=== PATIENT | male | born 1940 | race Caucasian/White ===

== ENCOUNTER → 2016-08-06 | Outpatient (CLI) | payer MEDICARE, OTHER ==
--- NOTE | 2016-08-07 09:12 | PN ---
This patient is coming in for a followup regarding obstructive sleep apnea. His last evaluation was in December of 2013. The patient was diagnosed having severe MYNOR with an AHI of 52 and currently he is on CPAP pressure of 9 cm of water. Note that he has switched his mask to an AirFit P10, medium-size and has been very compliant with the treatment. He continues to see adequate benefit from his CPAP machine. He is waking up alert and refreshed during the day. His weight is up by around 14 pounds, knowing that his baseline weight was around 200. He tells me that is in 2014 due to complicates of breast cancer. The patient himself was involved in a positive stress test and subsequently was found to have extensive coronary artery disease and he underwent a CABG in January of 2015 at [facility]. In regard to his sleep apnea treatment, the patient had a CPAP pressure of 9 cm of water. His treatment remains successful. He is using an AirFit P10 nasal pillow along with a chinstrap. Waking up alert and awake during the day. No hypersomnia or sleepiness during the day. [place] score is only at 8. BP is 135/72, pulse 50, respiration 16, temperature 98.2, saturation 99% on room air. Weight is 214, height is 69 inches. BMI is 31.1. GENERAL APPEARANCE: Calm, comfortable. HEENT: Crowding of posterior pharynx. There is no goiter or neck masses. LUNGS: Clear to auscultation. HEART: Sounds are regular rate and rhythm. Normal S1, S2. No S3, no S4. No murmurs. ABDOMEN: Soft, nontender. No organomegaly. EXTREMITIES: No edema, cyanosis, or clubbing. IMPRESSION: 1. Obstructive sleep apnea, severe, with an apnea-hypopnea index of 52, still on CPAP pressure of 9 cm of water with adequate compliance. The patient is averaging more than 6 hours of CPAP use every night. 2. Coronary artery disease with recent bypass surgery. 3. Diabetes mellitus. 4. Hypertension. 5. Hyperlipidemia. 6. Bronchial asthma. 7. History of periodic limb movements. 8. History of ( )behavioral disorder, currently inactive and stable. PLAN: 1. Continue CPAP at the same level of pressure. 2. Encourage weight loss. 3. Implement good sleep hygiene measures. 4. Tight control of cardiovascular risk factors. 5. Renew his CPAP supplies. 6. See me back in a year or two, if needed.
== END ==
LOC: SLEEP 13:25
PROVIDERS: ATTEND Internal Medicine Critical Care Medicine
DX: G47.33 Obstructive sleep apnea (adult) (pediatric) (principal)

== ENCOUNTER 2016-10-08 08:05 | Day surgery (SDC) | payer MEDICARE, OTHER ==
[2016-10-03 13:10] VITALS: BMI 28.8
[~2016-10-08 08:05] MED LIST: LACTATED RINGERS 1,000 ML IV SCH
[2016-10-08 08:25] VITALS: RESP 16; TEMP 97.3
[2016-10-08] MEDS ORDERED: LIDOCAINE 1% 20 ML VIAL (10MG/ML) FOR IV START SQ ONE (08:30)
[2016-10-08 08:31] LABS: Glucose,Whole Blood 90 mg/dL (75-99)
[2016-10-08] MEDS ORDERED: PROPOFOL 10 MG/ML 20 ML VIAL IV ONE (09:06)
[2016-10-08] MEDS ORDERED: LIDOCAINE 1% INJ 10MG/ML (20 ML MDV) ONE (09:06)
--- NOTE | 2016-10-08 09:37 | P.PCN ---
Date of Procedure: 10/08/16 Preoperative Diagnosis: Postoperative Diagnosis: Procedure(s) Performed: Procedure: Total colonoscopy with biopsy. Preoperative diagnosis: Change in bowel habits. Postoperative diagnosis: Sigmoid diverticulosis with no evidence of acute diverticulitis, strictures, polyps or cancer. Preparation: HalfLytely prep. Sedation: Was provided by anesthesia. Brief clinical history: The patient is a 76-year-old male was referred for this evaluation for change in bowel habits. The patient has been experiencing diarrheic bowel movements for several months. This has not improved with change in his medications which was suspected to be the cause of his symptoms. His last colonoscopy was in 2011. This evaluation is to assess for neoplasia, colitis or other pathology. Procedure: With the patient on his left lateral decubitus position and after informed consent and adequate sedation, the perianal area was inspected and it did not show any fissures or fistulas. There were no masses felt on digital rectal examination. The Olympus CFQ 160L video colonoscope was then inserted in the rectum in the usual fashion and advanced to the cecum. There were multiple diverticular orifices seen scattered in the sigmoid with no evidence of acute diverticulitis or strictures. The mucosa appeared healthy. No polyps or tumors were seen. I obtained biopsies from the right colon than I retroflexed endoscope in the rectum before the endoscope was withdrawn. The patient tolerated the procedure well. Plan: The patient was reassured. Discussed dietary measures. Will await biopsy results and make further plans based on his course and biopsy results. He will follow up with you as planned and I will be happy to see in the office of his symptoms persist. Implants: Indications for Procedure: Operative Findings: Description of Procedure:
[2016-10-08 09:48] LABS: Glucose,Whole Blood 88 mg/dL (75-99)
[2016-10-08 09:52] VITALS: BP 115/67; PULSE 53
== END 2016-10-08 10:18 | disposition home or self-care (01) ==
LOC: ORWHC2ENDO 08:05
DX: K57.30 Diverticulosis of large intestine without perforation or abscess without bleeding (principal); R19.4 Change in bowel habit; R19.7 Diarrhea, unspecified; E11.9 Type 2 diabetes mellitus without complications; K21.9 Gastro-esophageal reflux disease without esophagitis; I25.10 Atherosclerotic heart disease of native coronary artery without angina pectoris; M19.90 Unspecified osteoarthritis, unspecified site; G47.33 Obstructive sleep apnea (adult) (pediatric); J45.909 Unspecified asthma, uncomplicated; N40.0 Benign prostatic hyperplasia without lower urinary tract symptoms; Z95.1 Presence of aortocoronary bypass graft; Z79.82 Long term (current) use of aspirin; Z79.899 Other long term (current) drug therapy; Z88.1 Allergy status to other antibiotic agents; Z88.2 Allergy status to sulfonamides
CPT/HCPCS: 88305; 45380; J2001; J2704

== ENCOUNTER 2017-01-09 20:35 | Inpatient (IN) | payer MEDICARE, OTHER ==
[2017-01-09] MEDS ORDERED: ACETAMINOPHEN TAB 500 MG TAB PO STA (20:55)
[2017-01-09] MEDS ORDERED: ALBUTEROL NEBULIZED 2.5 MG/3 ML INHALATION STA (20:56)
[2017-01-09] MEDS ORDERED: IPRATROPIUM 0.5 MG/2.5 ML NEBU INHALATION STA (20:56)
--- NOTE | 2017-01-09 20:59 | ED ---
General Adult HPI - General Chief complaint: Chest Pain Stated complaint: Chest Pain Time Seen by Provider: 01/09/17 20:43 Source: patient, RN notes reviewed Mode of arrival: ambulatory Limitations: no limitations - History of Present Illness Initial comments: 76 yo male with history of CAD and asthma presents with a one-week history of cough. Cough is productive of yellow sputum. Patient also reports fever chills. His had some nausea and near vomiting, no peter vomiting noted. No diarrhea. Abdominal pain. No rash. No dysuria. Patient does have some bilateral chest pain which is been progressive over the past several days, secondary to coughing. Patient does have history of pneumonia in the past. - Related Data Home Medications Medication Instructions Recorded Confirmed Aspirin EC [Ecotrin] 81 mg PO HS 12/05/14 01/09/17 Lovastatin [Mevacor] 40 mg PO HS 12/05/14 01/09/17 Montelukast Sodium [Singulair] 10 mg PO HS 12/05/14 01/09/17 Omeprazole [PriLOSEC] 20 mg PO DAILY PRN 12/05/14 01/09/17 Metoprolol Tartrate 12.5 mg PO QAM 05/15/15 01/09/17 Tamsulosin [Flomax] 0.4 mg PO DAILY 05/15/15 01/09/17 Beclomethasone Dipropionate [Qvar 1 puff INHALATION RT-BID 06/27/15 01/09/17 40 mcg/puff] Cholecalciferol [Vitamin D3] 1,000 unit PO DAILY 10/03/16 01/09/17 Fexofenadine HCl [Shruthi Allergy] 180 mg PO DAILY 10/03/16 01/09/17 Nerium 1 tab PO DAILY 10/03/16 01/09/17 Acetaminophen Tab [Tylenol Tab] 500 mg PO Q6H PRN 01/09/17 01/09/17 L.acidoph,Paracasei, B.lactis 1 cap PO DAILY 01/09/17 01/09/17 [Probiotic] Allergies Allergy/AdvReac Type Severity Reaction Status Date / Time Sulfa (Sulfonamide Allergy Severe Itching Verified 01/09/17 22:01 Antibiotics) honey Allergy Unknown Verified 01/09/17 22:01 metformin Allergy Diarrhea Verified 01/09/17 22:01 Milk Containing Products Allergy Unknown Verified 01/09/17 22:01 [Dairy] sulfamethoxazole Allergy Diarrhea Verified 01/09/17 22:01 [From Bactrim] trimethoprim [From Bactrim] Allergy Diarrhea Verified 01/09/17 22:01 yeast, dried [yeast] Allergy Unknown Verified 01/09/17 22:01 apples Allergy Unknown Uncoded 01/09/17 20:41 Review of Systems ROS Statement: Those systems with pertinent positive or pertinent negative responses have been documented in the HPI. ROS Other: All systems not noted in ROS Statement are negative. Past Medical History Past Medical History: Asthma, Diabetes Mellitus, GERD/Reflux, Hyperlipidemia, Osteoarthritis (OA), Sleep Apnea/CPAP/BIPAP Additional Past Medical History / Comment(s): migraines, diarrhea, diet control diabetic, History of Any Multi-Drug Resistant Organisms: None Reported Past Surgical History: Coronary Bypass/CABG, Orthopedic Surgery, Tonsillectomy Additional Past Surgical History / Comment(s): marlyn rotator cuff (rt x 2), rt ankle reconstructions, tera fundoplication., CABG 01/2015, nasal surgery, left knee arthroscopy, marlyn cataracts Past Anesthesia/Blood Transfusion Reactions: No Reported Reaction Past Psychological History: Depression Smoking Status: Never smoker - Past Family History Mother Family Medical History: Cancer Additional Family Medical History / Comment(s): skin Father Family Medical History: Congestive Heart Failure (CHF) Additional Family Medical History / Comment(s): pacemaker/aicd General Exam Limitations: no limitations General appearance: alert, in no apparent distress Head exam: Present: atraumatic, normocephalic Eye exam: Present: normal appearance, PERRL ENT exam: Present: normal exam, mucous membranes dry Neck exam: Present: normal inspection. Absent: meningismus Respiratory exam: Present: respiratory distress, wheezes, rhonchi, prolonged expiratory Cardiovascular Exam: Present: normal rhythm, bradycardia GI/Abdominal exam: Present: soft. Absent: distended, tenderness Extremities exam: Present: normal inspection, normal capillary refill. Absent: pedal edema Neurological exam: Present: alert, oriented X3 Psychiatric exam: Present: normal affect, normal mood Skin exam: Present: warm, dry, intact. Absent: cyanosis, diaphoretic Course Vital Signs 01/09/17 01/09/17 01/09/17 20:37 21:14 21:37 Temperature 101.5 F H Pulse Rate 52 L 65 60 Respiratory 20 20 Rate Blood Pressure 140/96 130/65 O2 Sat by Pulse 93 L 95 Oximetry 01/09/17 01/09/17 01/09/17 21:48 21:56 22:19 Temperature 101.3 F H Pulse Rate 59 L 71 72 Respiratory 18 Rate Blood Pressure 118/67 O2 Sat by Pulse 96 Oximetry - Reevaluation(s) Reevaluation #1: 01/09/17 22:47 Patient continues to have conversational dyspnea, continues to require supplemental oxygen. EKG Findings - EKG Comments: EKG Findings:: EKG shows sinus rhythm with frequent PVCs, ventricular rate 76, IN interval 160, QRS duration 92, QTC 423, no ST segment elevation Medical Decision Making - Medical Decision Making 76 yo male presents with a one-week history of cough productive yellow sputum, fever and chills. Patient's found have a left lower lobe pneumonia. He does also have a history of asthma. Laboratory studies reveal what looks, 11.7. Lactic acid is normal at 1.4. Troponin is negative. EKG nonischemic. Patient has conversational dyspnea, continued next 3 wheeze, he does require supplemental oxygen. He will be admitted for treatment of community-acquired pneumonia and asthma exacerbation. Diagnosis: Community acquired pneumonia, asthma exacerbation. - Lab Data Result diagrams: 01/09/17 20:57 01/09/17 20:57 Lab Results 01/09/17 01/09/17 01/09/17 Range/Units 20:57 20:57 20:57 WBC 11.7 H (3.8-10.6) k/uL RBC 4.79 (4.30-5.90) m/uL Hgb 15.2 (13.0-17.5) gm/dL Hct 46.2 (39.0-53.0) % MCV 96.5 (80.0-100.0) fL MCH 31.8 (25.0-35.0) pg MCHC 32.9 (31.0-37.0) g/dL RDW 14.0 (11.5-15.5) % Plt Count 214 (150-450) k/uL Neutrophils % 85 % Lymphocytes % 5 % Monocytes % 8 % Eosinophils % 0 % Basophils % 0 % Neutrophils # 9.9 H (1.3-7.7) k/uL Lymphocytes # 0.6 L (1.0-4.8) k/uL Monocytes # 0.9 (0-1.0) k/uL Eosinophils # 0.0 (0-0.7) k/uL Basophils # 0.0 (0-0.2) k/uL PT (9.0-12.0) sec INR (<1.2) APTT (22.0-30.0) sec Sodium 135 L (137-145) mmol/L Potassium 4.0 (3.5-5.1) mmol/L Chloride 103 (98-107) mmol/L Carbon Dioxide 18 L (22-30) mmol/L Anion Gap 14 mmol/L BUN 9 (9-20) mg/dL Creatinine 0.80 (0.66-1.25) mg/dL Est GFR (MDRD) Af Amer >60 (>60 ml/min/1.73 sqM) Est GFR (MDRD) Non-Af >60 (>60 ml/min/1.73 sqM) Glucose 136 H (74-99) mg/dL Plasma Lactic Acid Blayne 1.4 (0.7-2.0) mmol/L Calcium 8.9 (8.4-10.2) mg/dL Total Bilirubin 1.7 H (0.2-1.3) mg/dL AST 25 (17-59) U/L ALT 38 (21-72) U/L Alkaline Phosphatase 92 (38-126) U/L Troponin I (0.000-0.034) ng/mL Total Protein 7.1 (6.3-8.2) g/dL Albumin 3.6 (3.5-5.0) g/dL 01/09/17 01/09/17 Range/Units 20:57 20:57 WBC (3.8-10.6) k/uL RBC (4.30-5.90) m/uL Hgb (13.0-17.5) gm/dL Hct (39.0-53.0) % MCV (80.0-100.0) fL MCH (25.0-35.0) pg MCHC (31.0-37.0) g/dL RDW (11.5-15.5) % Plt Count (150-450) k/uL Neutrophils % % Lymphocytes % % Monocytes % % Eosinophils % % Basophils % % Neutrophils # (1.3-7.7) k/uL Lymphocytes # (1.0-4.8) k/uL Monocytes # (0-1.0) k/uL Eosinophils # (0-0.7) k/uL Basophils # (0-0.2) k/uL PT 11.1 (9.0-12.0) sec INR 1.1 (<1.2) APTT 27.2 (22.0-30.0) sec Sodium (137-145) mmol/L Potassium (3.5-5.1) mmol/L Chloride (98-107) mmol/L Carbon Dioxide (22-30) mmol/L Anion Gap mmol/L BUN (9-20) mg/dL Creatinine (0.66-1.25) mg/dL Est GFR (MDRD) Af Amer (>60 ml/min/1.73 sqM) Est GFR (MDRD) Non-Af (>60 ml/min/1.73 sqM) Glucose (74-99) mg/dL Plasma Lactic Acid Blayne (0.7-2.0) mmol/L Calcium (8.4-10.2) mg/dL Total Bilirubin (0.2-1.3) mg/dL AST (17-59) U/L ALT (21-72) U/L Alkaline Phosphatase (38-126) U/L Troponin I <0.012 (0.000-0.034) ng/mL Total Protein (6.3-8.2) g/dL Albumin (3.5-5.0) g/dL Disposition Clinical Impression: Community acquired pneumonia, Asthma exacerbation Disposition: ADMITTED IP TO THIS [facility] Condition: Stable Referrals: Jeyson Montalvo MD [Primary Care Provider] - 1-2 days Decision to Admit Reason: Admit from EC Decision Date: 01/09/17 Decision Time: 22:50
[2017-01-09] MEDS: SODIUM CHLORIDE 0.9% 500 ML IV SCH ×2 (21:09→22:00)
[2017-01-09 21:12] LABS: Basophils % (A) 0 %; CH 33.5; CHCM 34.9; Eosinophils % (A) 0 %; HCT 46.2 % (39.0-53.0); HDW 2.51; HGB 15.2 gm/dL (13.0-17.5); Luc # (Auto) 0.23; Luc % (Auto) 2; Lymphocytes # (A) 0.6 k/uL (1.0-4.8); Lymphocytes % (A) 5 %; MCH 31.8 pg (25.0-35.0); MCHC 32.9 g/dL (31.0-37.0); MCV 96.5 fL (80.0-100.0); Mean Platelet Volume 7.8; Monocytes # (A) 0.9 k/uL (0-1.0); Monocytes % (A) 8 %; Neutrophils # (A) 9.9 k/uL (1.3-7.7); Neutrophils % (A) 85 %; RBC 4.79 m/uL (4.30-5.90); WBC 11.7 k/uL (3.8-10.6); WBC (Perox) 11.73
[2017-01-09 21:21] LABS: ALT 38 U/L (21-72); AST 25 U/L (17-59); Alkaline Phosphatase 92 U/L (38-126); Anion Gap 14 mmol/L; Blood Urea Nitrogen 9 mg/dL (9-20); Calcium 8.9 mg/dL (8.4-10.2); Carbon Dioxide 18 mmol/L (22-30); Chloride 103 mmol/L (98-107); Glucose 136 mg/dL (74-99); Non-African American GFR(MDRD) >60 (>60 ml/min/1.73 sqM); Sodium 135 mmol/L (137-145); Total Bilirubin 1.7 mg/dL (0.2-1.3); Total Protein 7.1 g/dL (6.3-8.2)
[2017-01-09 21:27] LABS: INR 1.1 (<1.2); Partial Thromboplastin Time 27.2 sec (22.0-30.0); Prothrombin Time 11.1 sec (9.0-12.0)
--- NOTE | 2017-01-09 21:36 | XR ---
EXAMINATION TYPE: XR chest 2V DATE OF EXAM: 01/09/2017 COMPARISON: 12/14/2014 HISTORY: Asthma. Cough and fever TECHNIQUE: Frontal and lateral views of the chest are obtained. FINDINGS: There is no heart failure. There are sternal wires. Costophrenic angles are clear. There i s no sign of pleural effusion. There is coarsening of lung markings in the left lower lobe. IMPRESSION: There is mild infiltrate in the left lower lobe that is new or increased compared to old exam. No heart failure.
[2017-01-09] MEDS ORDERED: ACETAMINOPHEN TAB 325 MG TAB PO PRN (22:50)
[2017-01-09] MEDS ORDERED: NALOXONE 0.4 MG/ML 1 ML VIAL IV PRN (22:50)
[2017-01-09] MEDS ORDERED: IBUPROFEN 400 MG TAB PO PRN (22:50)
[2017-01-09 22:52] LABS: Appearance,Urine Clear (Clear); Bilirubin,Urine 1+ (Negative); Glucose,Urine (UA) Negative (Negative); Ketones,Urine 3+ (Negative); Leukocyte Esterase,Urine Negative (Negative); Mucus,Urine Few /hpf; Nitrite,Urine Negative (Negative); PH, Urine 6.5 (5.0-8.0); Particle Count 4662; Protein,Urine 1+ (Negative); RBC,Urine 1 /hpf (0-5); Specific Gravity,Urine 1.017 (1.001-1.035); UA Billing (MACRO vs. MICRO) MICRO; WBC,Urine 1 /hpf (0-5)
[2017-01-09] MEDS ORDERED: predniSONE 50 MG TAB PO STA (22:52)
[2017-01-09] MEDS: AZITHROMYCIN 500 MG in SODIUM CHLORIDE 0.9% 250 ML IVPB SCH (22:55)
[2017-01-09] MEDS: SODIUM CHLORIDE 0.9% 1,000 ML IV SCH (22:59)
[2017-01-10] MEDS ORDERED: IPRATROPIUM-ALBUTEROL 3 ML NEB INHALATION SCH
[2017-01-10 00:54] VITALS: BMI 28.4
[2017-01-10] MEDS: IPRATROPIUM-ALBUTEROL 3 ML NEB INHALATION SCH ×4 (07:06→20:16)
[2017-01-10 07:41] LABS: Basophils % (A) 0 %; CH 32.4; CHCM 32.9; Eosinophils % (A) 0 %; HCT 47.2 % (39.0-53.0); HGB 15.6 gm/dL (13.0-17.5); Luc # (Auto) 0.12; Luc % (Auto) 1; Lymphocytes # (A) 0.4 k/uL (1.0-4.8); Lymphocytes % (A) 4 %; MCH 32.7 pg (25.0-35.0); Mean Platelet Volume 7.2; Monocytes # (A) 0.3 k/uL (0-1.0); Monocytes % (A) 4 %; Neutrophils # (A) 8.3 k/uL (1.3-7.7); Neutrophils % (A) 91 %; RBC 4.77 m/uL (4.30-5.90); RDW 13.1 % (11.5-15.5); WBC 9.1 k/uL (3.8-10.6); WBC (Perox) 9.64
[2017-01-10 07:51] LABS: ALT 34 U/L (21-72); AST 27 U/L (17-59); Alkaline Phosphatase 88 U/L (38-126); Anion Gap 13 mmol/L; Blood Urea Nitrogen 12 mg/dL (9-20); Calcium 8.7 mg/dL (8.4-10.2); Carbon Dioxide 21 mmol/L (22-30); Chloride 105 mmol/L (98-107); Glucose 194 mg/dL (74-99); Non-African American GFR(MDRD) >60 (>60 ml/min/1.73 sqM); Sodium 139 mmol/L (137-145); Total Bilirubin 1.1 mg/dL (0.2-1.3); Total Protein 7.1 g/dL (6.3-8.2)
[2017-01-10] MEDS: predniSONE 50 MG TAB PO SCH (08:43)
--- NOTE | 2017-01-10 10:13 | P.CNPUL ---
History of Present Illness Consult date: 01/10/17 Requesting physician: Nadeem Li Reason for consult: dyspnea, cough, pneumonia Chief complaint: Cough, fever, bilateral chest pain History of present illness: This is a 76-year-old white male with previous medical history of asthma, pneumonia, diabetes mellitus, hyperlipidemia, osteoarthritis and sleep apnea, who presented to the emergency department last night on 01/09/2017 with 1 week history of productive cough with yellow sputum. Patient was on a trip [place] with his girlfriend when he noted chills, fatigue, greased appetite and increased productive cough. He developed bilateral chest pain from increased coughing. She is on Qvar inhaler for maintenance treatments, albuterol inhaler and albuterol nebulizers, but he did not use his rescue inhaler or the nebulizer. His girlfriend was also experiencing similar symptoms. He decided to cut his trip short and return home. He stated Dr. Slade for his pulmonary needs on a regular basis, so he called for an appointment which was scheduled for 01/10/2017 at 10:00 Dr. Slade. Last night however his symptoms got increasingly worse and he came in for evaluation to the emergency room. He states his asthma has been under good control for quite a while. He had never been intubated, but had been hospitalized for asthma exacerbations in the past. He is a never smoker, but states stress and ALLERGY season exacerbate his symptoms. Chest x-ray from 01/09/2017 shows mild infiltrate in the left lower lobe, coarsening of lung markings in the left lower lobe. Costophrenic angles are clear. No signs of pleural effusion. On examination patient's lung sounds a few scattered wheezes bilaterally, and respiratory crackles at posterior bases. No signs of respiratory distress. Review of Systems Constitutional: Denies chills, Denies fever Eyes: denies blurred vision, denies pain Ears, nose, mouth and throat: Denies headache, Denies sore throat Cardiovascular: Denies chest pain, Denies shortness of breath Respiratory: Reports dyspnea, Reports excessive sputum, Reports pain, Reports sleep apnea, Reports wheezing, Denies cough Gastrointestinal: Denies abdominal pain, Denies diarrhea, Denies nausea, Denies vomiting Musculoskeletal: Denies myalgias Integumentary: Denies pruritus, Denies rash Neurological: Denies numbness, Denies weakness Psychiatric: Denies anxiety, Denies depression Endocrine: Denies fatigue, Denies weight change Past Medical History Past Medical History: Asthma, Diabetes Mellitus, GERD/Reflux, Hyperlipidemia, Osteoarthritis (OA), Sleep Apnea/CPAP/BIPAP Additional Past Medical History / Comment(s): migraines, diarrhea, diet control diabetic,. 01/10/17 Patient reports that he no longer has DM as of reports from his PCP in August History of Any Multi-Drug Resistant Organisms: None Reported Past Surgical History: Coronary Bypass/CABG, Orthopedic Surgery, Tonsillectomy Additional Past Surgical History / Comment(s): marlyn rotator cuff (rt x 2), rt ankle reconstructions, tera fundoplication., CABG 01/2015, nasal surgery, left knee arthroscopy, marlyn cataracts Past Anesthesia/Blood Transfusion Reactions: No Reported Reaction Past Psychological History: Depression Additional Psychological History / Comment(s): . Smoking Status: Never smoker Past Alcohol Use History: Daily Additional Past Alcohol Use History / Comment(s): pt drinks 4 glasses of wine/ day Past Drug Use History: None Reported - Past Family History Mother Family Medical History: Cancer Additional Family Medical History / Comment(s): skin Father Family Medical History: Congestive Heart Failure (CHF) Additional Family Medical History / Comment(s): pacemaker/aicd Medications and Allergies Home Medications Medication Instructions Recorded Confirmed Type Aspirin EC [Ecotrin] 81 mg PO HS 12/05/14 01/09/17 History Lovastatin [Mevacor] 40 mg PO HS 12/05/14 01/09/17 History Montelukast Sodium [Singulair] 10 mg PO HS 12/05/14 01/09/17 History Omeprazole [PriLOSEC] 20 mg PO DAILY PRN 12/05/14 01/09/17 History Metoprolol Tartrate 12.5 mg PO QAM 05/15/15 01/09/17 History Tamsulosin [Flomax] 0.4 mg PO DAILY 05/15/15 01/09/17 History Beclomethasone Dipropionate [Qvar 1 puff INHALATION RT-BID 06/27/15 01/09/17 History 40 mcg/puff] Cholecalciferol [Vitamin D3] 1,000 unit PO DAILY 10/03/16 01/09/17 History Fexofenadine HCl [Shruthi Allergy] 180 mg PO DAILY 10/03/16 01/09/17 History Nerium 1 tab PO DAILY 10/03/16 01/09/17 History Acetaminophen Tab [Tylenol Tab] 500 mg PO Q6H PRN 01/09/17 01/09/17 History L.acidoph,Paracasei, B.lactis 1 cap PO DAILY 01/09/17 01/09/17 History [Probiotic] Allergies Allergy/AdvReac Type Severity Reaction Status Date / Time Sulfa (Sulfonamide Allergy Severe Itching Verified 01/09/17 22:01 Antibiotics) honey Allergy Unknown Verified 01/09/17 22:01 metformin Allergy Diarrhea Verified 01/09/17 22:01 Milk Containing Products Allergy Unknown Verified 01/09/17 22:01 [Dairy] sulfamethoxazole Allergy Diarrhea Verified 01/09/17 22:01 [From Bactrim] trimethoprim [From Bactrim] Allergy Diarrhea Verified 01/09/17 22:01 yeast, dried [yeast] Allergy Unknown Verified 01/09/17 22:01 apples Allergy Unknown Uncoded 01/09/17 20:41 Physical Exam Vitals: Vital Signs Temp Pulse Pulse Pulse Resp BP BP 01/10/17 08:33 98.3 F 86 18 144/72 01/10/17 07:17 74 01/10/17 07:07 72 01/10/17 05:14 18 01/10/17 00:09 98.3 F 62 16 122/59 01/10/17 00:05 64 18 01/09/17 23:36 98.7 F 74 18 121/66 01/09/17 22:19 101.3 F H 72 18 118/67 01/09/17 21:56 71 01/09/17 21:48 59 L 01/09/17 21:37 60 01/09/17 21:14 65 20 130/65 01/09/17 20:37 101.5 F H 52 L 20 140/96 Pulse Ox 01/10/17 08:33 94 L 01/10/17 07:17 01/10/17 07:07 01/10/17 05:14 01/10/17 00:09 96 01/10/17 00:05 01/09/17 23:36 96 01/09/17 22:19 96 01/09/17 21:56 01/09/17 21:48 01/09/17 21:37 01/09/17 21:14 95 01/09/17 20:37 93 L Intake and Output 01/09/17 01/10/17 01/10/17 22:59 06:59 14:59 Intake Total 400 Balance 400 Intake: Intake, IV Titration 400 Amount Sodium Chloride 0.9% 1, 400 000 ml @ 50 mls/hr IV . Q20H MARTHA Rx#:[id number] Other: # Voids 3 Weight 92.533 kg 92.533 kg GENERAL EXAM: Alert, active, comfortable in no apparent distress. HEAD: Normocephalic. EYES: Normal reaction of pupils, equal size. NOSE: Clear with pink turbinates. THROAT: No erythema or exudates. NECK: No masses, no JVD. CHEST: No chest wall deformity. LUNGS: Equal air entry with no rhonchi. Inspiratory crackles over posterior bases, few scattered wheezes CVS: S1 and S2 normal with no audible mumurs, regular rhythm. ABDOMEN: No hepatosplenomegaly, normal bowel sounds, no guarding or rigidity. SPINE: No scoliosis or deformity SKIN: No rashes CENTRAL NERVOUS SYSTEM: No focal deficits, tone is normal in all 4 extremities. Results - Laboratory Findings CBC and BMP: 01/10/17 06:58 01/10/17 06:58 PT/INR, D-dimer PT 11.1 sec (9.0-12.0) 01/09/17 20:57 INR 1.1 (<1.2) 01/09/17 20:57 Abnormal lab findings: Abnormal Labs 01/09/17 01/09/17 01/09/17 20:57 20:57 22:42 WBC 11.7 H Neutrophils # 9.9 H Lymphocytes # 0.6 L Sodium 135 L Carbon Dioxide 18 L Glucose 136 H Total Bilirubin 1.7 H Urine Protein 1+ H Urine Ketones 3+ H Urine Bilirubin 1+ H Urine Mucus Few H 01/10/17 01/10/17 06:58 06:58 WBC Neutrophils # 8.3 H Lymphocytes # 0.4 L Sodium Carbon Dioxide 21 L Glucose 194 H Total Bilirubin Urine Protein Urine Ketones Urine Bilirubin Urine Mucus - Diagnostic Findings Chest x-ray: report reviewed Assessment and Plan Plan: Assessment: #1. Acute left lower lobe pneumonia, community-acquired #2. Acute bronchial asthma exacerbation #3. Obstructive sleep apnea, severe, with AHI index of 52, on CPAP of 9 cm of water at home #4 coronary artery disease with recent bypass surgery. #5 diabetes mellitus #6 hypertension #7 hyperlipidemia #8 sigmoid diverticulosis, status post colonoscopy with biopsy on 10/08/2016 Plan: Continue with antibiotic coverage in the form of Rocephin and Zithromax, continue with DuoNeb nebulized treatments and prednisone. Patient states he feels dramatically better today. Would like to go home today. Vital signs are stable, on 2 L per nasal cannula with O2 saturations around 96. Increase activity as tolerated. We'll continue with IV antibiotics for today. Patient can be discharged home tomorrow morning assuming his condition continues to improve. He is in agreement with the plan. I performed a history & physical examination of the patient and discussed their management with my nurse practitioner, Jaclyn Encarnacion. I reviewed the nurse practitioner's note and agree with the documented findings and plan of care.
--- NOTE | 2017-01-10 12:44 | P.HPIM ---
History of Present Illness 76-year-old pleasant gentleman came in with complains of cough with yellow sputum production for about a week and patient was having fevers and generalized weakness. Patient does have history of asthma. Patient is found to have infiltrate in the left lower lobe. Patient was started on Rocephin and is otherwise along with prednisone patient was wheezing apparently yesterday which she has gotten better. Patient denied any shortness of breath orthopnea or PND. Patient denied any dysuria patient denied any nausea vomiting. Patient is feeling much better today. Patient is not in any significant respiratory distress at this point of time. Review of Systems REVIEW OF SYSTEMS: CONSTITUTIONAL: No fever, no malaise, no fatigue. HEENT: No recent visual problems or hearing problems. Denied any sore throat. CARDIOVASCULAR: No chest pain, orthopnea, PND, no palpitations, no syncope. PULMONARY: no hemoptysis. GASTROINTESTINAL: No diarrhea, no nausea, no vomiting, no abdominal pain. Normoactive bowel sounds. NEUROLOGICAL: No headaches, no weakness, no numbness. HEMATOLOGICAL: Denies any bleeding or petechiae. GENITOURINARY: Denies any burning micturition, frequency, or urgency. MUSCULOSKELETAL/RHEUMATOLOGICAL: Denies any joint pain, swelling, or any muscle pain. ENDOCRINE: Denies any polyuria or polydipsia. The rest of the 14-point review of systems is negative. Past Medical History Past Medical History: Asthma, Diabetes Mellitus, GERD/Reflux, Hyperlipidemia, Osteoarthritis (OA), Sleep Apnea/CPAP/BIPAP Additional Past Medical History / Comment(s): migraines, diarrhea, diet control diabetic,. 01/10/17 Patient reports that he no longer has DM as of reports from his PCP in August History of Any Multi-Drug Resistant Organisms: None Reported Past Surgical History: Coronary Bypass/CABG, Orthopedic Surgery, Tonsillectomy Additional Past Surgical History / Comment(s): marlyn rotator cuff (rt x 2), rt ankle reconstructions, tera fundoplication., CABG 01/2015, nasal surgery, left knee arthroscopy, marlyn cataracts Past Anesthesia/Blood Transfusion Reactions: No Reported Reaction Past Psychological History: Depression Additional Psychological History / Comment(s): . Smoking Status: Never smoker Past Alcohol Use History: Daily Additional Past Alcohol Use History / Comment(s): pt drinks 4 glasses of wine/ day Past Drug Use History: None Reported - Past Family History Mother Family Medical History: Cancer Additional Family Medical History / Comment(s): skin Father Family Medical History: Congestive Heart Failure (CHF) Additional Family Medical History / Comment(s): pacemaker/aicd Medications and Allergies Home Medications Medication Instructions Recorded Confirmed Type Aspirin EC [Ecotrin] 81 mg PO HS 12/05/14 01/09/17 History Lovastatin [Mevacor] 40 mg PO HS 12/05/14 01/09/17 History Montelukast Sodium [Singulair] 10 mg PO HS 12/05/14 01/09/17 History Omeprazole [PriLOSEC] 20 mg PO DAILY PRN 12/05/14 01/09/17 History Metoprolol Tartrate 12.5 mg PO QAM 05/15/15 01/09/17 History Tamsulosin [Flomax] 0.4 mg PO DAILY 05/15/15 01/09/17 History Beclomethasone Dipropionate [Qvar 1 puff INHALATION RT-BID 06/27/15 01/09/17 History 40 mcg/puff] Cholecalciferol [Vitamin D3] 1,000 unit PO DAILY 10/03/16 01/09/17 History Fexofenadine HCl [Shruthi Allergy] 180 mg PO DAILY 10/03/16 01/09/17 History Nerium 1 tab PO DAILY 10/03/16 01/09/17 History Acetaminophen Tab [Tylenol Tab] 500 mg PO Q6H PRN 01/09/17 01/09/17 History L.acidoph,Paracasei, B.lactis 1 cap PO DAILY 01/09/17 01/09/17 History [Probiotic] Allergies Allergy/AdvReac Type Severity Reaction Status Date / Time Sulfa (Sulfonamide Allergy Severe Itching Verified 01/09/17 22:01 Antibiotics) honey Allergy Unknown Verified 01/09/17 22:01 metformin Allergy Diarrhea Verified 01/09/17 22:01 Milk Containing Products Allergy Unknown Verified 01/09/17 22:01 [Dairy] sulfamethoxazole Allergy Diarrhea Verified 01/09/17 22:01 [From Bactrim] trimethoprim [From Bactrim] Allergy Diarrhea Verified 01/09/17 22:01 yeast, dried [yeast] Allergy Unknown Verified 01/09/17 22:01 apples Allergy Unknown Uncoded 01/09/17 20:41 Physical Exam Vitals: Vital Signs Temp Pulse Pulse Pulse Resp BP BP 01/10/17 11:44 72 01/10/17 11:34 68 01/10/17 08:33 98.3 F 86 18 144/72 01/10/17 07:17 74 01/10/17 07:07 72 01/10/17 05:14 18 01/10/17 00:09 98.3 F 62 16 122/59 01/10/17 00:05 64 18 01/09/17 23:36 98.7 F 74 18 121/66 01/09/17 22:19 101.3 F H 72 18 118/67 01/09/17 21:56 71 01/09/17 21:48 59 L 01/09/17 21:37 60 01/09/17 21:14 65 20 130/65 01/09/17 20:37 101.5 F H 52 L 20 140/96 Pulse Ox 01/10/17 11:44 01/10/17 11:34 01/10/17 08:33 94 L 01/10/17 07:17 01/10/17 07:07 01/10/17 05:14 01/10/17 00:09 96 01/10/17 00:05 01/09/17 23:36 96 01/09/17 22:19 96 01/09/17 21:56 01/09/17 21:48 01/09/17 21:37 01/09/17 21:14 95 01/09/17 20:37 93 L Intake and Output 01/09/17 01/10/17 01/10/17 22:59 06:59 14:59 Intake Total 400 Balance 400 Intake: Intake, IV Titration 400 Amount Sodium Chloride 0.9% 1, 400 000 ml @ 50 mls/hr IV . Q20H [facility] Rx#:[id number] Other: Voiding Method Toilet # Voids 3 Weight 92.533 kg 92.533 kg PHYSICAL EXAMINATION: GENERAL: The patient is alert and oriented x3, not in any acute distress. Well developed, well nourished. HEENT: Pupils are round and equally reacting to light. EOMI. No scleral icterus. No conjunctival pallor. Normocephalic, atraumatic. No pharyngeal erythema. No thyromegaly. CARDIOVASCULAR: S1 and S2 present. No murmurs, rubs, or gallops. PULMONARY: Chest is clear to auscultation, no wheezing or crackles. rhonchorous breath sounds ABDOMEN: Soft, nontender, nondistended, normoactive bowel sounds. No palpable organomegaly. MUSCULOSKELETAL: No joint swelling or deformity. EXTREMITIES: No cyanosis, clubbing, or pedal edema. NEUROLOGICAL: Gross neurological examination did not reveal any focal deficits. SKIN: No rashes. Results CBC & Chem 7: 01/10/17 06:58 01/10/17 06:58 Labs: Abnormal Lab Results - Last 24 Hours (Table) 01/09/17 01/09/17 01/09/17 Range/Units 20:57 20:57 22:42 WBC 11.7 H (3.8-10.6) k/uL Neutrophils # 9.9 H (1.3-7.7) k/uL Lymphocytes # 0.6 L (1.0-4.8) k/uL Sodium 135 L (137-145) mmol/L Carbon Dioxide 18 L (22-30) mmol/L Glucose 136 H (74-99) mg/dL Total Bilirubin 1.7 H (0.2-1.3) mg/dL Urine Protein 1+ H (Negative) Urine Ketones 3+ H (Negative) Urine Bilirubin 1+ H (Negative) Urine Mucus Few H (None) /hpf 01/10/17 01/10/17 Range/Units 06:58 06:58 WBC (3.8-10.6) k/uL Neutrophils # 8.3 H (1.3-7.7) k/uL Lymphocytes # 0.4 L (1.0-4.8) k/uL Sodium (137-145) mmol/L Carbon Dioxide 21 L (22-30) mmol/L Glucose 194 H (74-99) mg/dL Total Bilirubin (0.2-1.3) mg/dL Urine Protein (Negative) Urine Ketones (Negative) Urine Bilirubin (Negative) Urine Mucus (None) /hpf Thrombosis Risk Factor Assmnt - Choose All That Apply Any of the Below Risk Factors Present?: Yes Each Factor Represents 1 point: Obesity (BMI >25), Serious lung disease incl. pneumonia (< 1month) Other Risk Factors: Yes Each Risk Factor Represents 3 Points: Age 75 years or older Thrombosis Risk Factor Assessment Total Risk Factor Score: 5 Thrombosis Risk Factor Assessment Level: High Risk Assessment and Plan Plan: #1 sepsis secondary to pneumonia left lower lobe, community acquired mostly pneumococcal pneumonia patient is on ceftriaxone's demise which will be continued. #2 asthma with minimal exacerbation with improvement in symptoms of wheezing today patient will be can you done oral steroids inhalational treatments. #3 type 2 diabetes mellitus next and 4 gastro-cervical reflux disease #5 hyperlipidemia #6 osteoarthritis #7 sleep apnea for each for which patient uses CPAP machine Patient will be continued on his home medications for above-mentioned chronic medical problems if patient is afebrile and the clinically doing well will be discharged tomorrow on a week of antibiotics.
[2017-01-10] MEDS: SODIUM CHLORIDE 0.9% 1,000 ML IV SCH (16:41)
[2017-01-10] MEDS: AZITHROMYCIN 500 MG in SODIUM CHLORIDE 0.9% 250 ML IVPB SCH (21:03)
[2017-01-11] MEDS: IPRATROPIUM-ALBUTEROL 3 ML NEB INHALATION SCH ×2 (08:15→11:59)
[2017-01-11] MEDS: predniSONE 50 MG TAB PO SCH (08:53)
[2017-01-11] MEDS: SODIUM CHLORIDE 0.9% 1,000 ML IV SCH (11:39)
[2017-01-11 13:37] VITALS: BP 127/74; PULSE 61; RESP 16; TEMP 98.3
--- NOTE | 2017-01-11 13:39 | P.PN ---
Subjective Principal diagnosis: Left lower lobe pneumonia, community-acquired This is a 76-year-old white male with previous medical history of asthma, pneumonia, diabetes mellitus, hyperlipidemia, osteoarthritis and sleep apnea, who presented to the emergency department last night on 01/09/2017 with 1 week history of productive cough with yellow sputum. Patient was on a trip up [place] with his girlfriend when he noted chills, fatigue, greased appetite and increased productive cough. He developed bilateral chest pain from increased coughing. She is on Qvar inhaler for maintenance treatments, albuterol inhaler and albuterol nebulizers, but he did not use his rescue inhaler or the nebulizer. His girlfriend was also experiencing similar symptoms. He decided to cut his trip short and return home. He stated Dr. Slade for his pulmonary needs on a regular basis, so he called for an appointment which was scheduled for 01/10/2017 at 10:00 Dr. Slade. Last night however his symptoms got increasingly worse and he came in for evaluation to the emergency room. He states his asthma has been under good control for quite a while. He had never been intubated, but had been hospitalized for asthma exacerbations in the past. He is a never smoker, but states stress and ALLERGY season exacerbate his symptoms. Chest x-ray from 01/09/2017 shows mild infiltrate in the left lower lobe, coarsening of lung markings in the left lower lobe. Costophrenic angles are clear. No signs of pleural effusion. On examination patient's lung sounds a few scattered wheezes bilaterally, and respiratory crackles at posterior bases. No signs of respiratory distress. Patient is seen again today 01/11/2017 in follow-up on the regular medical floor. He is awake and alert in no acute distress. He is doing better today as compared to yesterday. He has a loose productive cough of yellow sputum. No fever, chills or night sweats. He is maintaining O2 saturations in the 90s on room air. He has been hemodynamically stable. Blood and urine cultures are negative. No leukocytosis. Objective - Vital Signs Vital signs: Vital Signs Temp 97.8 F 01/11/17 07:17 Pulse 72 01/11/17 12:14 Resp 18 01/11/17 07:20 BP 136/74 01/11/17 07:17 Pulse Ox 94 L 01/11/17 07:17 Intake & Output 01/10/17 01/11/17 01/11/17 18:59 06:59 18:59 Intake Total 1075 Balance 1075 Intake: Intake, IV Titration 575 Amount Sodium Chloride 0.9% 1, 575 000 ml @ 50 mls/hr IV . Q20H [facility] Rx#:[id number] Oral 500 Other: Voiding Method Toilet Toilet # Voids 1 2 1 - Exam GENERAL EXAM: Alert, active, comfortable in no apparent distress. HEAD: Normocephalic. EYES: Normal reaction of pupils, equal size. NOSE: Clear with pink turbinates. THROAT: No erythema or exudates. NECK: No masses, no JVD. CHEST: No chest wall deformity. LUNGS: Equal air entry with faint rhonchi left base.. CVS: S1 and S2 normal with no audible murmurs, regular rhythm. ABDOMEN: No hepatosplenomegaly, normal bowel sounds, no guarding or rigidity. SPINE: No scoliosis or deformity SKIN: No rashes CENTRAL NERVOUS SYSTEM: No focal deficits, tone is normal in all 4 extremities. Extremities: There is no peripheral edema. No clubbing, no cyanosis. Peripheral pulses are intact. - Labs CBC & Chem 7: 01/10/17 06:58 01/10/17 06:58 Labs: Microbiology - Last 24 Hours (Table) 01/09/17 22:42 Urine Culture - Final Urine,Voided 01/09/17 21:35 Blood Culture - Preliminary Blood No Growth after 24 hours 01/09/17 20:57 Blood Culture - Preliminary Blood No Growth after 24 hours Assessment and Plan Plan: Assessment: #1. Acute left lower lobe pneumonia, community-acquired #2. Acute bronchial asthma exacerbation #3. Obstructive sleep apnea, severe, with AHI index of 52, on CPAP of 9 cm of water at home #4. Coronary artery disease with recent bypass surgery. #5. Diabetes mellitus #6. Hypertension #7. Hyperlipidemia #8. Sigmoid diverticulosis, status post colonoscopy with biopsy on 10/08/2016 Plan: The patient was seen and evaluated by Dr. Banegas. He is cleared for discharge from the pulmonary standpoint. He did complete his course of oral antibiotics. Continue his home pulmonary medications. Follow up with Dr. Slade in 1-2 weeks' time. We'll repeat a chest x-ray then. He is however encouraged to call sooner with any recurrence of symptoms or other questions or concerns. I have completed a history and physical examination on the above patient. His lungs are mainly clear with just a few scattered rhonchi in the left posterior base. I agree with the note as dictated by my nurse practitioner, Meera Emerson. We have reviewed and discussed the assessment and plan of care.
--- NOTE | 2017-01-11 13:53 | P.DS ---
Providers Date of admission: 01/09/17 22:50 Attending physician: Nadeem Li Primary care physician: [facility] Course: Patient was admitted for left lower lobe pneumonia, community-acquired and also acute bronchial asthma exacerbation patient is clinically doing well will be discharged on antibiotics and weaning dose of steroids. PHYSICAL EXAMINATION: GENERAL: The patient is alert and oriented x3, not in any acute distress. Well developed, well nourished. HEENT: Pupils are round and equally reacting to light. EOMI. No scleral icterus. No conjunctival pallor. Normocephalic, atraumatic. No pharyngeal erythema. No thyromegaly. CARDIOVASCULAR: S1 and S2 present. No murmurs, rubs, or gallops. PULMONARY: Chest is clear to auscultation, no wheezing or crackles. ABDOMEN: Soft, nontender, nondistended, normoactive bowel sounds. No palpable organomegaly. MUSCULOSKELETAL: No joint swelling or deformity. EXTREMITIES: No cyanosis, clubbing, or pedal edema. NEUROLOGICAL: Gross neurological examination did not reveal any focal deficits. SKIN: No rashes. #1 sepsis secondary to pneumonia left lower lobe, community acquired mostly pneumococcal pneumonia #2 asthma with minimal exacerbation w #3 type 2 diabetes mellitus #5 hyperlipidemia #6 osteoarthritis #7 sleep apnea for each for which patient uses CPAP machine Patient Condition at Discharge: Stable Plan - Discharge Summary New Discharge Prescriptions: New predniSONE 10 mg PO DAILY #30 tab Azithromycin [Zithromax Tri-Steve] 500 mg PO DAILY #3 tab Cefuroxime Axetil [Ceftin] 500 mg PO BID #14 tab Continue Omeprazole [PriLOSEC] 20 mg PO DAILY PRN PRN Reason: Heartburn Montelukast Sodium [Singulair] 10 mg PO HS Lovastatin [Mevacor] 40 mg PO HS Aspirin EC [Ecotrin Low Dose] 81 mg PO HS Tamsulosin [Flomax] 0.4 mg PO DAILY Metoprolol Tartrate 12.5 mg PO QAM Beclomethasone Dipropionate [Qvar 40 mcg/puff] 1 puff INHALATION RT-BID Cholecalciferol [Vitamin D3] 1,000 unit PO DAILY Fexofenadine HCl [Shruthi Allergy] 180 mg PO DAILY Nerium 1 tab PO DAILY Acetaminophen Tab [Tylenol] 500 mg PO Q6H PRN PRN Reason: Cold Symptoms L.acidoph,Paracasei, B.lactis [Probiotic] 1 cap PO DAILY Discharge Medication List Aspirin EC [Ecotrin Low Dose] 81 mg PO HS 12/05/14 [History] Lovastatin [Mevacor] 40 mg PO HS 12/05/14 [History] Montelukast Sodium [Singulair] 10 mg PO HS 12/05/14 [History] Omeprazole [PriLOSEC] 20 mg PO DAILY PRN 12/05/14 [History] Metoprolol Tartrate 12.5 mg PO QAM 05/15/15 [History] Tamsulosin [Flomax] 0.4 mg PO DAILY 05/15/15 [History] Beclomethasone Dipropionate [Qvar 40 mcg/puff] 1 puff INHALATION RT-BID [History] Cholecalciferol [Vitamin D3] 1,000 unit PO DAILY 10/03/16 [History] Fexofenadine HCl [Shruthi Allergy] 180 mg PO DAILY 10/03/16 [History] Nerium 1 tab PO DAILY 10/03/16 [History] Acetaminophen Tab [Tylenol] 500 mg PO Q6H PRN 01/09/17 [History] L.acidoph,Paracasei, B.lactis [Probiotic] 1 cap PO DAILY 01/09/17 [History] Azithromycin [Zithromax Tri-Steve] 500 mg PO DAILY #3 tab 01/11/17 [Rx] Cefuroxime Axetil [Ceftin] 500 mg PO BID #14 tab 01/11/17 [Rx] predniSONE 10 mg PO DAILY #30 tab 01/11/17 [Rx] Follow up Appointment(s)/Referral(s): Jesus Alberto Slade DO [Doctor of Osteopathic Medicine] - 1 Week Jeyson Montalvo MD [Primary Care Provider] - 3 Days Patient Instructions/Handouts: Viral Pneumonia (DC) Discharge Disposition: HOME SELF-CARE
[2017-01-11] MEDS ORDERED: AZITHROMYCIN 500 MG TAB PO SCH (21:00)
== END 2017-01-11 13:34 | disposition home or self-care (01) | DRG 871 ==
LOC: EC 20:35 → 3SUR 22:50
PROVIDERS: ADMIT Hospitalist; ATTEND Hospitalist
DX: A41.9 Sepsis, unspecified organism (principal); J13 Pneumonia due to Streptococcus pneumoniae; E11.9 Type 2 diabetes mellitus without complications; J45.901 Unspecified asthma with (acute) exacerbation; I10 Essential (primary) hypertension; F32.9 Major depressive disorder, single episode, unspecified; E78.5 Hyperlipidemia, unspecified; G47.33 Obstructive sleep apnea (adult) (pediatric); I25.10 Atherosclerotic heart disease of native coronary artery without angina pectoris; K21.9 Gastro-esophageal reflux disease without esophagitis; K57.30 Diverticulosis of large intestine without perforation or abscess without bleeding; M19.90 Unspecified osteoarthritis, unspecified site; Z79.899 Other long term (current) drug therapy; Z82.49 Family history of ischemic heart disease and other diseases of the circulatory system; Z95.1 Presence of aortocoronary bypass graft; Z79.82 Long term (current) use of aspirin; Z88.2 Allergy status to sulfonamides
CPT/HCPCS: 36415; 71020; 80053; 81001; 83605; 84484; 85025; 85610; 85730; 87040; 87086; 93005; 94640; 96361; 96365; 99285

== ENCOUNTER → 2017-05-12 | Outpatient (CLI) | payer MEDICARE, OTHER ==
--- NOTE | 2017-05-12 10:49 | US ---
EXAMINATION TYPE: US abdomen complete DATE OF EXAM: 05/12/2017 COMPARISON: NONE CLINICAL HISTORY: R68.81 early satiety; takes medication for asthma; diarrhea EXAM MEASUREMENTS: Liver Length: 14.8 cm Gallbladder Wall: 0.1 cm CBD: 0.3 cm Spleen: 10.6 cm Right Kidney: 10.9 x 5.4 x 5.5 cm Left Kidney: 11.3 x 6.1 x 5.7 cm Pancreas: hyperechoic and tail is obscured by overlying bowel gas Liver: assessed intercostally due to overlying bowel gas; simple appearing cyst noted in right lobe = 1.2 x 1.2 x 1.1cm Gallbladder: wnl Evidence for sonographic Brown's sign: No CBD: wnl Spleen: wnl Right Kidney: mid cortical cyst = 2.7 x 2.1 x 2.5cm; hyperechoic parallel line focus is noted near c yst and suggests calcified vessel hernandez near cortex. Left Kidney: wnl Upper IVC: wnl Abd Aorta: mildly ectatic mid level; intimal thickening imaged lower aorta and calcification is note d lower aorta and into left common iliac artery IMPRESSION: 1. Mid right renal cyst. 2. Simple hepatic cyst
== END | disposition home or self-care (01) ==
LOC: RADUSWWP 08:54
PROVIDERS: ATTEND Internal Medicine
DX: N28.1 Cyst of kidney, acquired (principal); K76.89 Other specified diseases of liver
CPT/HCPCS: 76700

== ENCOUNTER 2017-05-27 08:47 | Day surgery (SDC) | payer MEDICARE, OTHER ==
[2017-05-27] MEDS ORDERED: LIDOCAINE 1% 20 ML VIAL (10MG/ML) FOR IV START INTRADERMA ONE (09:05)
[2017-05-27 09:28] VITALS: RESP 16; TEMP 97.5
[2017-05-27 09:31] LABS: Glucose,Whole Blood 108 mg/dL (75-99)
[2017-05-27] MEDS ORDERED: PROPOFOL 10 MG/ML 20 ML VIAL IV ONE (09:50)
[2017-05-27] MEDS ORDERED: GLYCOPYRROLATE 0.2 MG/ML 2 ML VIAL ONE (09:50)
[2017-05-27] MEDS ORDERED: fentaNYL (PF) 50 MCG/ML 2 ML AMP ONE (09:50)
--- NOTE | 2017-05-27 10:18 | P.PCN ---
Date of Procedure: 05/27/17 Procedure(s) Performed: Procedure: Esophagogastroduodenoscopy and biopsy. Preoperative diagnosis: Chronic diarrhea and early satiety. Postoperative diagnosis: 1. 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 2. Mild antral gastritis. 3. Biopsies obtained from the duodenum , antrum and esophagus. Preparation sedation: Was provided by anesthesia. Brief clinical history: The patient is a 77-year-old male who is scheduled for this evaluation for the above reasons. I performed a colonoscopy in September 2016 because of history of diarrhea for several months and that showed sigmoid diverticulosis. Biopsies showed mature colonic mucosa with no pathologic changes. Procedure: With the patient on his left lateral decubitus position and after informed consent and adequate sedation, I passed the Olympus-GIF 160 video upper endoscope through the cricopharyngeus down the esophagus. GE junction was around 42-43 cm from the incisors. The distal esophagus showed some erythema and few white sticky exudates raising the possibility of Itzel esophagitis. There were no erosions or ulcers or any strictures or Lopez's esophagus. The endoscope was then passed into the stomach which was insufflated with air and inspected in detail including the retroflex view in the cardia. The fundoplication was noted in this view and appeared in good position. There was some mottling and erythema in the antrum but no ulcers or erosions. Pyloric channel, duodenal bulb, as well as area and descending duodenum appeared within normal limits. I obtained multiple biopsies from the duodenum, antrum and esophagus then the endoscope was withdrawn. The patient tolerated the procedure well. Plan: The patient was reassured. Will await pathology results and make further recommendations based on his course and biopsy results. He will follow up with you as planned and I will be happy to see in the office if his symptoms persist or recur.
[2017-05-27 10:42] VITALS: BP 140/63; PULSE 52
== END 2017-05-27 11:02 ==
LOC: ORWHC2ENDO 08:47
DX: K29.50 Unspecified chronic gastritis without bleeding (principal); K52.9 Noninfective gastroenteritis and colitis, unspecified; J45.909 Unspecified asthma, uncomplicated; K21.0 Gastro-esophageal reflux disease with esophagitis; M19.90 Unspecified osteoarthritis, unspecified site; E78.5 Hyperlipidemia, unspecified; G47.33 Obstructive sleep apnea (adult) (pediatric); Z95.1 Presence of aortocoronary bypass graft; G43.909 Migraine, unspecified, not intractable, without status migrainosus; I25.10 Atherosclerotic heart disease of native coronary artery without angina pectoris; Z79.82 Long term (current) use of aspirin; Z79.51 Long term (current) use of inhaled steroids; Z88.2 Allergy status to sulfonamides; Z88.8 Allergy status to other drugs, medicaments and biological substances; Z79.899 Other long term (current) drug therapy
CPT/HCPCS: 88305; 43239; J3010; J2704

== ENCOUNTER → 2017-08-26 | Outpatient (CLI) | payer MEDICARE, OTHER ==
--- NOTE | 2017-08-26 17:31 | PN ---
PROGRESS NOTE This is a 77-year-old male patient, who is coming in for an annual check regarding the obstructive sleep apnea. The patient was diagnosed having MYNOR with an AHI of 52 and currently on CPAP pressure of 9 cm of water. He is using AirFit P10 nose mask medium size. Upon today's evaluation, I noted that the mask itself is not fitting his nostrils as well and he would benefit from an AirFit P 10 large size mask. At the same time, he is having difficulty with his head gear being loose and the fact that he has quite active sleep in terms of movement, the mask comes of his face on several occasions. For that reason, I have made recommendations to use an alternative mask which would be the Nunez FX large size. Both masks were trialed out and the patient opted to proceed with a Nunez FX nose pillow knowing that this lasted more stable and can be fixed in a more efficient and tight way on his head. I reviewed his compliancy data. The patient has been averaging 6.9 hours of CPAP use per night. He is currently on CPAP pressure of 9. He is utilizing his CPAP for more than a four hours for 8 out of 30 days. His weight is relatively stable. He goes a few pounds up and down every year. For most part there has been no major change in his weight. His in 2014. He is living alone right now. His cardiac status is stable and he is post bypass surgery back in 2015 and that was done and [facility]. No angina. No palpitations. No nighttime awakening for shortness of breath or any chest pain. REVIEW OF SYSTEMS: 12-point review of system was done. Positive findings are mentioned above in the history of present illness. His treatment remains successful. Occasions he has had 1 single episode of night terrors over this past 1 year. No nightmares. No sleepwalking. No sleep talking. No restlessness in lower extremities. PHYSICAL EXAMINATION: BP is 127/72, pulse 60, respirations 16, temp 97.7. Saturation 96% on room air. Height is 5 feet, 10 inches, and weight is 208. BMI is 29.8. General appearance: Calm, comfortable in no acute distress. Head is atraumatic, normocephalic. NECK: Supple. There is no JVD. No goiter or neck masses. LUNGS: Clear to auscultation. HEART: Sounds regular rate and rhythm. Normal S1, S2. No S3, S4. No murmurs. ABDOMEN: Soft, nontender. No organomegaly. EXTREMITIES: No edema. No cyanosis or clubbing. Neurologic AO x3. There is no focal neurological deficits. PSYCHIATRIC: Appropriate mood and affect. SKIN: Negative for any wounds or ulceration. IMPRESSION: 1. Symptomatic severe obstructive sleep apnea with an AHI of 52 currently on CPAP pressure of 9 cm of water. 2. Coronary artery disease. Previous bypass surgery. 3. Diabetes. 4. Hypertension. 5. Hyperlipidemia. 6. Bronchial asthma. 7. Periodic limb movements. PLAN: 1. Continue CPAP with pressure of 9. 2. Utilize a Nunez FX instead of the AirFit P 10. We will utilize the Nunez FX large- sized for better seal of his nostril and avoid leaks. 3. Encourage weight loss. 4. Tight control of cardiovascular risk factors. 5. We will see him back in a year's time in follow up earlier if needed. MMODL / IJN: [id number] /
== END | disposition home or self-care (01) ==
LOC: SLEEP 11:34
PROVIDERS: ATTEND Internal Medicine Critical Care Medicine
DX: G47.33 Obstructive sleep apnea (adult) (pediatric) (principal); G47.61 Periodic limb movement disorder; I25.10 Atherosclerotic heart disease of native coronary artery without angina pectoris; E11.9 Type 2 diabetes mellitus without complications; I10 Essential (primary) hypertension; E78.5 Hyperlipidemia, unspecified; J45.909 Unspecified asthma, uncomplicated; Z98.890 Other specified postprocedural states

== ENCOUNTER → 2018-09-29 | Outpatient (CLI) | payer MEDICARE, OTHER ==
--- NOTE | 2018-09-29 16:16 | PN ---
PROGRESS NOTE 80-year-old male patient,with known history of COPD, severe with an AHI of 52. He is still using his older generation ResMed S9 series which is set at a pressure of 9 cm of water. On today's evaluation, the patient is coming in for an annual check. He wanted to update his CPAP machine. He wants to proceed with a newer generation ResMed unit as he can follow his compliancy and clinical response more effectively with a newer generation CPAP unit. He is doing well. His weight is up by around 5 pounds. He is averaging around 7.3 hours on the CPAP use. He is waking up refreshed and alert during the day. He goes to bed around 11 o'clock, wakes up 5-6 o'clock in the morning. No angina. No palpitations. No chest pain. No shortness of breath. He is still using the Nunez FX large size nose pillows. He found that this is the most effective mask for him which caused minimum amount of leak if any. He is currently on Effexor 37.5 mg p.o. daily which was started for mood changes. He is also known to have coronary artery disease and he has undergone previous bypass surgery and other comorbidities include diabetes, hypertension, hyperlipidemia and bronchial asthma. No reported symptoms of restless legs syndrome at this point in time. No nightmares. No hallucinations. No cataplexy. No sleep paralysis. REVIEW OF SYSTEMS: Fourteen-point review of system was done. Positive findings are mentioned above in history of present illness. He is awake and alert. Does not fall asleep while doing day-to-day activities and his [place] score is currently at 13. He has history of ocular migraines and is under the care of Dr. Slade in that regard. PHYSICAL EXAMINATION: His blood pressure includes 130/73, pulse 50, respirations 16, temperature 97.7. Saturation 95% on room air. Height is 5 feet 10 inches, weight is 213. BMI 30.5. GENERAL APPEARANCE: Calm comfortable. Head is atraumatic, normocephalic. NECK: Supple. No JVD. No goiter. No neck masses. Lungs diminished, otherwise clear. HEART: Sounds regular rate and rhythm. Normal S1, S2. No S3. No murmurs. ABDOMEN: Soft, nontender. No organomegaly. EXTREMITIES: No edema. No cyanosis or clubbing. NEUROLOGIC: Alert and oriented x3. No focal neurological deficits. PSYCHIATRIC: Negative for anxiety, positive depression. Currently on venlafaxine. IMPRESSION: 1. Severe obstructive sleep apnea with an AHI of 52 currently on CPAP pressure of 90 utilizing a Nunez FX nose pillow and treatment has been quite successful averaging more than 7 hours of CPAP use per night. 2. Coronary artery disease. Previous bypass surgery. 3. Ocular migraines. 4. Diabetes. 5. Hypertension. 6. Hyperlipidemia. 7. Bronchial asthma. PLAN: 1. Order a newer generation CPAP unit which will be ResMed air sense unit, preferably on auto set. This will be fixed at the pressure of 9 cm of water with a C-flex of 3. 2. Keep the patient on Nunez FX large size nose pillows. 3. Encourage weight loss. 4. Follow up with the primary and neurology regarding his ocular migraines. 5. Cardiovascular status is stable. No angina. No palpitations. No other complaints otherwise for now. 6. His treatment was successful. The patient will be ordered a new CPAP machine. He will see me back in 30 to 90 days after obtaining his CPAP unit. MMODL / IJN: [id number] /
== END ==
LOC: SLEEP 13:04
PROVIDERS: ATTEND Internal Medicine Critical Care Medicine
DX: G47.33 Obstructive sleep apnea (adult) (pediatric) (principal); I25.10 Atherosclerotic heart disease of native coronary artery without angina pectoris; G43.809 Other migraine, not intractable, without status migrainosus; E11.9 Type 2 diabetes mellitus without complications; I10 Essential (primary) hypertension; E78.5 Hyperlipidemia, unspecified; J45.909 Unspecified asthma, uncomplicated; Z99.89 Dependence on other enabling machines and devices

== ENCOUNTER → 2018-12-29 | Outpatient (CLI) | payer MEDICARE, OTHER ==
--- NOTE | 2018-12-29 16:57 | PN ---
PROGRESS NOTE [facility]EP [facility]ENTER PROGRESS NOTE: DATE OF SERVICE: 12/29/2018 This is a 78-year-old male patient who is coming in for a compliancy check, as the patient was given a new CPAP unit. The patient is known to have severe obstructive sleep apnea and he carries an AHI of 52. He used to have a ResMed S9 series and today he is coming in to check on his ResMed AirSense unit, which is a CPAP unit set at a pressure of 9 cm of water. He is benefiting from the treatment. He is using a Nunez FX mask, medium size. Based on the compliance data, the patient has been averaging more than 4 hours 100% of the time. Leak is 26 L/minute and AHI is down to 2. As such, the patient is very compliant, and he is benefitting from the treatment. He is seeking alternative masks, knowing that the current mask that he is using is easily slipping off his face. No angina. No palpitations. No shortness of breath or chest pain. No other new complaints for now. REVIEW OF SYSTEMS: Fourteen-point review of systems was done. Positive findings were all mentioned above in the history of present illness. No tiredness or sleepiness currently. He is very compliant with CPAP therapy. He seems to be alert and awake. No restlessness in the lower extremities. No nocturnal chest pain, shortness of breath, heartburn or nausea or vomiting or abdominal pain. No nocturnal urinary frequency. No nocturia. No other complaints otherwise for now. PHYSICAL EXAMINATION: VITAL SIGNS: BP is 143/66, pulse 49, respirations 16, temperature 98.4. Weight is 209. [place] score is 4. Saturation 95% on room air. GENERAL APPEARANCE: Calm, comfortable. HEAD: Atraumatic, normocephalic. NECK: Supple. No JVD. No goiter or neck masses. Mallampati class IV. LUNGS: Clear to auscultation. HEART: Heart sounds are regular rate and rhythm. Normal S1, S2. No S3, S4. No murmurs. ABDOMEN: Soft, nontender. No organomegaly. EXTREMITIES: No edema. No cyanosis or clubbing. NEUROLOGIC: Alert and oriented x3. No focal neurological deficits. IMPRESSION: 1. Severe obstructive sleep apnea; apnea/hypopnea index of 52. The patient is coming in for a compliancy check regarding his new CPAP unit which is set at a pressure of 9 cm of water. 2. Obesity. PLAN: 1. The patient is compliant. 2. The patient is benefitting from the treatment. 3. Compliance data was checked. 4. Encourage using the CPAP at the same level of pressure. 5. Offer this patient AirFit P30i nose pillows, which he likes, and he is contemplating switching to this type of mask after trying it for a while. A sample was provided to the patient. 6. Encourage weight loss. Implement good sleep hygiene measures. See me back in a year's time in followup, earlier if needed. MMODL / IJN: [id number] /
== END ==
LOC: SLEEP 13:10
PROVIDERS: ATTEND Internal Medicine Critical Care Medicine
DX: G47.33 Obstructive sleep apnea (adult) (pediatric) (principal); E66.9 Obesity, unspecified; Z99.89 Dependence on other enabling machines and devices

== ENCOUNTER 2019-03-05 11:37 | Emergency (ER) | payer MEDICARE, OTHER ==
[2019-03-05 11:42] VITALS: TEMP 97.7
--- NOTE | 2019-03-05 13:03 | CT ---
EXAMINATION TYPE: CT brain bianca tellez DATE OF EXAM: 03/05/2019 COMPARISON: HISTORY: Fall, head injury CT DLP: 1514.2 mGycm Automated exposure control for dose reduction was used. TECHNIQUE: CT scan of the head and cervical spine are performed without contrast. FINDINGS: There is no acute intracranial hemorrhage, mass effect, or midline shift identified. The ventricles and sulci are within normal limits in size. White matter demyelination changes are presen t. Cortical atrophy is likely age-related. There are foci of encephalomalacia. Cerebral vascular calc ifications are present. The globes are intact and the visualized sinuses are remarkable for extensive inflammatory change, postop change in the maxillary sinuses, sclerotic change sinus wall may be due to chronic infection. Cervical spine is visualized in its entirety from C1 through upper thoracic levels and demonstrates s atisfactory alignment without evidence of acute fracture or dislocation. There is multilevel spondyl osis. Multilevel foraminal encroachment. Prevertebral soft tissue appears within normal limits. Inte rstitial changes are present at the lung apices. The C1-C2 articulation is unremarkable. IMPRESSION: 1. There is no acute fracture or dislocation evident in the cervical spine. 2. No acute intracranial hemorrhage, mass effect, or midline shift is seen. 3. Additional findings above.
--- NOTE | 2019-03-05 13:26 | ED ---
Head Injury HPI - General Chief complaint: Head Injury Stated complaint: Fall, head injury Time Seen by Provider: 03/05/19 11:40 Source: patient Mode of arrival: ambulatory Limitations: no limitations - History of Present Illness Initial comments: The patient is a 79-year-old male with past medical history of coronary artery disease status post bypass, asthma and hyperlipidemia who presents emergency Department after he sustained a fall on Friday. Son is at bedside and helps provide the history. He states that his father has a long-standing history of alcohol abuse. She reports that he drinks almost daily. Will normally have multiple glasses of wine. [place] Patient had a significant amount of alcohol on Friday. He then sustained 3 falls with blunt head trauma. Son states that the patient had no loss of consciousness. The following day he had some nausea without vomiting. Patient has not had any alcohol since. The patient denies any headaches or visual changes. No unilateral numbness or tingling. No neck pain or back pain. He did sustain one additional fall this week because he slipped on ice. No auditory or visual hallucinations. Does have a resting tremor which he states is chronic. No history of withdrawal seizures. Son is concerned and wants to get the patient into rehab. They're also concerned with the persistent nausea. There are no other alleviating, precipitating or modifying factors - Related Data Home Medications Medication Instructions Recorded Confirmed Aspirin EC [Ecotrin Low Dose] 81 mg PO HS 12/05/14 05/23/17 Lovastatin [Mevacor] 40 mg PO HS 12/05/14 05/23/17 Montelukast Sodium [Singulair] 10 mg PO HS 12/05/14 05/23/17 Omeprazole [PriLOSEC] 20 mg PO DAILY PRN 12/05/14 05/23/17 Metoprolol Tartrate 12.5 mg PO QAM 05/15/15 05/23/17 Tamsulosin [Flomax] 0.4 mg PO QAM 05/15/15 05/23/17 Beclomethasone Dipropionate [Qvar 1 puff INHALATION RT-BID 06/27/15 05/23/17 40 mcg/puff] Cholecalciferol [Vitamin D3 (25 1,000 unit PO DAILY 10/03/16 05/23/17 Mcg = 1000 Iu)] Fexofenadine HCl [Shruthi Allergy] 180 mg PO DAILY PRN 10/03/16 05/23/17 Nerium 1 tab PO DAILY 10/03/16 05/23/17 Acetaminophen Tab [Tylenol] 500 mg PO Q6H PRN 01/09/17 05/23/17 Allergies/Adverse reactions: Allergies Allergy/AdvReac Type Severity Reaction Status Date / Time Sulfa (Sulfonamide Allergy Severe Itching Verified 03/05/19 11:42 Antibiotics) cheese Allergy Unknown, Verified 03/05/19 11:42 ALLERGY TESTING RESULTS honey Allergy Unknown Verified 03/05/19 11:42 metformin Allergy Diarrhea Verified 03/05/19 11:42 Milk Containing Products Allergy Unknown Verified 03/05/19 11:42 [Dairy] sulfamethoxazole Allergy Diarrhea Verified 03/05/19 11:42 [From Bactrim] trimethoprim [From Bactrim] Allergy Diarrhea Verified 03/05/19 11:42 yeast, dried [yeast] Allergy Unknown Verified 03/05/19 11:42 apples Allergy Unknown Uncoded 03/05/19 11:42 Review of Systems ROS Statement: Those systems with pertinent positive or pertinent negative responses have been documented in the HPI. ROS Other: All systems not noted in ROS Statement are negative. Past Medical History Past Medical History: Asthma, GERD/Reflux, Hyperlipidemia, Osteoarthritis (OA), Sleep Apnea/CPAP/BIPAP Additional Past Medical History / Comment(s): 01/10/17 ADMISSION FOR PNEUMONIA. Patient reports that he no longer has DM as of reports from DR. OSMAN. Migraines. USES CPAP. History of Any Multi-Drug Resistant Organisms: None Reported Past Surgical History: Coronary Bypass/CABG, Orthopedic Surgery, Tonsillectomy Additional Past Surgical History / Comment(s): marlyn rotator cuff (rt x 2), rt ankle reconstructions, tera fundoplication., CABG 01/2015, nasal surgery, left knee arthroscopy, marlyn cataracts Past Anesthesia/Blood Transfusion Reactions: No Reported Reaction Past Psychological History: Depression Smoking Status: Never smoker Past Alcohol Use History: Daily Past Drug Use History: None Reported - Past Family History Mother Family Medical History: Cancer Additional Family Medical History / Comment(s): skin Father Family Medical History: Congestive Heart Failure (CHF) Additional Family Medical History / Comment(s): pacemaker/aicd General Exam Limitations: no limitations General appearance: alert, in no apparent distress Head exam: Present: atraumatic, normocephalic, normal inspection, other (negative flores sign. No hemotympanum. No racoon eyes. ) Eye exam: Present: normal appearance, PERRL, EOMI. Absent: scleral icterus, conjunctival injection, periorbital swelling ENT exam: Present: normal exam, mucous membranes moist Neck exam: Present: normal inspection. Absent: tenderness, meningismus, lymphadenopathy Respiratory exam: Present: normal lung sounds bilaterally. Absent: respiratory distress, wheezes, rales, rhonchi, stridor Cardiovascular Exam: Present: regular rate, normal rhythm, normal heart sounds. Absent: systolic murmur, diastolic murmur, rubs, gallop, clicks GI/Abdominal exam: Present: soft, normal bowel sounds. Absent: distended, tenderness, guarding, rebound, rigid Extremities exam: Present: normal inspection, full ROM, normal capillary refill. Absent: tenderness, pedal edema, joint swelling, calf tenderness Back exam: Present: normal inspection Neurological exam: Present: alert, oriented X3, CN II-XII intact Psychiatric exam: Present: normal affect, normal mood Skin exam: Present: warm, dry, intact, normal color. Absent: rash Course Vital Signs 03/05/19 03/05/19 11:39 13:42 Temperature 97.7 F Pulse Rate 66 70 Respiratory 20 16 Rate Blood Pressure 164/60 170/70 O2 Sat by Pulse 98 98 Oximetry Medical Decision Making - Medical Decision Making Upon arrival the patient was placed into room 25. A thorough history and physical exam was performed. No focal neurologic deficits on exam. Patient was sent for CT of his brain and cervical spine which demonstrates no acute fracture or dislocation. No acutehemorrhage or mass effect or midline shift. I discussed these results with the patient. Patient does not meet criteria for inpatient admission as there are no signs of impending DTs. The patient last drink 5 days ago. I did have the social workersShanice talk to the patient. He is given resources regarding substance abuse and treatment centers. The patient is to follow-up with primary care doctor in 2-4 days. Return to the emergency room for any new or worsening symptoms. Patient was discharged home in stable condition Disposition Clinical Impression: Closed head injury, Chronic alcohol abuse Disposition: HOME SELF-CARE Condition: Stable Instructions (If sedation given, give patient instructions): Head Injury (ED), Abuse of Alcohol (ED) Additional Instructions: Please follow-up with your primary care doctor in 2-4 days. Return to the emergency room for any new or worsening symptoms Is patient prescribed a controlled substance at d/c from ED?: No Referrals: Jeyson Osman MD [Primary Care Provider] - 1-2 days Time of Disposition: 13:26
[2019-03-05 13:44] VITALS: BP 170/70; PULSE 70; RESP 16
== END 2019-03-05 13:32 | disposition home or self-care (01) ==
LOC: EC 11:37
DX: S09.90XA Unspecified injury of head, initial encounter (principal); F10.10 Alcohol abuse, uncomplicated; I25.10 Atherosclerotic heart disease of native coronary artery without angina pectoris; J45.909 Unspecified asthma, uncomplicated; E78.5 Hyperlipidemia, unspecified; G47.30 Sleep apnea, unspecified; Z79.82 Long term (current) use of aspirin; Z79.51 Long term (current) use of inhaled steroids; Z79.899 Other long term (current) drug therapy; Z88.2 Allergy status to sulfonamides; Z91.018 Allergy to other foods; Z88.8 Allergy status to other drugs, medicaments and biological substances; Z91.011 Allergy to milk products; Z99.89 Dependence on other enabling machines and devices; Z86.69 Personal history of other diseases of the nervous system and sense organs; Z95.1 Presence of aortocoronary bypass graft; W00.0XXA Fall on same level due to ice and snow, initial encounter; Y92.009 Unspecified place in unspecified non-institutional (private) residence as the place of occurrence of the external cause
CPT/HCPCS: 70450; 72125; 99283

== ENCOUNTER → 2020-01-11 | Outpatient (CLI) | payer MEDICARE, OTHER ==
--- NOTE | 2020-01-11 16:53 | PN ---
PROGRESS NOTE Carroll is 79, coming to see me in followup regarding his obstructive sleep apnea. This is an annual check. He is post bypass surgery for coronary artery disease. He has also undergone a right ankle fusion. He is a diabetic, has hypertension and BPH as comorbidities. He does do some self catheterization. In terms of sleep apnea, the patient continues to be under adequate treatment with CPAP therapy. Note that the patient is currently on a CPAP pressure of 8 cm of water. Treatment has been successful over the past one year. The patient has been extremely compliant. His baseline AHI is 52, consistent with severe disease. I offered him the AirThe Filter P30 I large size nasal pillows and he had been doing very well, very happy with his mask interface. His [place] score is down to 8. He is utilizing his machine on average of 7.2 hours per night. His leak is in order of 18 L/minutes and his AHI is down to 0.6. No specific complaints. No aerophagia. No flatulence. No gastric distention. No heartburn. No chest pain. No shortness of breath or any increased lower extremity edema. He does do self catheterization prior to going to bed and he sleeps well throughout the night. REVIEW OF SYSTEMS: A 14-point review of system was done, positive findings are mentioned in history of present illness. No weight gain. BP is 130/75, pulse 88, respirations 16, temperature 98.8, saturation 98% on room air. [place] score is 8. BMI is 29.5, weight is 209, height is 5, 10. GENERAL APPEARANCE: Calm, comfortable. HEAD: Atraumatic, normocephalic. NECK: Supple. No JVD. No goiter or neck masses. LUNGS: Clear to auscultation. HEART: Heart sounds are regular rate and rhythm, normal S1, S2. No S3, S4. No murmurs. ABDOMEN: Soft, nontender. No organomegaly. EXTREMITIES: No edema, no cyanosis or clubbing. IMPRESSION: 1. Obstructive sleep apnea, severe AHI of 52, currently on CPAP pressure of 8 with successful treatment. 2. Hypersomnia, improved. [place] score is down to 8. 3. Coronary disease with previous bypass surgery. 4. Right ankle fusion. 5. Diabetes mellitus. 6. Hypertension. 7. Hyperlipidemia. 8. Asthma. 9. BPH, undergoes soft catheterization. PLAN: 1. Continue same CPAP pressure treatment. 2. Keep the same mask interface which is an AirFit P30I large size. 3. Encourage weight loss. 4. Follow up with Urology regarding symptoms of BPH and self catheterization. 5. Cardiac status, stable. 6. See me back in a year's time in followup. BETH / MARKN: [id number] /
== END | disposition home or self-care (01) ==
LOC: SLEEP 15:13
PROVIDERS: ATTEND Internal Medicine Critical Care Medicine
DX: G47.33 Obstructive sleep apnea (adult) (pediatric) (principal); G47.10 Hypersomnia, unspecified; E11.9 Type 2 diabetes mellitus without complications; I10 Essential (primary) hypertension; E78.5 Hyperlipidemia, unspecified; J45.909 Unspecified asthma, uncomplicated; N40.0 Benign prostatic hyperplasia without lower urinary tract symptoms; I25.10 Atherosclerotic heart disease of native coronary artery without angina pectoris; Z99.89 Dependence on other enabling machines and devices; Z98.890 Other specified postprocedural states

== ENCOUNTER 2020-06-04 13:23 | Inpatient (IN) | payer MEDICARE, OTHER ==
[2020-06-04] MEDS ORDERED: SODIUM CHLORIDE 0.9% 500 ML 500 ML IV STA (13:48)
--- NOTE | 2020-06-04 13:56 | ED ---
General Adult HPI - General Chief complaint: Altered Mental Status Stated complaint: confusion Time Seen by Provider: 06/04/20 13:25 Source: patient, RN notes reviewed, old records reviewed Mode of arrival: ambulatory Limitations: no limitations - History of Present Illness Initial comments: This is an 80-year-old male with past mental history significant for asthma. Patient comes in today stating his left side is lost fine motor control. Patient states grossly he feels normal strength and is able to and bili however to manipulate his fingerstick blood pressure he is unable to do so. Patient states also his leg doesn't be quite as coordinated as it normally as though he feels as though strength is normal. Patient denies any visual disturbance. Patient denies any slurred speech per patient has any facial droop. Patient denies any headache. Patient denies any chest pain palpitations difficulty breathing shortness breath. Patient denies any recent fever chills or cough per patient denies any abdominal pain patient denies nausea vomiting diarrhea. Patient states she was seen at [facility] yesterday for some potential breathing issues but did not mention to them anything about his coordination problems. She states she woke up with the symptoms yesterday morning. - Related Data Home Medications Medication Instructions Recorded Confirmed Aspirin EC [Ecotrin Low Dose] 81 mg PO HS 12/05/14 05/23/17 Lovastatin [Mevacor] 40 mg PO HS 12/05/14 05/23/17 Montelukast Sodium [Singulair] 10 mg PO HS 12/05/14 05/23/17 Omeprazole [PriLOSEC] 20 mg PO DAILY PRN 12/05/14 05/23/17 Metoprolol Tartrate 12.5 mg PO QAM 05/15/15 05/23/17 Tamsulosin [Flomax] 0.4 mg PO QAM 05/15/15 05/23/17 Beclomethasone Dipropionate [Qvar 1 puff INHALATION RT-BID 06/27/15 05/23/17 40 mcg/puff] Cholecalciferol [Vitamin D3 (25 1,000 unit PO DAILY 10/03/16 05/23/17 Mcg = 1000 Iu)] Fexofenadine HCl [Shruthi Allergy] 180 mg PO DAILY PRN 10/03/16 05/23/17 Nerium 1 tab PO DAILY 10/03/16 05/23/17 Acetaminophen Tab [Tylenol] 500 mg PO Q6H PRN 01/09/17 05/23/17 Allergies Allergy/AdvReac Type Severity Reaction Status Date / Time Sulfa (Sulfonamide Allergy Severe Itching Verified 06/04/20 13:29 Antibiotics) cheese Allergy Unknown, Verified 06/04/20 13:29 ALLERGY TESTING RESULTS honey Allergy Unknown Verified 06/04/20 13:29 metformin Allergy Diarrhea Verified 06/04/20 13:29 Milk Containing Products Allergy Unknown Verified 06/04/20 13:29 [Dairy] sulfamethoxazole Allergy Diarrhea Verified 06/04/20 13:29 [From Bactrim] trimethoprim [From Bactrim] Allergy Diarrhea Verified 06/04/20 13:29 yeast, dried [yeast] Allergy Unknown Verified 06/04/20 13:29 apples Allergy Unknown Uncoded 06/04/20 13:29 Review of Systems ROS Statement: Those systems with pertinent positive or pertinent negative responses have been documented in the HPI. ROS Other: All systems not noted in ROS Statement are negative. Past Medical History Past Medical History: Asthma, GERD/Reflux, Hyperlipidemia, Osteoarthritis (OA), Sleep Apnea/CPAP/BIPAP Additional Past Medical History / Comment(s): 01/10/17 ADMISSION FOR PNEUMONIA. Patient reports that he no longer has DM as of reports from DR. OSMAN. Migraines. USES CPAP. History of Any Multi-Drug Resistant Organisms: None Reported Past Surgical History: Coronary Bypass/CABG, Orthopedic Surgery, Tonsillectomy Additional Past Surgical History / Comment(s): marlyn rotator cuff (rt x 2), rt ankle reconstructions, tera fundoplication., CABG 01/2015, nasal surgery, left knee arthroscopy, marlyn cataracts Past Anesthesia/Blood Transfusion Reactions: No Reported Reaction Past Psychological History: Depression Smoking Status: Never smoker Past Alcohol Use History: None Reported Past Drug Use History: None Reported - Past Family History Mother Family Medical History: Cancer Additional Family Medical History / Comment(s): skin Father Family Medical History: Congestive Heart Failure (CHF) Additional Family Medical History / Comment(s): pacemaker/aicd General Exam - General Exam Comments Initial Comments: GENERAL: Patient is well-developed and well-nourished. Patient is nontoxic and well- hydrated and is in no acute distress. ENT: Neck is soft and supple. No significant lymphadenopathy is noted. Oropharynx is clear. Moist mucous membranes. Neck has full range of motion without eliciting any pain. EYES: The sclera were anicteric and conjunctiva were pink and moist. Extraocular movements were intact and pupils were equal round and reactive to light. Eyelids were unremarkable. PULMONARY: Unlabored respirations. Good breath sounds bilaterally. No audible rales rhonchi or wheezing was noted. CARDIOVASCULAR: There is a regular rate and rhythm without any murmurs gallops or rubs. ABDOMEN: Soft and nontender with normal bowel sounds. No palpable organomegaly was noted. There is no palpable pulsatile mass. SKIN: Skin is clear with no lesions or rashes and otherwise unremarkable. NEUROLOGIC: Patient is alert and oriented x3. Cranial nerves II through XII are grossly intact. Motor and sensory are also intact. Normal speech, volume and content. Symmetrical smile. Cerebellar exam grossly intact. Patient is unable to touch his thumb to all the fingertips on the left hand but can do so on the right. Patient also has a little bit of weakness with dorsiflexion of left foot. MUSCULOSKELETAL: Normal extremities with adequate strength and full range of motion. No lower extremity swelling or edema. No calf tenderness. LYMPHATICS: No significant lymphadenopathy is noted PSYCHIATRIC: Normal psychiatric evaluation. Limitations: no limitations Course Vital Signs 06/04/20 13:26 Temperature 97.8 F Pulse Rate 61 Respiratory 18 Rate Blood Pressure 138/75 O2 Sat by Pulse 98 Oximetry Medical Decision Making - Medical Decision Making EKG shows sinus bradycardia 56 bpm MA interval is 240 QRS is 106 QT interval 408 QTC is 393. Patient's EKG shows no ST segment elevation or depression. CT of the brain shows a new infarct on the right side. I spoke with Dr. Sanches he agreed to admit the patient admitted the patient I wrote admitting orders. I consult the neurology. - Lab Data Result diagrams: 06/04/20 14:10 06/04/20 14:10 Lab Results 06/04/20 06/04/20 Range/Units 14:10 14:10 WBC 8.1 (3.8-10.6) k/uL RBC 5.08 (4.30-5.90) m/uL Hgb 15.6 (13.0-17.5) gm/dL Hct 46.1 (39.0-53.0) % MCV 90.7 (80.0-100.0) fL MCH 30.6 (25.0-35.0) pg MCHC 33.8 (31.0-37.0) g/dL RDW 14.0 (11.5-15.5) % Plt Count 183 (150-450) k/uL MPV 7.3 Neutrophils % 68 % Lymphocytes % 18 % Monocytes % 9 % Eosinophils % 2 % Basophils % 1 % Neutrophils # 5.5 (1.3-7.7) k/uL Lymphocytes # 1.5 (1.0-4.8) k/uL Monocytes # 0.7 (0-1.0) k/uL Eosinophils # 0.2 (0-0.7) k/uL Basophils # 0.1 (0-0.2) k/uL Sodium 136 L (137-145) mmol/L Potassium 4.6 (3.5-5.1) mmol/L Chloride 104 (98-107) mmol/L Carbon Dioxide 24 (22-30) mmol/L Anion Gap 8 mmol/L BUN 10 (9-20) mg/dL Creatinine 0.86 (0.66-1.25) mg/dL Est GFR (CKD-EPI)AfAm >90 (>60 ml/min/1.73 sqM) Est GFR (CKD-EPI)NonAf 82 (>60 ml/min/1.73 sqM) Glucose 109 H (74-99) mg/dL Calcium 9.2 (8.4-10.2) mg/dL Total Bilirubin 0.9 (0.2-1.3) mg/dL AST 28 (17-59) U/L ALT 20 (4-49) U/L Alkaline Phosphatase 84 (38-126) U/L Total Protein 7.5 (6.3-8.2) g/dL Albumin 4.0 (3.5-5.0) g/dL Disposition Clinical Impression: CVA (cerebral vascular accident) Disposition: ADMITTED IP TO THIS [facility] Referrals: Jeyson Osman MD [Primary Care Provider] - 1-2 days Time of Disposition: 14:40
[2020-06-04 14:24] LABS: Basophils # (A) 0.1 k/uL (0-0.2); Basophils % (A) 1 %; Eosinophils # (A) 0.2 k/uL (0-0.7); Eosinophils % (A) 2 %; HCT 46.1 % (39.0-53.0); HGB 15.6 gm/dL (13.0-17.5); Lymphocytes # (A) 1.5 k/uL (1.0-4.8); Lymphocytes % (A) 18 %; MCH 30.6 pg (25.0-35.0); MCHC 33.8 g/dL (31.0-37.0); MCV 90.7 fL (80.0-100.0); Mean Platelet Volume 7.3; Monocytes # (A) 0.7 k/uL (0-1.0); Monocytes % (A) 9 %; Neutrophils # (A) 5.5 k/uL (1.3-7.7); Neutrophils % (A) 68 %; Platelet Count 183 k/uL (150-450); RBC 5.08 m/uL (4.30-5.90); WBC 8.1 k/uL (3.8-10.6)
--- NOTE | 2020-06-04 14:34 | CT ---
EXAMINATION TYPE: CT brain wo con for TPA DATE OF EXAM: 06/04/2020 COMPARISON: 03/05/2019 HISTORY: Weakness and confusion CT DLP: 1111.4 mGycm Automated exposure control for dose reduction was used. There is cerebral cortical atrophy. There is no mass effect nor midline shift. There is no sign of in tracranial hemorrhage. There is 2 x 1 cm hypodensity in the anterior right internal capsule related t o old lacunar infarct. There is prominent right side Virchow-Rashi space. The calvarium is intact. Th e skull base is intact. IMPRESSION: There is a new right side internal capsule lacunar infarct extending to the caudate nucleus compared to old exam. No hemorrhage.
[2020-06-04 14:35] LABS: ALT 20 U/L (4-49); AST 28 U/L (17-59); African American GFR (CKD) >90 (>60 ml/min/1.73 sqM); Alkaline Phosphatase 84 U/L (38-126); Anion Gap 8 mmol/L; Blood Urea Nitrogen 10 mg/dL (9-20); Calcium 9.2 mg/dL (8.4-10.2); Carbon Dioxide 24 mmol/L (22-30); Chloride 104 mmol/L (98-107); Glucose 109 mg/dL (74-99); Non-African American GFR(CKD) 82 (>60 ml/min/1.73 sqM); Potassium 4.6 mmol/L (3.5-5.1); Sodium 136 mmol/L (137-145); Total Bilirubin 0.9 mg/dL (0.2-1.3); Total Protein 7.5 g/dL (6.3-8.2)
[2020-06-04] MEDS ORDERED: ASPIRIN 325 MG TAB PO STA (14:41)
[2020-06-04 14:43] LABS: Partial Thromboplastin Time 25.1 sec (22.0-30.0)
--- NOTE | 2020-06-04 16:25 | XR ---
EXAMINATION TYPE: XR chest 2V DATE OF EXAM: 06/04/2020 COMPARISON: 01/09/2017 HISTORY: Cough and fever TECHNIQUE: 2 views FINDINGS: There is no heart failure nor confluent pneumonic infiltrate. Costophrenic angles are clear . There are sternal wires. There are chest leads. Bony thorax appears intact. IMPRESSION: No active cardiopulmonary disease. No change.
[2020-06-04 16:48] LABS: Glucose,Whole Blood 85 mg/dL (75-99)
[2020-06-04] MEDS ORDERED: ACETAMINOPHEN TAB 500 MG TAB PO PRN (17:41)
[2020-06-04] MEDS ORDERED: ALBUTEROL NEBULIZED 2.5 MG/3 ML INHALATION PRN (17:41)
[2020-06-04] MEDS ORDERED: LORATADINE 10 MG TAB PO PRN (17:41)
[2020-06-04] MEDS ORDERED: DOCUSATE 100 MG CAP PO PRN (17:41)
[2020-06-04] MEDS ORDERED: PANTOPRAZOLE 40 MG TABLET PO PRN (17:41)
[2020-06-04] MEDS: MONTELUKAST 10 MG TAB PO SCH (21:42)
[2020-06-04] MEDS: TAMSULOSIN 0.4 MG CAP.ER.24H PO SCH (21:42)
[2020-06-04] MEDS: FLUTICASONE 44 MCG INHALER INHALATION SCH (21:48)
[2020-06-05 07:57] LABS: Cholesterol 165 mg/dL (<200); HDL Cholesterol 39 mg/dL (40-60); LDL Cholesterol,Calculated 102 mg/dL (0-99); Triglycerides 122 mg/dL (<150)
[2020-06-05] MEDS: METOPROLOL TARTRATE 12.5 MG TAB PO SCH (08:19)
[2020-06-05] MEDS: TAMSULOSIN 0.4 MG CAP.ER.24H PO SCH ×2 (08:19→20:14)
[2020-06-05] MEDS: ASPIRIN 81 MG PO SCH (08:19)
[2020-06-05] MEDS: VENLAFAXINE HCL ER 37.5 MG CAP PO SCH (08:19)
--- NOTE | 2020-06-05 11:18 | US ---
EXAMINATION TYPE: US carotid duplex BILAT DATE OF EXAM: 06/05/2020 COMPARISON: NONE CLINICAL HISTORY: Acute CVA. EXAM MEASUREMENTS: RIGHT: Peak Systolic Velocity (PSV) cm/sec ----- Right CCA: 62.5 ----- Right ICA: 115.1 ----- Right ECA: 91.2 ICA/CCA ratio: 1.8 RIGHT: End Diastole cm/sec ----- Right CCA: 6.4 ----- Right ICA: 12.8 ----- Right ECA: 5.1 LEFT: Peak Systolic Velocity (PSV) cm/sec ----- Left CCA: 66.9 ----- Left ICA: 83.8 ----- Left ECA: 104.8 ICA/CCA ratio: 1.3 LEFT: End Diastole cm/sec ----- Left CCA: 10.9 ----- Left ICA: 16.0 ----- Left ECA: 7.9 VERTEBRALS (direction of flow): Right Vertebral: Antegrade Left Vertebral: Antegrade Rhythm: Normal Bilateral atherosclerotic changes. Large plaque left ICA. No increased velocities seen. Right ICA tor tuosity. IMPRESSION: Atheromatous plaquing without significant flow-limiting stenosis. Criteria for Assigning % of Stenosis / Diameter reduction (Estimation based on the indirect measurements of the internal carotid artery velocities (ICA PSV). 1. Normal (no stenosis)=ICA PSV < 125 cm/s: ratio < 2.0: ICA EDV<40 cm/s. 2. Less than 50% stenosis=ICA PSV < 125 cm/s: ratio < 2.0: ICA EDV<40 cm/s. 3. 50 to 69% stenosis=ICA PSV of 125 to 230 cm/s: ration 2.0 ? 4.0: ICA EDV 40-100 cm/s. 4. Greater than 70% stenosis to near occlusion= ICA PSV > 230 cm/s: ratio > 4.0: ICA EDV > 100 cm/s. 5. Near occlusion= ICA PSV velocities may be low or undetectable: variable ratio and ICA EDV. 6. Total occlusion=unable to detect flow.
[2020-06-05] MEDS: FLUTICASONE 44 MCG INHALER INHALATION SCH ×2 (11:42→22:04)
[2020-06-05] MEDS ORDERED: ASPIRIN 325 MG TAB PO SCH (12:00)
[2020-06-05] MEDS: CLOPIDOGREL 75 MG TAB PO SCH (12:20)
--- NOTE | 2020-06-05 12:44 | P.CNNES ---
History of Present Illness Consult date: 06/05/20 Requesting physician: Billy Chan Reason for Consult: CVA History of Present Illness: Patient is a 80-year-old male came to the hospital yesterday at 1:23 PM with left-sided weakness. Patient states that on Friday night on 06/02/2020, he went to [employer]. He stayed there for couple hours but he believes that he may have had exposure to diesel fumes. Patient says that he has chronic anosmia therefore he cannot smell anything. However the room he was in was close to the pipes where diesel was. He went home and neck morning when he woke up, he states he felt "scrambled in parts". He had trouble getting dressed. On Friday he continues to have "disruption in the thoughts". He went to [facility], where he was treated for some breathing difficulty and was released home. Next day, which is yesterday, on Friday he went to urgent care, where he was noted to have some slurred speech and left-sided weakness, therefore he was referred to [facility]. His symptoms now has mostly resolved. Patient himself denies any weakness of arm or leg. Vital signs on arrival blood pressure 138/75, pulse rate [address] head showed a new right side anterior internal capsular lacunar infarct extending to the caudate nucleus compared to old exam from 03/05/2019. There is still evidence of old lacunar infarct in the right basal ganglia. EKG shows sinus bradycardia with first-degree AV block. Chest x-ray showed no acute cardiopulmonary disease. Blood tests shows normal CBC, PT/PTT, CMP. Total cholesterol is 165, LDL 102, HDL 39 and triglycerides 122. Patient's last hemoglobin A1c 5.7 on 01/13/2015. Patient has been on aspirin 81 mg daily, Lipitor 40 mg, Shruthi, Effexor XR. Patient denies any history of hypertension, diabetes, never smoked. Patient denies any history of strokes or TIA ever in the past. Patient states that he used to drink wine a lot and would drink half a jug of wine (from 4 L gallon jug) at one time. He states that he would by a case every month. He drank heavily for one year, but then quit alcoholism in February 2019. Telemetry monitoring since admission showing sinus rhythm with sinus bradycardia in 50s and PVCs. No atrial fibrillation. Review of Systems As above in detail. All other review of systems completely unremarkable. Denies any chest pain, shortness of breath, wheezing or cough. Denies abdominal pain, nausea vomiting. Patient does have history of right ankle surgery in the recent past. Also has history of some ureteral clipping. Past Medical History Past Medical History: Asthma, Cancer, GERD/Reflux, Hyperlipidemia, Osteoarthritis (OA), Sleep Apnea/CPAP/BIPAP Additional Past Medical History / Comment(s): 01/10/17 ADMISSION FOR PNEUMONIA. Patient reports that he no longer has DM as of reports from DR. OSMAN. Migraines. USES CPAP. History of Any Multi-Drug Resistant Organisms: None Reported Past Surgical History: Coronary Bypass/CABG, Orthopedic Surgery, Tonsillectomy Additional Past Surgical History / Comment(s): marlyn rotator cuff (rt x 2), rt ankle reconstructions, tera fundoplication., CABG 01/2015, nasal surgery, left knee arthroscopy, marlyn cataracts Past Anesthesia/Blood Transfusion Reactions: Previous Problems w/ Anesthesia Additional Past Anesthesia/Blood Transfusion Reaction / Comment(s): confusion and hallucinations after anesthesia Past Psychological History: Depression Additional Psychological History / Comment(s): . Smoking Status: Never smoker Past Alcohol Use History: None Reported Past Drug Use History: None Reported - Past Family History Mother Family Medical History: Cancer, CVA/TIA Additional Family Medical History / Comment(s): skin and breast cancer Father Family Medical History: Congestive Heart Failure (CHF) Additional Family Medical History / Comment(s): pacemaker/aicd Medications and Allergies Home Medications Medication Instructions Recorded Confirmed Type Aspirin EC [Ecotrin Low Dose] 81 mg PO DAILY 12/05/14 06/04/20 History Lovastatin [Mevacor] 40 mg PO W/SUPPER 12/05/14 06/04/20 History Montelukast Sodium [Singulair] 10 mg PO HS 12/05/14 06/04/20 History Omeprazole [PriLOSEC] 20 mg PO DAILY PRN 12/05/14 06/04/20 History Metoprolol Tartrate 12.5 mg PO DAILY 05/15/15 06/04/20 History Tamsulosin [Flomax] 0.4 mg PO BID 05/15/15 06/04/20 History Beclomethasone Dipropionate [Qvar 1 puff INHALATION RT-BID 06/27/15 06/04/20 History 40 mcg/puff] Fexofenadine HCl [Shruthi Allergy] 180 mg PO DAILY PRN 10/03/16 06/04/20 History Acetaminophen Tab [Tylenol] 500 mg PO Q6H PRN 01/09/17 06/04/20 History Albuterol Nebulized [Ventolin 2.5 mg INHALATION RT-QID PRN 06/04/20 06/04/20 History Nebulized] Albuterol Sulfate [Ventolin HFA] 1 puff INHALATION RT-Q4H PRN 06/04/20 06/04/20 History Docusate [Colace] 100 mg PO DAILY PRN 06/04/20 06/04/20 History Venlafaxine HCl ER [Effexor Xr] 37.5 mg PO DAILY 06/04/20 06/04/20 History Allergies Allergy/AdvReac Type Severity Reaction Status Date / Time Sulfa (Sulfonamide Allergy Severe Itching Verified 06/04/20 15:09 Antibiotics) cheese Allergy Unknown, Verified 06/04/20 15:09 ALLERGY TESTING RESULTS honey Allergy Unknown Verified 06/04/20 15:09 metformin Allergy Diarrhea Verified 06/04/20 15:09 Milk Containing Products Allergy Unknown Verified 06/04/20 15:09 [Dairy] sulfamethoxazole Allergy Diarrhea Verified 06/04/20 15:09 [From Bactrim] trimethoprim [From Bactrim] Allergy Diarrhea Verified 06/04/20 15:09 yeast, dried [yeast] Allergy Unknown Verified 06/04/20 15:09 apples Allergy Unknown Uncoded 06/04/20 13:29 Physical Examination - Vital Signs Vital Signs: Vital Signs Temp Pulse Pulse Resp BP BP Pulse Ox 06/05/20 07:42 97.9 F 64 20 124/78 94 L 06/05/20 03:59 51 L 16 142/67 93 L 06/04/20 23:51 98.1 F 57 L 18 135/72 97 06/04/20 20:00 97.2 F L 55 L 16 123/64 95 06/04/20 15:58 97.6 F 55 L 16 138/67 97 06/04/20 15:02 56 L 16 119/48 98 06/04/20 13:26 97.8 F 61 18 138/75 98 Intake and Output 06/04/20 06/05/20 06/05/20 22:59 06:59 14:59 Intake Total 400 240 Output Total 600 Balance 400 -600 240 Intake: Oral 400 240 Output: Urine 600 Other: Voiding Method Toilet # Voids 2 1 Weight 95.8 kg On examination patient is an elderly male, in no acute distress. Patient is alert and awake fully oriented. He knows that it is May 2020 and that he is in [facility]. Speech and language functions are normal. Attention, concentration fund of knowledge adequate. Cranial exam showed pupils are round and reactive to light, visual felix are full on confrontation, extraocular muscles are intact with no nystagmus. Face is symmetric and tongue protrudes the midline. Palatal elevation and sensation normal, hearing is slightly decreased, shoulder shrug normal. Facial sensation is normal. On muscle strength testing there is no pronator drift and the strength is normal in arms and legs distally and proximally, deep tendon reflexes are 1+ and plantars as down on the right, but upgoing on the left. Sensory to touch is equal with no neglect. No ataxia for [id number] testing, tone and bulk of muscles normal. Gait deferred. On general examination there is no carotid bruit or murmur, peripheral pulses present, abdomen soft nontender, chest is clear. Results - Laboratory Findings CBC and BMP: 06/04/20 14:10 06/04/20 14:10 Abnormal Lab Findings: Abnormal Labs 06/04/20 06/05/20 14:10 07:19 Sodium 136 L Glucose 109 H LDL Cholesterol, Calc 102 H HDL Cholesterol 39 L Assessment and Plan Assessment: * Acute stroke involving the right anterior limb of internal capsule. Patient apparently had transient slurred speech and left sided weakness, which now seems to have resolved. * Evidence of a previous lacunar stroke involving the right basal ganglia, but no prior clinical history of CVA or TIA. * History of alcoholism, quit in February 2019. Plan: * Patient will undergo MRI of the brain to confirm acute stroke. Also MRA of the head to rule out any intracranial atherosclerotic disease/stenosis. * Carotid Doppler rule out carotid stenosis. * 2-D echo with bubble study to rule out PFO. * Fasting a.m. lipid panel, hemoglobin A1c. * Patient has been on aspirin 81 mg daily, compliant with the medication. Due to aspirin failure, we will add Plavix 75 mg daily.
--- NOTE | 2020-06-05 12:55 | ECHOF ---
Referral Reason:Acute CVA MEASUREMENTS -------- HEIGHT: 180.3 cm WEIGHT: 95.7 kg BP: 124/78 RVIDd: 3.0 cm (< 3.3) IVSd: 1.3 cm (0.6 - 1.1) LVIDd: 5.4 cm (3.9 - 5.3) LVPWd: 1.3 cm (0.6 - 1.1) IVSs: 1.7 cm LVIDs: 3.7 cm LVPWs: 1.8 cm LA Diam: 4.3 cm (2.7 - 3.8) LAESV Index (A-L): 30.04 ml/m Ao Diam: 3.8 cm (2.0 - 3.7) AV Cusp: 2.2 cm (1.5 - 2.6) MV EXCURSION: 10.759 mm (> 18.000) MV EF SLOPE: 71 mm/s (70 - 150) EPSS: 1.3 cm MV E Prashant: 0.75 m/s MV DecT: 257 ms MV A Prashant: 0.67 m/s MV E/A Ratio: 1.11 RAP: 5.00 mmHg RVSP: 24.48 mmHg FINDINGS -------- Sinus rhythm. This was a technically adequate study. The left ventricular size is normal. There is mild concentric left ventricular hypertrophy. Overa ll left ventricular systolic function is normal with, an EF between 60 - 65 %. The right ventricle is normal in size. LA is midly dilated 29-33ml/m2. The right atrium is normal in size. Agitated Saline study is negative, no crossing at atrial level or right to left shunt noted. There is mild aortic valve sclerosis. There is mild aortic regurgitation. The mitral valve is normal. Mild mitral regurgitation is present. Mild tricuspid regurgitation present. Right ventricular systolic pressure is normal at < 35 mmHg. Trace/mild (physiologic) pulmonic regurgitation. The aortic root is dilated measuring 3.8cm. Normal inferior vena cava with normal inspiratory collapse consistent with estimated right atrial pre ssure of 5 mmHg. There is no pericardial effusion. CONCLUSIONS -------- 1. The left ventricular size is normal. 2. There is mild concentric left ventricular hypertrophy. 3. Overall left ventricular systolic function is normal with, an EF between 60 - 65 %. 4. LA is midly dilated 29-33ml/m2. 5. Agitated Saline study is negative, no crossing at atrial level or right to left shunt noted. 6. There is mild aortic valve sclerosis. 7. There is mild aortic regurgitation. 8. The mitral valve is normal. 9. Mild mitral regurgitation is present. 10. Mild tricuspid regurgitation present. 11. Trace/mild (physiologic) pulmonic regurgitation. 12. The aortic root is dilated measuring 3.8cm. 13. There is no pericardial effusion. JOB DEVELOPMENT SPECIALIST: Jacque Davis RDCS
[2020-06-05] MEDS: IPRATROPIUM-ALBUTEROL 3 ML NEB INHALATION SCH ×4 (16:18→22:02)
[2020-06-05] MEDS: BUDESONIDE 1 MG/2 ML NEBU INHALATION SCH ×2 (16:19→22:02)
[2020-06-05 17:15] LABS: Hemoglobin A1C 6.2 % (4.0-6.0)
[2020-06-05] MEDS ORDERED: ATORVASTATIN 10 MG TAB PO SCH (17:30)
[2020-06-05] MEDS: ENOXAPARIN 40 MG/0.4 ML SYRINGE SQ SCH (17:31)
[2020-06-05] MEDS: MONTELUKAST 10 MG TAB PO SCH (20:13)
--- NOTE | 2020-06-05 20:31 | P.HPIM ---
History of Present Illness H&P Date: 06/05/20 Chief Complaint: A bit confused History of presenting complaint: This is a pleasant 8-year-old patient of Dr. Jeyson Osman. Patient is Dr. pratt the bedside. Chronic stable medical conditions include GERD, hyperlipidemia, osteoarthritis, sleep apnea, coronary artery disease with a history of bypass. 2 days ago patient going out with some friends and apparently at that place that was significant fumes from an exhaust that it inhaled. He felt himself slightly confused. Subsequently the family had taken him to [place] in [place]. Blood work was done patient is given OxyContin then he was sent home. Patient again was noted by family members to be slightly off." The patient to Dr. Marie's office. She was found to have some decreased dexterity in the left side and some weakness on the left side. Patient was sent into the ER. Computed tomography scan did show" on infarct in the right internal capsule. Denies any fever and chills. No urinary symptoms. Patient now has chronic shortness of breath and wheezing. Does have some inhalers at home. No obvious changes speech or swallowing. No Review of systems: GEN.: Tired EYES: None HEENT: None NECK: None RESPIRATORY: Wheezing short of breath CARDIOVASCULAR: None GASTROINTESTINAL: None GENITOURINARY: None MUSCULOSKELETAL: Joint pains LYMPHATICS: None HEMATOLOGICAL: None PSYCHIATRY: A bit forgetful NEUROLOGICAL: Some weakness on the left side Past medical history to include: Asthma, GERD, hyperlipidemia, osteophyte arthritis, obstructive sleep apnea, uses CPAP, coronary artery disease with BiPAP bilateral rotator cuff injury Ale fundoplication Social history: Patient drinks 4 glasses of wine a day. No smoking. Patient was exposed to quite a bit of fumes in [facility]. Physical examination: VITAL SIGNS: 97.9, 64, 20, 1 24 x 78, 94% room air GENERAL: BMI 29.5, sitting up in a chair, awake. EYES: Pupils equal. Conjunctiva normal. HEENT: External appearance of nose and ears normal, oral cavity grossly normal. NECK: JVD not raised; masses not palpable. HEART: First and second heart sounds are normal; no edema. LUNGS: Respiratory rate increased, decreased breath sounds prolonged expiration and wheezing. ABDOMEN: Soft, nontender, liver spleen not palpable, no masses palpable. PSYCH: Patient is able to answer simple questionsl. NEUROLOGICAL: [Cranial nerves grossly intact; no facial asymmetry, power on the left site for over 5 LYMPHATICS: No lymph nodes palpable in the axilla and neck INVESTIGATIONS, reviewed in the clinical context: White count 8.1 hemoglobin 15.6 platelets 183 potassium 4.6 creatinine 0.86 LDL 102 EKG tracing personally reviewed by me-normal sinus rhythm, heart rate of 56 Computed tomography scan of the brain-new right-sided internal capsule lacunar infarct extending to the caudate nucleus Chest x-ray film personally reviewed by me-prominent interstitium Assessment and plan: -This is a patient was feeling not right for about 2 days. At the PCPs office was found to some left-sided weakness and also some changes speech was reported. Significant improvement. Some subtle weakness still present. Computed tomography scan did confirm stroke in the right internal Serial. Patient placed in aspirin Lipitor Plavix. Physical and occupational therapy consult. Neurology consult .-Acute Asthma Exacerbation, with Prior Exposure to Industrial Dust. Patient Started on Bronchodilators, Inhaled Steroids and Long-Acting Beta Agonist -Depression Not Otherwise Specified Continue with Effexor or -BPH Continue with Flomax -Mild Cognitive Impairment -GERD, We'll Place the Patient on Pepcid -Hyperlipidemia, Continue Lipitor -Primary Osteoarthritis, Uses Tylenol When Necessary -Obstructive Sleep Apnea Uses CPAP Care was discussed at length with the patient and daughter the bedside. Questions were answered. MRI MRA of the brain and carotid Doppler 2-D echo has been ordered Past Medical History Past Medical History: Asthma, Cancer, GERD/Reflux, Hyperlipidemia, Osteoarthritis (OA), Sleep Apnea/CPAP/BIPAP Additional Past Medical History / Comment(s): 01/10/17 ADMISSION FOR PNEUMONIA. Patient reports that he no longer has DM as of reports from DR. OSMAN. Migraines. USES CPAP. History of Any Multi-Drug Resistant Organisms: None Reported Past Surgical History: Coronary Bypass/CABG, Orthopedic Surgery, Tonsillectomy Additional Past Surgical History / Comment(s): marlyn rotator cuff (rt x 2), rt ankle reconstructions, ale fundoplication., CABG 01/2015, nasal surgery, left knee arthroscopy, marlyn cataracts Past Anesthesia/Blood Transfusion Reactions: Previous Problems w/ Anesthesia Additional Past Anesthesia/Blood Transfusion Reaction / Comment(s): confusion and hallucinations after anesthesia Past Psychological History: Depression Additional Psychological History / Comment(s): . Smoking Status: Never smoker Past Alcohol Use History: None Reported Past Drug Use History: None Reported - Past Family History Mother Family Medical History: Cancer, CVA/TIA Additional Family Medical History / Comment(s): skin and breast cancer Father Family Medical History: Congestive Heart Failure (CHF) Additional Family Medical History / Comment(s): pacemaker/aicd Medications and Allergies Home Medications Medication Instructions Recorded Confirmed Type Aspirin EC [Ecotrin Low Dose] 81 mg PO DAILY 12/05/14 06/04/20 History Lovastatin [Mevacor] 40 mg PO W/SUPPER 12/05/14 06/04/20 History Montelukast Sodium [Singulair] 10 mg PO HS 12/05/14 06/04/20 History Omeprazole [PriLOSEC] 20 mg PO DAILY PRN 12/05/14 06/04/20 History Metoprolol Tartrate 12.5 mg PO DAILY 05/15/15 06/04/20 History Tamsulosin [Flomax] 0.4 mg PO BID 05/15/15 06/04/20 History Beclomethasone Dipropionate [Qvar 1 puff INHALATION RT-BID 06/27/15 06/04/20 History 40 mcg/puff] Acetaminophen Tab [Tylenol] 500 mg PO Q6H PRN 01/09/17 06/04/20 History Docusate [Colace] 100 mg PO DAILY PRN 06/04/20 06/04/20 History Venlafaxine HCl ER [Effexor Xr] 37.5 mg PO DAILY 06/04/20 06/04/20 History Cholecalciferol [Vitamin D3 (25 25 mcg PO DAILY 06/05/20 06/05/20 History Mcg = 1000 Iu)] Allergies Allergy/AdvReac Type Severity Reaction Status Date / Time Sulfa (Sulfonamide Allergy Severe Itching Verified 06/04/20 15:09 Antibiotics) cheese Allergy Unknown, Verified 06/04/20 15:09 ALLERGY TESTING RESULTS honey Allergy Unknown Verified 06/04/20 15:09 metformin Allergy Diarrhea Verified 06/04/20 15:09 Milk Containing Products Allergy Unknown Verified 06/04/20 15:09 [Dairy] sulfamethoxazole Allergy Diarrhea Verified 06/04/20 15:09 [From Bactrim] trimethoprim [From Bactrim] Allergy Diarrhea Verified 06/04/20 15:09 yeast, dried [yeast] Allergy Unknown Verified 06/04/20 15:09 apples Allergy Unknown Uncoded 06/04/20 13:29 Physical Exam Vitals: Vital Signs Temp Pulse Pulse Resp BP BP Pulse Ox 06/05/20 07:42 97.9 F 64 20 124/78 94 L 06/05/20 03:59 51 L 16 142/67 93 L 06/04/20 23:51 98.1 F 57 L 18 135/72 97 06/04/20 20:00 97.2 F L 55 L 16 123/64 95 06/04/20 15:58 97.6 F 55 L 16 138/67 97 06/04/20 15:02 56 L 16 119/48 98 06/04/20 13:26 97.8 F 61 18 138/75 98 Intake and Output 06/04/20 06/05/20 06/05/20 22:59 06:59 14:59 Intake Total 400 240 Output Total 600 Balance 400 -600 240 Intake: Oral 400 240 Output: Urine 600 Other: Voiding Method Toilet # Voids 2 1 Weight 95.8 kg Results CBC & Chem 7: 06/04/20 14:10 06/04/20 14:10 Labs: Abnormal Lab Results - Last 24 Hours (Table) 06/04/20 06/05/20 Range/Units 14:10 07:19 Sodium 136 L (137-145) mmol/L Glucose 109 H (74-99) mg/dL LDL Cholesterol, Calc 102 H (0-99) mg/dL HDL Cholesterol 39 L (40-60) mg/dL Thrombosis Risk Factor Assmnt - Choose All That Apply Any of the Below Risk Factors Present?: No Each Risk Factor Represents 3 Points: Age 75 years or older Each Risk Factor Represents 5 Points: Stroke (< 1 month) Thrombosis Risk Factor Assessment Total Risk Factor Score: 8 Thrombosis Risk Factor Assessment Level: High Risk
[2020-06-05] MEDS ORDERED: ATORVASTATIN 40 MG TAB PO SCH (21:00)
--- NOTE | 2020-06-05 22:28 | MR ---
EXAMINATION TYPE: MR brain wo con DATE OF EXAM: 06/05/2020 COMPARISON: CT brain yesterday HISTORY: Acute stroke, left sided weakness of body and face. Multiplanar multiecho imaging of the brain was performed without contrast. There is a 3 x 2 cm area of increased signal on diffusion images involving the right internal capsule anteriorly. This is consistent with acute infarct. There is no midline shift. There is no mass effec t. There is a 10 mm area of rounded increased signal in the left centrum semiovale consistent with ol d infarct on the T2 and FLAIR images. There are multiple areas of white matter increased signal aroun d the lateral ventricles on the T2 and FLAIR images. These are confluent adjacent to the ventricle. There is extensive mucosal thickening in the maxillary frontal and ethmoid and sphenoid sinuses. The brainstem is intact. Cerebellum is intact. There is no midline shift. There is no sign of intracrania l hemorrhage. IMPRESSION: Large acute right internal capsule infarct. Old lacunar infarcts around the lateral ventricles No evidence of cortical infarct. Cerebral atrophy. Pansinusitis.
--- NOTE | 2020-06-05 22:59 | MR ---
EXAMINATION TYPE: MR angio head wo con DATE OF EXAM: 06/05/2020 COMPARISON: None HISTORY: Acute stroke, left sided weakness of body and face. MR angiographic images were obtained of the intracerebral arterial circulation. There are 3-D post pr ocessed images. There is arterial flow in the intracranial internal carotid arteries. There is arterial flow in the v ertebrobasilar artery system. There is arterial flow in the anterior middle and posterior cerebral ar teries. I see no evidence of intracranial aneurysm or neovascularity. There is decreased diameter of the branches of the right middle cerebral artery with significant luminal narrowing and decreased jaya w at the right sylvian fissure. There is no mass effect. IMPRESSION: 50% luminal narrowing of the proximal branches of the right middle cerebral artery at the bifurcation with probable hemodynamic stenosis. This is probably clinically significant in this patient with samara dence of right internal capsule infarct.
[2020-06-05] MEDS: FAMOTIDINE 20 MG TAB PO SCH (23:33)
[2020-06-06] MEDS: BUDESONIDE 1 MG/2 ML NEBU INHALATION SCH (08:12)
[2020-06-06] MEDS: ENOXAPARIN 40 MG/0.4 ML SYRINGE SQ SCH (08:18)
[2020-06-06] MEDS: VENLAFAXINE HCL ER 37.5 MG CAP PO SCH (08:18)
[2020-06-06] MEDS: METOPROLOL TARTRATE 12.5 MG TAB PO SCH (08:19)
[2020-06-06] MEDS: TAMSULOSIN 0.4 MG CAP.ER.24H PO SCH (08:19)
[2020-06-06] MEDS: FAMOTIDINE 20 MG TAB PO SCH (08:19)
[2020-06-06] MEDS: ASPIRIN 81 MG PO SCH (08:19)
[2020-06-06] MEDS: CLOPIDOGREL 75 MG TAB PO SCH (08:19)
[2020-06-06] MEDS: IPRATROPIUM-ALBUTEROL 3 ML NEB INHALATION SCH ×2 (09:01→11:51)
[2020-06-06] MEDS: FLUTICASONE 44 MCG INHALER INHALATION SCH (09:02)
[2020-06-06 11:37] VITALS: BP 143/75; TEMP 98.2
[2020-06-06 11:52] VITALS: RESP 16
[2020-06-06 12:09] VITALS: PULSE 56
--- NOTE | 2020-06-06 12:47 | P.PN ---
Subjective Progress Note Date: 06/06/20 Patient was seen for a follow-up. Since last seen, patient denies any changes in his condition. Denies headache problem with the vision. No new focal symptoms. Telemetry monitoring showing sinus rhythm with sinus bradycardia in the 50s. Objective - Vital Signs Vital signs: Vital Signs Temp 98.2 F 06/06/20 11:35 Pulse 56 L 06/06/20 12:05 Resp 16 06/06/20 12:05 BP 143/75 06/06/20 11:35 Pulse Ox 97 06/06/20 11:35 Intake & Output 06/05/20 06/06/20 06/06/20 18:59 06:59 18:59 Intake Total 720 540 620 Balance 720 540 620 Weight 96.9 kg Intake: IV 10 Invasive Line 1 10 Oral 720 540 610 Other: # Voids 3 4 - Exam Patient's mental status, speech and language functions are normal. Patient can name and repeat very well. Patient is fully oriented, knows it is May 2020. Speech and language functions are normal. No aphasia. Cranial nerves are normal. Visual felix are full, extraocular muscles intact, face is symmetric and tongue protrudes the midline. On muscle strength testing patient has left pronation but no drift. The strength is normal in the arms and legs except hip flexion which is 5-on the left. No ataxia for [id number] testing. Sensory to touch is equal with no neglect on double simultaneous polysomnography technician. Tone and bulk of muscles normal. - Labs CBC & Chem 7: 06/04/20 14:10 06/04/20 14:10 Labs: Abnormal Lab Results - Last 24 Hours (Table) 06/05/20 Range/Units 07:19 Hemoglobin A1c 6.2 H (4.0-6.0) % Assessment and Plan Assessment: * Acute stroke involving the right anterior limb of internal capsule. Patient apparently had transient slurred speech and left sided weakness, which now seems to have resolved. * Evidence of a previous lacunar stroke involving the right basal ganglia, but no prior clinical history of CVA or TIA. * History of alcoholism, quit in February 2019. * Prediabetes with A1c 6.2 * Hyperlipidemia Plan: * MRI of the brain revealed large 3 x 2 cm area of acute right internal capsular infarct. Old lacunar infarct around the lateral ventricles. No evidence of cortical infarct. Cerebral atrophy. * MRA of the brain revealed 50% luminal narrowing of the proximal branches of the right middle cerebral artery at the bifurcation with probable hemodynamic stenosis. This is probably clinically significant in this patient with evidence of right internal capsular infarct. * Carotid Doppler rule out carotid stenosis. * 2-D echo with bubble study revealed normal left-ventricular size. Mild concentric LVH, EF is 60-65%. Left atrium is mildly dilated. Agitated saline study is negative, no crossing at atrial level or [id number] shunt. No evidence of PFO. No significant valvular abnormalities. * Fasting a.m. lipid panel revealed total cholesterol 165, LDL 102, triglycerides 122 and HDL 39. Continue high-dose statins. * Hemoglobin A1c 6.2. Recommended diet tree modification. Healthy lifestyles. * Continue dual antiplatelet medications including aspirin 81 mg and Plavix 75 mg daily. Recommend continuing dual antiplatelet medications indefinitely because of significant intracranial atherosclerotic disease, and risk of recurrent infarcts. * Telemetry monitoring showing sinus rhythm with sinus bradycardia, no atrial fibrillation. * Blood pressure is well-controlled 143/75. * Neurologically clear. * Follow up with neurologist locally in 2-4 weeks.
[2020-06-06] MEDS ORDERED: ATORVASTATIN 80 MG TAB PO SCH (21:00)
== END 2020-06-06 16:25 | disposition home or self-care (01) | DRG 65 ==
LOC: EC 13:23 → 3SCARD 14:41
PROVIDERS: ADMIT Hospitalist; ATTEND Hospitalist
DX: I63.9 Cerebral infarction, unspecified (principal); G81.94 Hemiplegia, unspecified affecting left nondominant side; J45.901 Unspecified asthma with (acute) exacerbation; K21.9 Gastro-esophageal reflux disease without esophagitis; N40.0 Benign prostatic hyperplasia without lower urinary tract symptoms; R73.03 Prediabetes; G47.33 Obstructive sleep apnea (adult) (pediatric); G31.84 Mild cognitive impairment of uncertain or unknown etiology; F10.21 Alcohol dependence, in remission; E78.5 Hyperlipidemia, unspecified; F32.9 Major depressive disorder, single episode, unspecified; I25.10 Atherosclerotic heart disease of native coronary artery without angina pectoris; I44.0 Atrioventricular block, first degree; M19.91 Primary osteoarthritis, unspecified site; Z95.1 Presence of aortocoronary bypass graft; Z86.73 Personal history of transient ischemic attack (TIA), and cerebral infarction without residual deficits; Z82.49 Family history of ischemic heart disease and other diseases of the circulatory system; Z80.3 Family history of malignant neoplasm of breast; Z79.899 Other long term (current) drug therapy; Z79.82 Long term (current) use of aspirin
CPT/HCPCS: 36415; 70450; 70544; 70551; 71046; 80053; 80061; 83036; 84484; 85025; 85610; 85730; 93005; 93306; 93880; 94640; 94760; 96360; 99285

== ENCOUNTER 2020-09-18 12:15 | Emergency (ER) | payer MEDICARE, OTHER ==
[2020-09-18 12:27] VITALS: RESP 16; TEMP 98.9
--- NOTE | 2020-09-18 12:53 | ED ---
General Adult HPI - General Chief complaint: Dizziness Stated complaint: Bradycardia Time Seen by Provider: 09/18/20 12:19 Source: EMS Mode of arrival: EMS Limitations: no limitations - History of Present Illness Initial comments: Dictation was produced using [employer] dictation software. please excuse any grammatical, word or spelling errors. Chief Complaint: 80-year-old male presents to the emergency department for bradycardia History of Present Illness: Is an 80-year-old male has past medical history of stroke and coronary artery bypass. He presents to the emergency department after having bradycardic episodes during physical therapy. He was having physical therapy when he started to feel a little faint. Physical therapist put on a finger pulse oximeter and noted that his heart rate was 21. EMS was called patient is brought to the emergency department. EMS reports the patient sinus bradycardia with first-degree AV block. Patient evaluated at bedside states he feels fine. Family member at bedside reports that he does take metoprolol. Patient states during physical therapy had a small episode of chest pressure. He denies any chest symptoms at this time. No shortness of breath. EMS reports that patient had non-perfusing PVC after normal QRS complex. The ROS documented in this emergency department record has been reviewed and confirmed by me. Those systems with pertinent positive or negative responses have been documented in the HPI. All other systems are other negative and/or noncontributory. PHYSICAL EXAM: General Impression: Alert and oriented x3, not in acute distress HEENT: Normocephalic atraumatic, extra-ocular movements intact, pupils equal and reactive to light bilaterally, mucous membranes moist. Cardiovascular: Heart regular rate and rhythm Chest: Able to complete full sentences, no retractions, no tachypnea Abdomen: abdomen soft, non-tender, non-distended, no organomegaly Musculoskeletal: Pulses present and equal in all extremities, no peripheral edema Motor: no focal deficits noted Neurological: CN II-XII grossly intact, no focal motor or sensory deficits noted Skin: Intact with no visualized rashes Psych: Normal affect and mood ED course: 80 Old male presents to the emergency department for bradycardia. All signs upon arrival shows heart rate of 54, rest of vital signs within acceptable limits. Patient's well-appearing at bedside. EKG shows sinus bradycardia. No high degree block. Laboratory evaluation obtained. CBC, metabolic panel troponins within acceptab le limits. Patient was monitored in the emergency department for just over 2 hours. He is in stable medical condition. Daughter at bedside reports that patient usually has baseline bradycardia. Patient's been fine for about being in the emergency department is reevaluated at 2:20 PM states that he feels fine and is felt fine the whole time is an emergency room. She had decision was made. Patient agreeable for discharge with as soon as possible follow-up with his parachute line tier or primary care doctor. Strict return precautions were discussed. Patient's daughter is very reliable and is in the medical field. They do not have any social issues and can return to the emergency department sh ould any issues arise. EKG interpretation: Ventricular rate 49, sinus bradycardia, first-degree A-V block,. Interval tonight 6, QRS 12, QTC 370. No NE prolongation, no QTC prolongation, no ST or T-wave changes noted. EKG compared to 06/04/2020 showing no changes. Overall, this EKG is unremarkable - Related Data Home Medications Medication Instructions Recorded Confirmed Aspirin EC [Ecotrin Low Dose] 81 mg PO DAILY 12/05/14 09/18/20 Montelukast Sodium [Singulair] 10 mg PO HS 12/05/14 09/18/20 Tamsulosin [Flomax] 0.4 mg PO BID 05/15/15 09/18/20 Acetaminophen Tab [Tylenol] 500 mg PO Q6H PRN 01/09/17 09/18/20 Cholecalciferol [Vitamin D3 (25 25 mcg PO DAILY 06/05/20 09/18/20 Mcg = 1000 Iu)] Fluticasone/Vilanterol [Breo 1 puff INHALATION RT-DAILY 09/18/20 09/18/20 Ellipta 100-25 Mcg Inhaler] Sennosides-Docusate Sodium 1 tab PO DAILY PRN 09/18/20 09/18/20 [Senokot-S] Venlafaxine HCl ER [Effexor Xr] 75 mg PO DAILY 09/18/20 09/18/20 Previous Rx's Medication Instructions Recorded Atorvastatin [Lipitor] 80 mg PO HS #30 tab 06/06/20 Clopidogrel [Plavix] 75 mg PO DAILY #30 tab 06/06/20 Famotidine [Pepcid] 20 mg PO BID #60 tab 06/06/20 Allergies Allergy/AdvReac Type Severity Reaction Status Date / Time Sulfa (Sulfonamide Allergy Severe Itching Verified 09/18/20 13:42 Antibiotics) cheese Allergy Unknown, Verified 09/18/20 13:42 ALLERGY TESTING RESULTS honey Allergy Unknown Verified 09/18/20 13:42 metformin Allergy Diarrhea Verified 09/18/20 13:42 Milk Containing Products Allergy Unknown Verified 09/18/20 13:42 [Dairy] sulfamethoxazole Allergy Diarrhea Verified 09/18/20 13:42 [From Bactrim] trimethoprim [From Bactrim] Allergy Diarrhea Verified 09/18/20 13:42 yeast, dried [yeast] Allergy Unknown Verified 09/18/20 13:42 apples Allergy Allergy Uncoded 09/18/20 13:42 Testing Review of Systems ROS Statement: Those systems with pertinent positive or pertinent negative responses have been documented in the HPI. ROS Other: All systems not noted in ROS Statement are negative. Past Medical History Past Medical History: Asthma, Cancer, GERD/Reflux, Hyperlipidemia, Osteoarthritis (OA), Sleep Apnea/CPAP/BIPAP Additional Past Medical History / Comment(s): 01/10/17 ADMISSION FOR PNEUMONIA. Patient reports that he no longer has DM as of reports from DR. OSMAN. Migraines. USES CPAP. History of Any Multi-Drug Resistant Organisms: None Reported Past Surgical History: Coronary Bypass/CABG, Orthopedic Surgery, Tonsillectomy Additional Past Surgical History / Comment(s): marlyn rotator cuff (rt x 2), rt ankle reconstructions, tera fundoplication., CABG 01/2015, nasal surgery, left knee arthroscopy, marlyn cataracts Past Anesthesia/Blood Transfusion Reactions: Previous Problems w/ Anesthesia Additional Past Anesthesia/Blood Transfusion Reaction / Comment(s): confusion and hallucinations after anesthesia Past Psychological History: Depression Smoking Status: Never smoker Past Alcohol Use History: None Reported Past Drug Use History: None Reported - Past Family History Mother Family Medical History: Cancer, CVA/TIA Additional Family Medical History / Comment(s): skin and breast cancer Father Family Medical History: Congestive Heart Failure (CHF) Additional Family Medical History / Comment(s): pacemaker/aicd General Exam Limitations: no limitations Course Vital Signs 09/18/20 12:20 Temperature 98.9 F Pulse Rate 54 L Respiratory 16 Rate Blood Pressure 133/60 O2 Sat by Pulse 97 Oximetry Medical Decision Making - Lab Data Result diagrams: 09/18/20 12:53 09/18/20 12:53 Lab Results 09/18/20 09/18/20 09/18/20 Range/Units 12:53 12:53 12:53 WBC 6.6 (3.8-10.6) k/uL RBC 4.76 (4.30-5.90) m/uL Hgb 14.5 (13.0-17.5) gm/dL Hct 43.2 (39.0-53.0) % MCV 90.8 (80.0-100.0) fL MCH 30.6 (25.0-35.0) pg MCHC 33.7 (31.0-37.0) g/dL RDW 13.6 (11.5-15.5) % Plt Count 203 (150-450) k/uL MPV 7.0 Neutrophils % 63 % Lymphocytes % 19 % Monocytes % 10 % Eosinophils % 3 % Basophils % 1 % Neutrophils # 4.2 (1.3-7.7) k/uL Lymphocytes # 1.3 (1.0-4.8) k/uL Monocytes # 0.7 (0-1.0) k/uL Eosinophils # 0.2 (0-0.7) k/uL Basophils # 0.1 (0-0.2) k/uL Sodium 137 (137-145) mmol/L Potassium 4.4 (3.5-5.1) mmol/L Chloride 109 H (98-107) mmol/L Carbon Dioxide 19 L (22-30) mmol/L Anion Gap 9 mmol/L BUN 12 (9-20) mg/dL Creatinine 0.80 (0.66-1.25) mg/dL Est GFR (CKD-EPI)AfAm >90 (>60 ml/min/1.73 sqM) Est GFR (CKD-EPI)NonAf 85 (>60 ml/min/1.73 sqM) Glucose 114 H (74-99) mg/dL Calcium 9.2 (8.4-10.2) mg/dL Magnesium 2.0 (1.6-2.3) mg/dL Troponin I <0.012 (0.000-0.034) ng/mL Disposition Clinical Impression: Bradycardia Disposition: HOME SELF-CARE Condition: Fair Instructions (If sedation given, give patient instructions): Bradycardia (ED) Additional Instructions: Follow-up with parachute line tier or primary care doctor as soon as possible Is patient prescribed a controlled substance at d/c from ED?: No Referrals: Torie Ham MD [Primary Care Provider] - 1-2 days
[2020-09-18 13:09] LABS: Basophils # (A) 0.1 k/uL (0-0.2); Basophils % (A) 1 %; Eosinophils # (A) 0.2 k/uL (0-0.7); Eosinophils % (A) 3 %; HCT 43.2 % (39.0-53.0); HGB 14.5 gm/dL (13.0-17.5); Lymphocytes # (A) 1.3 k/uL (1.0-4.8); Lymphocytes % (A) 19 %; MCH 30.6 pg (25.0-35.0); MCHC 33.7 g/dL (31.0-37.0); MCV 90.8 fL (80.0-100.0); Monocytes # (A) 0.7 k/uL (0-1.0); Monocytes % (A) 10 %; Neutrophils # (A) 4.2 k/uL (1.3-7.7); Neutrophils % (A) 63 %; Platelet Count 203 k/uL (150-450); RBC 4.76 m/uL (4.30-5.90); RDW 13.6 % (11.5-15.5); WBC 6.6 k/uL (3.8-10.6)
[2020-09-18 13:33] LABS: African American GFR (CKD) >90 (>60 ml/min/1.73 sqM); Anion Gap 9 mmol/L; Blood Urea Nitrogen 12 mg/dL (9-20); Calcium 9.2 mg/dL (8.4-10.2); Carbon Dioxide 19 mmol/L (22-30); Chloride 109 mmol/L (98-107); Glucose 114 mg/dL (74-99); Non-African American GFR(CKD) 85 (>60 ml/min/1.73 sqM); Sodium 137 mmol/L (137-145)
[2020-09-18 13:40] LABS: Potassium 4.4 mmol/L (3.5-5.1)
[2020-09-18 14:53] VITALS: BP 130/66; PULSE 57
== END 2020-09-18 14:53 | disposition home or self-care (01) ==
LOC: EC 12:15
DX: R00.1 Bradycardia, unspecified (principal); E78.5 Hyperlipidemia, unspecified; Z88.2 Allergy status to sulfonamides; J45.909 Unspecified asthma, uncomplicated; Z91.011 Allergy to milk products; Z91.030 Bee allergy status; Z88.8 Allergy status to other drugs, medicaments and biological substances; Z91.018 Allergy to other foods; Z95.1 Presence of aortocoronary bypass graft; Z79.82 Long term (current) use of aspirin; M19.90 Unspecified osteoarthritis, unspecified site; Z86.73 Personal history of transient ischemic attack (TIA), and cerebral infarction without residual deficits
CPT/HCPCS: 36415; 80048; 82330; 83735; 84484; 85025; 93005; 99285

== ENCOUNTER 2021-11-24 01:57 | Observation (INO) | payer MEDICARE, OTHER ==
[2021-11-24] MEDS ORDERED: MORPHINE SULFATE 4 MG/ML SYRINGE IV PRN (02:12)
[2021-11-24] MEDS ORDERED: NALOXONE 0.4 MG/ML 1 ML VIAL IV PRN (02:12)
--- NOTE | 2021-11-24 02:15 | ED ---
General Adult HPI - General Chief complaint: Neuro Symptoms/Deficit Stated complaint: migrane Time Seen by Provider: 11/24/21 02:12 Source: patient, family Mode of arrival: ambulatory Limitations: no limitations - Related Data Home Medications Medication Instructions Recorded Confirmed Aspirin EC [Ecotrin Low Dose] 81 mg PO DAILY 12/05/14 09/18/20 Montelukast Sodium [Singulair] 10 mg PO HS 12/05/14 09/18/20 Tamsulosin [Flomax] 0.4 mg PO BID 05/15/15 09/18/20 Acetaminophen Tab [Tylenol] 500 mg PO Q6H PRN 01/09/17 09/18/20 Cholecalciferol [Vitamin D3 (25 25 mcg PO DAILY 06/05/20 09/18/20 Mcg = 1000 Iu)] Fluticasone/Vilanterol [Breo 1 puff INHALATION RT-DAILY 09/18/20 09/18/20 Ellipta 100-25 Mcg Inhaler] Sennosides-Docusate Sodium 1 tab PO DAILY PRN 09/18/20 09/18/20 [Senokot-S] Venlafaxine HCl ER [Effexor Xr] 75 mg PO DAILY 09/18/20 09/18/20 Previous Rx's Medication Instructions Recorded Atorvastatin [Lipitor] 80 mg PO HS #30 tab 06/06/20 Clopidogrel [Plavix] 75 mg PO DAILY #30 tab 06/06/20 Famotidine [Pepcid] 20 mg PO BID #60 tab 06/06/20 Allergies Allergy/AdvReac Type Severity Reaction Status Date / Time Sulfa (Sulfonamide Allergy Severe Itching Verified 11/24/21 02:04 Antibiotics) cheese Allergy Unknown, Verified 11/24/21 02:04 ALLERGY TESTING RESULTS honey Allergy Unknown Verified 11/24/21 02:04 metformin Allergy Diarrhea Verified 11/24/21 02:04 Milk Containing Products Allergy Unknown Verified 11/24/21 02:04 [Dairy] sulfamethoxazole Allergy Diarrhea Verified 11/24/21 02:04 [From Bactrim] trimethoprim [From Bactrim] Allergy Diarrhea Verified 11/24/21 02:04 yeast, dried [yeast] Allergy Unknown Verified 11/24/21 02:04 apples Allergy Allergy Uncoded 11/24/21 02:04 Testing Review of Systems ROS Statement: Those systems with pertinent positive or pertinent negative responses have been documented in the HPI. ROS Other: All systems not noted in ROS Statement are negative. Past Medical History Past Medical History: Asthma, Cancer, GERD/Reflux, Hyperlipidemia, Osteoarthritis (OA), Sleep Apnea/CPAP/BIPAP Additional Past Medical History / Comment(s): 01/10/17 ADMISSION FOR PNEUMONIA. Patient reports that he no longer has DM as of reports from DR. OSMAN. Migraines. USES CPAP. History of Any Multi-Drug Resistant Organisms: None Reported Past Surgical History: Coronary Bypass/CABG, Orthopedic Surgery, Tonsillectomy Additional Past Surgical History / Comment(s): marlyn rotator cuff (rt x 2), rt ankle reconstructions, tera fundoplication., CABG 01/2015, nasal surgery, left knee arthroscopy, marlyn cataracts Past Anesthesia/Blood Transfusion Reactions: Previous Problems w/ Anesthesia Additional Past Anesthesia/Blood Transfusion Reaction / Comment(s): confusion and hallucinations after anesthesia Past Psychological History: Depression Smoking Status: Never smoker Past Alcohol Use History: None Reported Past Drug Use History: None Reported - Past Family History Mother Family Medical History: Cancer, CVA/TIA Additional Family Medical History / Comment(s): skin and breast cancer Father Family Medical History: Congestive Heart Failure (CHF) Additional Family Medical History / Comment(s): pacemaker/aicd General Exam Limitations: no limitations Course Vital Signs 11/24/21 01:58 Temperature 98.1 F Pulse Rate 66 Respiratory 18 Rate Blood Pressure 152/72 O2 Sat by Pulse 95 Oximetry Disposition Clinical Impression: Transient cerebral ischemia Disposition: ADMITTED IP TO THIS HOSP Condition: Fair Is patient prescribed a controlled substance at d/c from ED?: No Referrals: None,Stated [Primary Care Provider] - 1-2 days
[2021-11-24] MEDS: SODIUM CHLORIDE 0.9% 1,000 ML IV SCH ×3 (02:31→16:28)
--- NOTE | 2021-11-24 05:38 | P.HPIM ---
History of Present Illness H&P Date: 11/24/21 The patient is an 81-year-old male with a PMH of comfort migraine, hypertension, hyperlipidemia, and asthma who presented to the emergency room for confusion. History supplemented by the daughter at the bedside who notes that the patient was visiting up near [place] when he developed a severe headache accompanied by numbness of bilateral hands, face, and confusion. The patient and daughter report that somewhat similar to his long-standing history of migraines which are usually accompanied with numbness involving the hands and the face. She reports however that confusion is a new finding for him, which prompted them to go to the emergency room. The patient was initially seen at facility close to [place] and subsequently left from the [facility] [facility] and presented for [facility]. He reported that his symptoms resolved within 2 hours and he essentially feels at baseline at time of interview, which is also confirmed by the daughter at the bedside. The patient had some paperwork from the other facility which I documented that the CT angiogram was performed and was unremarkable and at the case was also discussed with the stroke team and that the patient was not deemed to be a candidate for TPA. Review of systems: Pertinent positives and negatives as discussed in HPI, a complete review of systems was performed and all other systems are negative. Physical examination: General: non toxic, no distress, appears at stated age, overweight Derm: no unusual rashes/lesions, warm Head: atraumatic, normocephalic, symmetric Eyes: EOMI, no lid lag, anicteric sclera, pupils equal round reactive to light ENT: Nose and ears atraumatic Neck: No cervical lymphadenopathy, trachea midline, supple Mouth: no lip lesion, mucus membranes moist Cardiovascular: S1S2 reg, no murmur, positive dorsalis pedis pulse bilateral, no edema Lungs: CTA bilateral, no rhonchi, no rales, no accessory muscle use Abdominal: soft, nontender to palpation, no guarding Ext: muscle strength 5 out of 5 in all 4 extremities grossly, no gross muscle atrophy, no contractures, Neuro: CN II-XI grossly intact, no gross focal neuro deficits Psych: Alert, oriented, appropriate affect Assessment/plan Confusion with paresthesias, TIA versus complex migraine -Neurology consulted -Continue with aspirin, statin -Fall precautions Chronic conditions: Hypertension, hyperlipidemia, asthma -Continue with home meds DVT prophylaxis -Heparin subcu The patient is admitted with an anticipated less than 2 midnight stay for evaluation of TIA CODE STATUS: Full Code Discussed with: Patient Anticipated discharge date: in am Anticipated discharge place: Home Past Medical History Past Medical History: Asthma, Cancer, GERD/Reflux, Hyperlipidemia, Osteoarthritis (OA), Sleep Apnea/CPAP/BIPAP Additional Past Medical History / Comment(s): 01/10/17 ADMISSION FOR PNEUMONIA. Patient reports that he no longer has DM as of reports from DR. OSMAN. Migraines. USES CPAP. History of Any Multi-Drug Resistant Organisms: None Reported Past Surgical History: Coronary Bypass/CABG, Orthopedic Surgery, Tonsillectomy Additional Past Surgical History / Comment(s): marlyn rotator cuff (rt x 2), rt ankle reconstructions, tera fundoplication., CABG 01/2015, nasal surgery, left knee arthroscopy, marlyn cataracts Past Anesthesia/Blood Transfusion Reactions: Previous Problems w/ Anesthesia Additional Past Anesthesia/Blood Transfusion Reaction / Comment(s): confusion and hallucinations after anesthesia Past Psychological History: Depression Smoking Status: Never smoker Past Alcohol Use History: None Reported Past Drug Use History: None Reported - Past Family History Mother Family Medical History: Cancer, CVA/TIA Additional Family Medical History / Comment(s): skin and breast cancer Father Family Medical History: Congestive Heart Failure (CHF) Additional Family Medical History / Comment(s): pacemaker/aicd Medications and Allergies Home Medications Medication Instructions Recorded Confirmed Type Aspirin EC [Ecotrin Low Dose] 81 mg PO DAILY 12/05/14 09/18/20 History Montelukast Sodium [Singulair] 10 mg PO HS 12/05/14 09/18/20 History Tamsulosin [Flomax] 0.4 mg PO BID 05/15/15 09/18/20 History Acetaminophen Tab [Tylenol] 500 mg PO Q6H PRN 01/09/17 09/18/20 History Cholecalciferol [Vitamin D3 (25 25 mcg PO DAILY 06/05/20 09/18/20 History Mcg = 1000 Iu)] Atorvastatin [Lipitor] 80 mg PO HS #30 tab 06/06/20 09/18/20 Rx Clopidogrel [Plavix] 75 mg PO DAILY #30 tab 06/06/20 09/18/20 Rx Famotidine [Pepcid] 20 mg PO BID #60 tab 06/06/20 09/18/20 Rx Fluticasone/Vilanterol [Breo 1 puff INHALATION RT-DAILY 09/18/20 09/18/20 H istory Ellipta 100-25 Mcg Inhaler] Sennosides-Docusate Sodium 1 tab PO DAILY PRN 09/18/20 09/18/20 History [Senokot-S] Venlafaxine HCl ER [Effexor Xr] 75 mg PO DAILY 09/18/20 09/18/20 History Allergies Allergy/AdvReac Type Severity Reaction Status Date / Time Sulfa (Sulfonamide Allergy Severe Itching Verified 11/24/21 02:04 Antibiotics) cheese Allergy Unknown, Verified 11/24/21 02:04 ALLERGY TESTING RESULTS honey Allergy Unknown Verified 11/24/21 02:04 metformin Allergy Diarrhea Verified 11/24/21 02:04 Milk Containing Products Allergy Unknown Verified 11/24/21 02:04 [Dairy] sulfamethoxazole Allergy Diarrhea Verified 11/24/21 02:04 [From Bactrim] trimethoprim [From Bactrim] Allergy Diarrhea Verified 11/24/21 02:04 yeast, dried [yeast] Allergy Unknown Verified 11/24/21 02:04 apples Allergy Allergy Uncoded 11/24/21 02:04 Testing Physical Exam Vitals: Vital Signs Temp Pulse Resp BP Pulse Ox 11/24/21 01:58 98.1 F 66 18 152/72 95 Intake and Output 11/23/21 11/23/21 11/24/21 14:59 22:59 06:59 Other: Weight 95.254 kg
[2021-11-24] MEDS: ATORVASTATIN 80 MG TAB PO SCH ×2 (06:36→21:05)
[2021-11-24] MEDS: ASPIRIN 325 MG TAB PO SCH ×2 (06:36→08:28)
[2021-11-24] MEDS: HEPARIN SODIUM,PORCINE/PF 5,000 UNIT/0.5 ML SYRINGE SQ SCH ×2 (08:29→15:52)
--- NOTE | 2021-11-24 14:17 | MR ---
EXAMINATION TYPE: MR brain wo con DATE OF EXAM: 11/24/2021 COMPARISON: October 03, 2020 HISTORY: 81-year-old male TIA, migraines, slurred speech, visual disturbance, hx stroke. TECHNIQUE: Multiplanar, multisequence images of the brain and brainstem were acquired without IV con trast. Diffusion weighted imaging is performed. FINDINGS: No evidence for acute infarction, hemorrhage, mass, mass effect, midline shift, herniation, effacemen t of basal cisterns, or extra-axial fluid collection. There is moderate supratentorial volume loss. The previous infarct at the right conn radiata and right basal ganglia has matured into an area of cystic encephalomalacia. T2/FLAIR weighted sequences show a additional confluence moderate ventricular white matter change com patible with additional chronic ischemic change from corresponding bright signal within the right duglas e of the brainstem along the descending tracts. Major intracranial flow voids are intact. Midline structures demonstrate normal morphology. The craniocervical junction is normal. Moderate mucosal thickening ethmoid air cells, sphenoid sinuses, and maxillary sinuses. Some proximal the layering fluid is present in the right maxillary sinus. Some partial opacification of left masto id air cells. Globes appear intact. IMPRESSION: 1. Moderate atrophy and moderate burden of chronic small vessel ischemic disease. 2. The previous right-sided infarct has matured into cystic encephalomalacia involving the right cece na radiata and right basal ganglia. No acute intracranial abnormality seen. 3. Moderate to severe chronic pansinusitis. Correlate for superimposed acute right maxillary sinusiti s.
--- NOTE | 2021-11-24 14:37 | P.CNNES ---
History of Present Illness Consult date: 11/24/21 Reason for Consult: TIA History of Present Illness: The patient is an 81-year-old male who is seen in neurologic consultation on November 24, 2021, via telemedicine. The patient's daughter is present at the bedside at the time of the evaluation. The patient's son is present via the telephone. The patient and his family report that he had sudden onset of right hand numbness. The patient has a history of migraine headaches with similar symptoms. Patient states that his right hand became numb and then traveled to his left hand. The patient then began to have a quite severe slurring of his speech and became confused. The patient's daughter also reports that the patient's affect was flat. According to the son and the patient, the patient's symptoms were much more intense than his typical migraine. The patient reports that he has not had a severe migraine in many years. Son reports that the patient's symptoms were "more strokelike". Patient had a marked difficulty can communicating. He had slurred speech confusion and word finding difficulties. These symptoms occurred while the patient and family were in the [facility]. Patient went to a hospital in the [facility]. CT scan of the brain was performed as well as a CT angiogram of the head and neck. Both of these tests were negative for acute findings. The daughter reports that they were advised to be transferred to the hospital in [facility] for further workup. Apparently the patient left the hospital AMA, to come down to [facility] the patient's symptoms began at about 4 PM yesterday afternoon and did not resolve until about 8 PM. Apparently during the day, patient had done a lot of walking and was thought to be dehydrated as well. In the emergency department in the [facility], the patient was given aspirin 81 mg and 500 mL's of fluid. The patient reports that today, he feels back to his baseline. He does report a history of a previous stroke which causes some a mild left-sided weakness and difficulty with balance. According to the patient's daughter, patient also has some evidence of "sundowning". The patient continues to live on his own and take care of all of his own needs. He does not drive. Review of Systems Negative except for that noted in history of present illness Past Medical History Past Medical History: Asthma, Cancer, GERD/Reflux, Hyperlipidemia, Osteoarthritis (OA), Sleep Apnea/CPAP/BIPAP Additional Past Medical History / Comment(s): 01/10/17 ADMISSION FOR PNEUMONIA. Patient reports that he no longer has DM as of reports from DR. OSMAN. Migraines. USES CPAP. History of Any Multi-Drug Resistant Organisms: None Reported Past Surgical History: Coronary Bypass/CABG, Orthopedic Surgery, Tonsillectomy Additional Past Surgical History / Comment(s): marlyn rotator cuff (rt x 2), rt ankle reconstructions, tera fundoplication., CABG 01/2015, nasal surgery, left knee arthroscopy, marlyn cataracts Past Anesthesia/Blood Transfusion Reactions: Previous Problems w/ Anesthesia Additional Past Anesthesia/Blood Transfusion Reaction / Comment(s): confusion and hallucinations after anesthesia Past Psychological History: Depression Smoking Status: Never smoker Past Alcohol Use History: None Reported Past Drug Use History: None Reported - Past Family History Mother Family Medical History: Cancer, CVA/TIA Additional Family Medical History / Comment(s): skin and breast cancer Father Family Medical History: Congestive Heart Failure (CHF) Additional Family Medical History / Comment(s): pacemaker/aicd Medications and Allergies Home Medications Medication Instructions Recorded Confirmed Type Aspirin EC [Ecotrin Low Dose] 81 mg PO DAILY 12/05/14 11/24/21 History Montelukast Sodium [Singulair] 10 mg PO HS 12/05/14 11/24/21 History Tamsulosin [Flomax] 0.4 mg PO BID 05/15/15 11/24/21 History Acetaminophen Tab [Tylenol] 500 mg PO Q6H PRN 01/09/17 11/24/21 History Cholecalciferol [Vitamin D3 (25 25 mcg PO DAILY 06/05/20 11/24/21 History Mcg = 1000 Iu)] Atorvastatin [Lipitor] 80 mg PO HS #30 tab 06/06/20 11/24/21 Rx Clopidogrel [Plavix] 75 mg PO DAILY #30 tab 06/06/20 11/24/21 Rx Famotidine [Pepcid] 20 mg PO BID #60 tab 06/06/20 11/24/21 Rx Fluticasone/Vilanterol [Breo 1 puff INHALATION RT-DAILY 09/18/20 11/24/21 History Ellipta 100-25 Mcg Inhaler] Venlafaxine HCl ER [Effexor Xr] 75 mg PO DAILY 09/18/20 11/24/21 History Finasteride [Proscar] 5 mg PO DAILY 11/24/21 11/24/21 History Allergies Allergy/AdvReac Type Severity Reaction Status Date / Time Sulfa (Sulfonamide Allergy Severe Itching Verified 11/24/21 11:26 Antibiotics) cheese Allergy Unknown, Verified 11/24/21 11:26 ALLERGY TESTING RESULTS honey Allergy Unknown Verified 11/24/21 11:26 metformin Allergy Diarrhea Verified 11/24/21 11:26 Milk Containing Products Allergy Unknown Verified 11/24/21 11:26 [Dairy] sulfamethoxazole Allergy Diarrhea Verified 11/24/21 11:26 [From Bactrim] trimethoprim [From Bactrim] Allergy Diarrhea Verified 11/24/21 11:26 yeast, dried [yeast] Allergy Unknown Verified 11/24/21 11:26 apples Allergy Allergy Uncoded 11/24/21 02:04 Testing Physical Examination - Vital Signs Vital Signs: Vital Signs Temp Pulse Resp BP Pulse Ox 11/24/21 08:00 69 18 138/74 11/24/21 07:00 53 L 18 140/73 11/24/21 06:39 97.7 F 63 18 140/73 93 L 11/24/21 06:00 64 18 124/73 11/24/21 02:36 59 L 22 11/24/21 01:58 98.1 F 66 18 152/72 95 Intake and Output 11/23/21 11/24/21 11/24/21 22:59 06:59 14:59 Other: Weight 95.254 kg Gen.: The patient is reclining in the bed. He is well-nourished, well-developed and in no acute distress HEENT: Head is atraumatic, normocephalic. Fundus not visualized. There is no scleral icterus. Mucous membranes are moist. Neck: Supple, without carotid bruits Heart: Regular rate and rhythm Lungs: Clear to auscultation Extremities: Without edema line neurological examination Mental status: The patient is awake, alert and oriented 3. His speech is clear. There is no dysarthria or aphasia. Patient is able to follow two-step commands. There is no right/left confusion. Cranial nerves: Pupils are equal at 1 mm and reactive. Visual felix are full to confrontation. Extraocular movements are intact. There is no nystagmus. Facial sensations intact. There is no facial asymmetry. Hearing is grossly intact. Uvula and palate are midline. Shoulder shrug is symmetric. Tongue protrudes midline. Motor: Strength is 5/5 throughout, with the exception of slight left sided weakness Coordination: Finger to nose and rapid alternating movements are intact. [id number] testing is intact Sensation: Grossly intact to light touch throughout Deep tendon reflexes: 3+/4+ throughout. Gait: Not assessed Assessment and Plan Assessment: 1. Transient neurologic deficits in a patient with a history of stroke. Likely these deficits are secondary to transient ischemic attack 2. History of previous stroke 3. History of hyperlipidemia 4. History of complicated migraine Plan: 1. MRI of brain to further evaluate for stroke 2. 2-D echocardiogram 3. Other stroke orders including lipid panel, hemoglobin A1c, TSH, PT, OT and speech therapy consultations 4. Continue aspirin 81 mg and Plavix 75 mg for 21 days then continue with Plavix monotherapy. Per patient reports, he had not been taking his Plavix for proximally 2 weeks 5. Continue high dose Lipitor 80 mg daily Thank you for allowing us to participate in the care of this very nice man Time with Patient: Greater than 30 (spent 40 minutes with patient via telemedicine)
[2021-11-24] MEDS ORDERED: ONDANSETRON 4 MG/2 ML VIAL IVP PRN (17:03)
[2021-11-24] MEDS ORDERED: ACETAMINOPHEN TAB 325 MG TAB PO PRN (17:03)
--- NOTE | 2021-11-24 17:29 | P.PN ---
Progress Note - Text Progress Note Date: 11/24/21 Patient was seen. No acute events overnight. Patient reports complete resolution of his symptoms. He reports no more confusion. He denies any numbness or tingling of his hands or face. He denies any chest pain, shortness breath or palpitations. No nausea or vomiting. No fever or chills. Patient is in no acute distress. Confusion with paresthesias, TIA versus complex migraine -Neurology consulted - MRI brain, Echocardiogram, Lipid panel, A1c, TSH, PT/OT/ST consult. Recommends Plavix and ASA for 21 days followed by Plavix monotherapy. Recommends Lipitor. -Continue with aspirin, statin -Neurochecks -Telemetry monitoring -Fall precautions Chronic conditions: Hypertension, hyperlipidemia, asthma -Continue with home meds DVT prophylaxis -Heparin subcu The patient is admitted with an anticipated less than 2 midnight stay for evaluation of TIA CODE STATUS: Full Code Discussed with: Patient Anticipated discharge date: 1-[address]: Home
[2021-11-24] MEDS: CLOPIDOGREL 75 MG TAB PO SCH (18:23)
[2021-11-25] MEDS: HEPARIN SODIUM,PORCINE/PF 5,000 UNIT/0.5 ML SYRINGE SQ SCH ×2 (01:12→07:29)
[2021-11-25 06:26] VITALS: TEMP 98.1
[2021-11-25 07:28] VITALS: BP 142/78; PULSE 62; RESP 16
[2021-11-25] MEDS: CLOPIDOGREL 75 MG TAB PO SCH (07:28)
[2021-11-25] MEDS ORDERED: ASPIRIN 81 MG PO SCH (09:00)
[2021-11-25 09:23] LABS: Basophils # (A) 0.06 X 10*3/uL (0.00-0.10); Basophils % (A) 0.7 %; Eosinophils % (A) 3.3 %; HCT 44.4 % (39.6-50.0); HGB 15.2 g/dL (13.0-17.0); Immature Grans, Automated 0.3 %; Lymphocytes # (A) 1.82 X 10*3/uL (0.90-5.00); Lymphocytes % (A) 20.1 %; MCH 30.5 pg (27.0-32.0); MCHC 34.2 g/dL (32.0-37.0); Mean Platelet Volume 9.8 fL (9.5-12.2); Monocytes # (A) 0.94 X 10*3/uL (0.20-1.00); Monocytes % (A) 10.4 %; NRBC Per 100 WBC 0 /100 WBCS (0.0-0.0); Neutrophils # (A) 5.89 X 10*3/uL (1.80-7.70); Neutrophils % (A) 65.2 %; Platelet Count 187 X 10*3/uL (140-440); RBC 4.99 X 10*6/uL (4.40-5.60); RDW 13.7 % (11.5-14.5); WBC 9.04 X 10*3/uL (4.50-10.00)
[2021-11-25 11:07] LABS: ALT 18 U/L (10-49); AST 33 U/L (14-35); African American GFR (CKD) 92.5 (60.0-200.0); Albumin/Globulin Ratio 1.29 (1.60-3.17); Alkaline Phosphatase 82 U/L (41-126); BUN/Creat Ratio 12.22 Ratio (12.00-20.00); Calcium 9.1 mg/dL (8.7-10.3); Carbon Dioxide 20.3 mmol/L (20.0-27.5); Chloride 105 mmol/L (96-109); Chol/HDL Ratio 2.82 Ratio; Globulin 3.1 g/dL (1.6-3.3); Glucose 92 mg/dL (70-110); LDL Cholesterol,Calculated 55.6 mg/dL (0.0-131.0); Non-African American GFR(CKD) 79.8 (60.0-200.0); Potassium 3.9 mmol/L (3.5-5.5); Sodium 139 mmol/L (135-145); Total Protein 7.1 g/dL (6.2-8.2)
--- NOTE | 2021-11-25 11:08 | P.PN ---
Subjective Progress Note Date: 11/25/21 The patient is an 81-year-old male who is seen in neurologic follow-up on November 25, 2021, via teleneurology. The patient was seen in neurologic consultation yesterday, November 24, 2021. At that time patient presented to the emergency department with complaints of transient right hand numbness which then traveled to his left hand. The patient then began to have a quite severe slurring of his speech and became confused. The patient did go to the emergency department in the [facility]. He was worked up with CT scan of the brain and CT angiogram of the head and neck. Both of these tests were negative for acute hemorrhage and infarct. The patient subsequently came to [facility] for further evaluation. MRI of the brain was performed yesterday. I have personally reviewed the image s. I do agree with the report. There is no evidence of acute hemorrhage or infarct This morning, the patient is neurologically stable. There has been no return of his symptoms. The patient's daughter is present at the bedside at the time of the evaluation. She reports that the patient was a little bit confused last night but says this is not unusual for him, when he is out of his usual enviro nment. Objective - Vital Signs Vital signs: Vital Signs Temp 98.1 F 11/25/21 07:00 Pulse 62 11/25/21 07:00 Resp 16 11/25/21 07:00 BP 142/78 11/25/21 07:00 Pulse Ox 100 11/25/21 07:00 FiO2 Intake & Output 11/24/21 11/25/21 11/25/21 18:59 06:59 18:59 Other: Voiding Method Toilet Toilet # Voids 1 - Exam Gen.: The patient is reclining in the bed. He is well-nourished, well-developed and in no acute distress HEENT: Head is atraumatic, normocephalic. Fundus not visualized. There is no scleral icterus. Mucous membranes are moist. Neck: Supple, without carotid bruits Heart: Regular rate and rhythm Lungs: Clear to auscultation Extremities: Without edema line neurological examination Mental status: The patient is awake, alert and oriented 3. His speech is clear. There is no dysarthria or aphasia. Patient is able to follow two-step commands. There is no right/left confusion. Cranial nerves: Pupils are equal at 1 mm and reactive. Visual felix are full to confrontation. Extraocular movements are intact. There is no nystagmus. Facial sensations intact. There is no facial asymmetry. Hearing is grossly intact. Uvula and palate are midline. Shoulder shrug is symmetric. Tongue protrudes midline. Motor: Strength is 5/5 throughout, with the exception of slight left sided weakness Coordination: Finger to nose and rapid alternating movements are intact. [id number]-ta-[id number] testing is intact Sensation: Grossly intact to light touch throughout Deep tendon reflexes: 3+/4+ throughout. Gait: Not assessed - Labs CBC & Chem 7: 11/25/21 06:21 Assessment and Plan Assessment: 1. Transient neurologic deficits in a patient with a history of stroke. Likely these deficits are secondary to transient ischemic attack. MRI of the brain is negative for acute ischemia 2. History of previous stroke 3. History of hyperlipidemia 4. History of complicated migraine Plan: 1. The patient is neurologically stable for discharge 2. 2-D echocardiogram should be done as an outpatient 3. Continue aspirin and Plavix for 21 days then, Plavix monotherapy thereafter 4. Continue high-dose Lipitor Time with Patient: Less than 30 (Spent 20 minutes with patient via telemedicine)
--- NOTE | 2021-11-25 11:17 | US ---
EXAMINATION TYPE: US carotid duplex BILAT DATE OF EXAM: 11/25/2021 COMPARISON: US 2020 CLINICAL HISTORY: 81-year-old male CVA. TECHNIQUE: Carotid duplex ultrasound examination. Indirect Doppler criteria was utilized. Exam done portable FINDINGS: EXAM MEASUREMENTS: RIGHT: Peak Systolic Velocity (PSV) cm/sec ----- Right CCA: 49.2 ----- Right ICA: 65.8 ----- Right ECA: 81.6 ICA/CCA ratio: 1.3 RIGHT: End Diastole cm/sec ----- Right CCA: 7.0 ----- Right ICA: 16.4 ----- Right ECA: 4.9 LEFT: Peak Systolic Velocity (PSV) cm/sec ----- Left CCA: 43.5 ----- Left ICA: 51.6 ----- Left ECA: 67.8 ICA/CCA ratio: 1.2 LEFT: End Diastole cm/sec ----- Left CCA: 6.2 ----- Left ICA: 11.4 ----- Left ECA: 6.8 VERTEBRALS (direction of flow): Right Vertebral: Antegrade Left Vertebral: Antegrade Rhythm: Normal Electrotyper notes: No significant stenosis IMPRESSION: No hemodynamically significant internal carotid artery stenosis on either side. Criteria for Assigning % of Stenosis / Diameter reduction (Estimation based on the indirect measurements of the internal carotid artery velocities (ICA PSV). 1. Normal (no stenosis)=ICA PSV < 125 cm/s: ratio < 2.0: ICA EDV<40 cm/s. 2. Less than 50% stenosis=ICA PSV < 125 cm/s: ratio < 2.0: ICA EDV<40 cm/s. 3. 50 to 69% stenosis=ICA PSV of 125 to 230 cm/s: ration 2.0 ? 4.0: ICA EDV 40-100 cm/s. 4. Greater than 70% stenosis to near occlusion= ICA PSV > 230 cm/s: ratio > 4.0: ICA EDV > 100 cm/s. 5. Near occlusion= ICA PSV velocities may be low or undetectable: variable ratio and ICA EDV. 6. Total occlusion=unable to detect flow.
--- NOTE | 2021-11-25 11:35 | P.DS ---
Providers Date of admission: 11/24/21 02:12 Expected date of discharge: 11/25/21 Attending physician: Chepe Simental MD Consults: 11/24/21 02:12 Consult Physician Routine Consulting Provider: Gladys Harris Consult Reason/Comments: TIA Do you want consulting provider notified?: Yes Primary care physician: Stated None Hospital Course: The patient is an 81-year-old male with a PMH of comfort migraine, hypertension, hyperlipidemia, and asthma who presented to the emergency room for confusion. History supplemented by the daughter at the bedside who notes that the patient was visiting up near [place] when he developed a severe headache accompanied by numbness of bilateral hands, face, and confusion. The patient and daughter report that . somewhat similar to his long-standing history of migraines which are usually accompanied with numbness involving the hands and the face. She reports however that confusion is a new finding for him, which prompted them to go to the emergency room. The patient was initially seen at facility close to [place] and subsequently left from the [facility] and presented for [place]. He reported that his symptoms resolved within 2 hours and he essentially feels at baseline at time of interview, which is also confirmed by the daughter at the bedside. The patient had some paperwork from the other facility which I documented that the CT angiogram was performed and was unremarkable and at the case was also discussed with the stroke team and that the patient was not deemed to be a candidate for TPA. Neurology was consulted for further management. Neurology recommended stroke workup including MRI brain, carotid Doppler, echocardiogram, A1c, lipid panel, PT/OT/ST consult. MRI brain was obtained which showed chronic small vessel ischemic disease, previous right-sided infarct that matured into cystic encephalomalacia, moderate to severe chronic fernandez sinusitis. Carotid Doppler was negative for flow-limiting stenosis. Echocardiogram is pending at the time of this note. Lipid panel showed total cholesterol 125 and LDL 55. A1c was 6.4. Patient was seen and examined on 11/25/2021. His daughter was at bedside. Patient reported complete resolution of his symptoms. Daughter reported the patient was back to baseline. Patient was adamant about wanting to be discharged home today. Case was discussed with nursing who stated that neurology cleared the patient for discharge. Physical therapy, occupational therapy and speech therapy was unable to see the patient during his hospitalization. He is advised to follow-up results of echocardiogram with his PCP. Advised to follow-up with his neurologist and managing broker at [facility] within 1 week of discharge. He will need to continue aspirin and Plavix for the next 21 days, after that can take Plavix as monotherapy. Family did state that patient had all home medications including Plavix and did not require any refills. General: [non toxic], [no distress], [appears at stated age] Derm: [warm], [dry] Head: [atraumatic], [normocephalic], [symmetric] Eyes: [EOMI], [no lid lag], [anicteric sclera] Mouth: [no lip lesion], [mucus membranes moist] Cardiovascular: [S1S2 reg], [no murmur] Lungs: [CTA bilateral], [no rhonchi, no rales] , [no accessory muscle use] Ext: [no gross muscle atrophy], [no edema], [no contractures] Neuro: [no focal neuro deficits] Psych: [Alert], [oriented], [appropriate affect] Discharge Diagnosis: #Confusion with paresthesias, TIA versus complex migraine #Pre-Diabetes #Hypertension #Hyperlipidemia #Asthma Pertinent Studies: MRI brain Carotid Doppler Echocardiogram Patient Condition at Discharge: Stable Plan - Discharge Summary New Discharge Prescriptions: Continue Montelukast Sodium [Singulair] 10 mg PO HS Aspirin EC [Ecotrin Low Dose] 81 mg PO DAILY Tamsulosin [Flomax] 0.4 mg PO BID Acetaminophen Tab [Tylenol] 500 mg PO Q6H PRN PRN Reason: Pain Or Fever > 100.5 Cholecalciferol [Vitamin D3 (25 Mcg = 1000 Iu)] 25 mcg PO DAILY Atorvastatin [Lipitor] 80 mg PO HS #30 tab Famotidine [Pepcid] 20 mg PO BID #60 tab Clopidogrel [Plavix] 75 mg PO DAILY #30 tab Fluticasone/Vilanterol [Breo Ellipta 100-25 Mcg Inhaler] 1 puff INHALATION RT-DAILY Venlafaxine HCl ER [Effexor XR] 75 mg PO DAILY Finasteride [Proscar] 5 mg PO DAILY Discharge Medication List Aspirin EC [Ecotrin Low Dose] 81 mg PO DAILY 12/05/14 [History] Montelukast Sodium [Singulair] 10 mg PO HS 12/05/14 [History] Tamsulosin [Flomax] 0.4 mg PO BID 05/15/15 [History] Acetaminophen Tab [Tylenol] 500 mg PO Q6H PRN 01/09/17 [History] Cholecalciferol [Vitamin D3 (25 Mcg = 1000 Iu)] 25 mcg PO DAILY 06/05/20 [History] Atorvastatin [Lipitor] 80 mg PO HS #30 tab 06/06/20 [Rx] Clopidogrel [Plavix] 75 mg PO DAILY #30 tab 06/06/20 [Rx] Famotidine [Pepcid] 20 mg PO BID #60 tab 06/06/20 [Rx] Fluticasone/Vilanterol [Breo Ellipta 100-25 Mcg Inhaler] 1 puff INHALATION RT- DAILY 09/18/20 [History] Venlafaxine HCl ER [Effexor XR] 75 mg PO DAILY 09/18/20 [History] Finasteride [Proscar] 5 mg PO DAILY 11/24/21 [History] Follow up Appointment(s)/Referral(s): None,Stated [Primary Care Provider] - 1-2 days Activity/Diet/Wound Care/Special Instructions: Diet: Cardiac Follow-up with your PCP within 1-2 days of discharge. Follow-up with your neurologist at [facility] within 1 week of discharge. Follow-up the results of echocardiogram with your PCP. Take all medications as advised. Continue aspirin and Plavix for 21 days. After that, you can discontinue aspirin and continue Plavix indefinitely. Continue Lipitor daily. Come back to the ED for worsening slurred speech, confusion, difficulty swallowing, numbness/weakness/tingling of the extremities. Discharge Disposition: HOME SELF-CARE
--- NOTE | 2021-11-25 16:01 | CA ---
Transthoracic Echo Report Name: Carroll Anderson Age: 81 Gender: M : 1940 Exam Date: 11/25/2021 11:18 Exam Location: [facility] Ht (in): 71 Wt (lb): 210 Ordering Physician: Susana Leal DO Attending/Referring Phys: Rough Carpenter Margie Tang RDCS Procedure CPT: Indications: tia Cardiac Hx: Technical Quality: Fair Contrast 1: Total Dose (mL): Contrast 2: Total Dose (mL): MEASUREMENTS (Male / Female) Normal Values 2D ECHO LV Diastolic Diameter PLAX 4.7 cm 4.2 - 5.9 / 3.9 - 5.3 cm LV Systolic Diameter PLAX 2.7 cm IVS Diastolic Thickness 1.4 cm 0.6 - 1.0 / 0.6 - 0.9 cm LVPW Diastolic Thickness 1.2 cm 0.6 - 1.0 / 0.6 - 0.9 cm LV Relative Wall Thickness 0.6 RV Internal Dim ED PLAX 3.7 cm LA Volume 66.9 cm??? 18 - 58 / 22 - 52 cm??? M-MODE Aortic Root Diameter MM 4.3 cm LA Systolic Diameter MM 3.4 cm LA Ao Ratio MM 0.8 AV Cusp Separation MM 1.8 cm DOPPLER AV Peak Velocity 145.2 cm/s AV Peak Gradient 8.4 mmHg AI Peak Velocity 323.4 cm/s AI Peak Gradient 41.8 mmHg AI Pressure Half Time 742.5 ms MV Area PHT 2.7 cm??? Mitral E Point Velocity 56.3 cm/s Mitral A Point Velocity 64.6 cm/s Mitral E to A Ratio 0.9 MV Deceleration Time 284.3 ms FINDINGS Left Ventricle Moderately increased left ventricular wall thickness. Normal left ventricular systolic function with no obvious regional wall motion abnormalities. Left ventricular ejection fraction is estimated at 55-60 %. Right Ventricle Mild right ventricular dilatation. Right Atrium Normal right atrial size. Left Atrium Mildly increased left atrial volume. Mildly increased left atrial area. Mitral Valve Mild mitral annular calcification. [id number] mitral regurgitation. Aortic Valve Mild to moderate aortic regurgitation. No aortic stenosis. Tricuspid Valve Mild tricuspid regurgitation.structurally normal tricuspid valve. Pulmonic Valve Trace pulmonic regurgitation. Pericardium No pericardial effusion. Aorta Normal size aortic root and proximal ascending aorta. CONCLUSIONS 1. Normal left ventricle size and systolic function 2. Mild to moderate mitral and aortic regurgitation 3. Mild tricuspid regurgitation Previewed by: Dr. Kandi Brenner MD (Electronically Signed) Final Date: 25 November 2021 16:00
== END 2021-11-25 12:53 | disposition home or self-care (01) ==
LOC: EC 01:57 → 6NMEDSUR 02:12
PROVIDERS: ADMIT Internal Medicine; ATTEND Internal Medicine
DX: R41.0 Disorientation, unspecified (principal); R20.2 Paresthesia of skin; G43.909 Migraine, unspecified, not intractable, without status migrainosus; R73.03 Prediabetes; I10 Essential (primary) hypertension; J45.909 Unspecified asthma, uncomplicated; E78.5 Hyperlipidemia, unspecified; M19.90 Unspecified osteoarthritis, unspecified site; G47.30 Sleep apnea, unspecified; Z87.01 Personal history of pneumonia (recurrent); Z95.1 Presence of aortocoronary bypass graft; Z98.41 Cataract extraction status, right eye; Z98.890 Other specified postprocedural states; F32.A Depression, unspecified; K21.9 Gastro-esophageal reflux disease without esophagitis; Z85.9 Personal history of malignant neoplasm, unspecified; Z86.73 Personal history of transient ischemic attack (TIA), and cerebral infarction without residual deficits; Z82.3 Family history of stroke; Z80.3 Family history of malignant neoplasm of breast; Z80.8 Family history of malignant neoplasm of other organs or systems; Z82.49 Family history of ischemic heart disease and other diseases of the circulatory system; Z79.02 Long term (current) use of antithrombotics/antiplatelets; Z79.82 Long term (current) use of aspirin; Z79.899 Other long term (current) drug therapy; Z88.2 Allergy status to sulfonamides; Z88.8 Allergy status to other drugs, medicaments and biological substances; Z91.018 Allergy to other foods; Z91.011 Allergy to milk products
CPT/HCPCS: 96372 ×2; 96360; 96361; 99285; 93306; 80061; 80053; 84443; 85025; 83036; 93880; 70551; G0378 ×2; J1644 ×2

== ENCOUNTER → 2022-08-06 | Outpatient (CLI) | payer MEDICARE, OTHER ==
--- NOTE | 2022-08-06 16:15 | P.PN ---
Subjective Progress Note Date: 08/06/22 This is a 82-year-old male patient was coming in for a follow-up regarding his obstructive sleep apnea. The patient was diagnosed having MYNOR, a severe case with an AHI of 52 and the patient is currently on a CPAP at a pressure of 9 cm of water. He is known to have coronary artery disease with previous bypass surgery. The patient also has other comorbid conditions including diabetes mellitus, hypertension, BPH and over the past few years, the patient had a CVA with some residual left-sided weakness and the patient currently is using a cane for mobility. He does have a previous right ankle fusion. Over the past few years, the patient has been very compliant to CPAP therapy. My last evaluation on this patient was back in 01/11/2020. He continues to use the same CPAP unit. This is a functioning ResMed 10 which is set at a pressure of 9 cm of water. Based on the compliance data that has been collected over the past 30 days, the patient has been averaging around 4.6 hours of CPAP use per night. His CPAP usage for more than 4 hours as and the patient has a leak of 55 L/m and his AHI is down to 11. Note that the patient is having excessive amount of leaks. I checked the mask interface and the patient has an air fit p30 i nasal mask that she uses on a regular basis and the mask has got on hold and loose and associated excess amount of leaks around the nostrils. No recent weight gain. He has quit alcohol drinking many years back and he is not drinking on a regular basis. He does utilize caffeinated beverages and coffee in the morning. No nighttime chest pain or shortness of breath. His waken up refreshed in his sleep quality is good and he denies having his other specific complaints Medications include Brio, Lipitor, Plavix, Pepcid, aspirin, vitamin D, Singulair, Effexor, Flomax, finasteride,farxiga Review of system. Therefore review of system was done and it is essentially negative other than the things mentioned above and the history of present illness Neely score is at 14 BP is 131/74 with a pulse of 71 and a respiration of 16 and a temperature of 98.1. Height is 5 feet and 9 inches, weight is 204 pounds and a body mass index of 30.7. Neely score is at 14 and oxygen saturations 96% on room air oxygen. The patient appeared well nourished and normally developed. Vital signs as documented. Head exam is unremarkable. No scleral icterus or corneal arcus noted. Neck is without jugular venous distension, thyromegaly, or carotid bruits. The patient is a Mallampati class IV Carotid upstrokes are brisk bilaterally. Lungs are clear to auscultation and percussion. Cardiac exam reveals the PMI to be normally sized and situated. Rhythm is regular. First and second heart sounds normal. No murmurs, rubs or gallops. Abdominal exam reveals normal bowel sounds, no masses, no organomegaly and no aortic enlargement. Extremities are nonedematous and both femoral and pedal pulses are normal. Examination of the skin revealed no evidence of significant rashes, suspicious appearing nevi or other concerning lesions.Neurologically, the patient is awake and alert and the patient does not have any focal neurological deficit. Cranial nerves are essentially intact. 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 He is compliant No need for any further adjustment of this point in time. I think with the new mask, the air leaks and improve and the patient's AHI will drop further. See me back in one year's time in follow-up.
== END ==
LOC: SLEEP 15:43
PROVIDERS: ATTEND Internal Medicine Critical Care Medicine
DX: G47.33 Obstructive sleep apnea (adult) (pediatric) (principal); Z99.89 Dependence on other enabling machines and devices; I25.10 Atherosclerotic heart disease of native coronary artery without angina pectoris; E11.9 Type 2 diabetes mellitus without complications; E78.5 Hyperlipidemia, unspecified; I10 Essential (primary) hypertension; N40.0 Benign prostatic hyperplasia without lower urinary tract symptoms; R53.1 Weakness; Z95.1 Presence of aortocoronary bypass graft; Z86.73 Personal history of transient ischemic attack (TIA), and cerebral infarction without residual deficits; Z88.2 Allergy status to sulfonamides; Z91.02 Food additives allergy status; Z91.011 Allergy to milk products; Z88.5 Allergy status to narcotic agent; Z79.82 Long term (current) use of aspirin
CPT/HCPCS: 99212

== ENCOUNTER → 2024-04-05 | Outpatient (CLI) | payer MEDICARE, OTHER ==
--- NOTE | 2024-04-05 09:52 | MR ---
INDICATION: Patient age:Male; 84 years old; Reason for study: R41.82 ALTERED MENTAL STATUS; H. COMPARISON: MRI brain 11/24/2021, 06/05/2020, MRA head 06/05/2020, CT brain 06/04/2020, CT brain C-spine 03/05/2019. TECHNIQUE: Multi planar, multi sequence imaging was performed through the brain were obtained without the administration of intravenous contrast. FINDINGS: The duvall-white junctions, ventricular system, basal cisterns appear unremarkable. Age-appropriate cer ebral volume loss. Few foci of restricted diffusion identified within the right parieto-occipital lob es. Additional focus identified within the right cerebellum. Encephalomalacia from prior infarct invo lving the right conn radiata and right basal ganglia redemonstrated. Intracranial arterial flow voi ds are maintained. Midline structures show no abnormality. Confluent areas of high T2/FLAIR signal in tensity are seen within the periventricular white matter additional foci in the right side of the bra instem and along the descending tracts. The susceptibility weighted images demonstrate a couple foci of blooming artifact within the joann consistent with prior hemosiderin deposition. The bone marrow signal is within normal limits. Bilateral aphakia. Severe paranasal sinus disease wi th mucosal thickening throughout the paranasal sinuses. Similar partial opacification of the left mas toid air cells. IMPRESSION: 1. Few foci of restricted diffusion involving the right parieto-occipital lobes and right cerebellum consistent with acute/subacute ischemia. 2. Similar appearance of cystic encephalomalacia involving the right conn radiata and basal ganglia from prior exam. 3. Similar nonspecific white matter changes, likely related to small vessel ischemic disease. 4. Severe paranasal sinus disease redemonstrated. Findings relayed to ordering provider via [employer] messaging at 9:49 AM on 04/05/2024. [facility], , 04/05/2024 9:49 AM
== END | disposition home or self-care (01) ==
LOC: RADMRIMAIN 05:57
PROVIDERS: ATTEND Family Medicine
DX: J34.89 Other specified disorders of nose and nasal sinuses (principal); G93.89 Other specified disorders of brain; R41.82 Altered mental status, unspecified
CPT/HCPCS: 70551

== ENCOUNTER → 2024-05-05 | Outpatient (CLI) | payer MEDICARE, OTHER ==
--- NOTE | 2024-05-05 08:55 | MR ---
EXAMINATION TYPE: MR angio head wo/neck wo/w con DATE OF EXAM: 05/05/2024 COMPARISON: MRA [place] June 05, 2020. Carotid ultrasound November 25, 2021 HISTORY: Headaches, CVA Rt occipito-parietal Mar 2024. Cerebrovascular disease. TECHNIQUE: Time of flight images focusing on the [place] were performed without contrast.. 2-D and 3-D postprocessing imaging is performed on the MRI scanner. MRA of the neck without and with contrast, the patient injected with 8 cc of gadolinium. FINDINGS: Codominant vertebral arteries are patent to the basilar junction. Patent anterior communica ting artery is redemonstrated. No large vessel occlusion or aneurysm at the level of the [place]. No significant change from prior. There is bovine type arch which is normal variant. No sonographically significant stenosis is present at the carotid bifurcations. Patent external carotid arteries are seen bilaterally. There is focal e ccentric plaque in the left proximal internal carotid artery causing stenosis approaching but under 5 0%. Visualized portion of Vertebral arteries are contiguous. IMPRESSION: 1. No hemodynamically significant stenosis at the carotid bifurcations bilaterally. 2. No large vessel occlusion or aneurysm at the level of the [place]. [facility], , 05/05/2024 8:53 AM
--- NOTE | 2024-06-08 10:54 | P.CEMON ---
30 DAY EVENT MONITOR REPORT: INDICATION: I67.9, cerebrovascular disease, palpitations. START DATE: 05/05/2024 END DATE: 06/03/2024 Patient wore the monitor for 26 days 6 hours FINDINGS: Maximum heart rate 120 bpm, lowest heart rate 31 bpm at midnight known to 08/31/2024. Average heart rate 66 bpm. No reported A-fib, atrial flutter, SVT. No sustained ventricular tachycardia's. 2% PAC burden, 1% PVC burden Second-degree Mobitz type I heart block noticed with lowest heart rate of 31 bpm. This was mostly noticed during the nighttime when the patient must be sleeping. Patient had a 2.4-second pause on 06/02/2024 at 2:27 AM. Conclusion 2.4-second pause Second-degree Mobitz 1 heart block during sleep Clinical correlation warranted Radu Vargas MD, FACC, RPVI Thank you for allowing [facility] to participate in this patient's care. Feel free to reach out in case of any followup questions.
== END | disposition home or self-care (01) ==
LOC: RADMRIMAIN 06:41
PROVIDERS: ATTEND Psychiatry & Neurology Neurology
DX: I44.1 Atrioventricular block, second degree (principal); I67.9 Cerebrovascular disease, unspecified; R00.2 Palpitations
CPT/HCPCS: 93270; 70544; 70549; A9585

== ENCOUNTER 2024-10-19 13:39 | Emergency (ER) | payer MEDICARE, OTHER ==
[2024-10-19 15:13] LABS: Basophils # (A) 0.05 10*3/uL (0.00-0.10); Basophils % (A) 0.7 %; Eosinophils # (A) 0.19 10*3/uL (0.04-0.35); Eosinophils % (A) 2.7 %; HCT 38.6 % (39.6-50.0); HGB 13.0 g/dL (13.0-17.0); Lymphocytes # (A) 0.95 10*3/uL (0.90-5.00); Lymphocytes % (A) 13.4 %; MCH 29.1 pg (27.0-32.0); MCHC 33.7 g/dL (32.0-37.0); MCV 86.5 fL (80.0-97.0); Monocytes # (A) 1.02 10*3/uL (0.20-1.00); Monocytes % (A) 14.4 %; Neutrophils # (A) 4.83 10*3/uL (1.80-7.70); Neutrophils % (A) 68.1 %; Platelet Count 269 10*3/uL (140-440); RBC 4.46 10*6/uL (4.40-5.60); RDW 13.8 % (11.5-14.5); WBC 7.09 10*3/uL (4.50-10.00)
[2024-10-19 15:24] LABS: ALT 13 U/L (4-49); AST 22 U/L (17-59); African American GFR (CKD) >90 (>60 ml/min/1.73 sqM); Albumin 3.5 g/dL (3.5-5.0); Alkaline Phosphatase 76 U/L (38-126); Anion Gap 9 mmol/L; Blood Urea Nitrogen 14 mg/dL (9-20); Calcium 8.7 mg/dL (8.4-10.2); Carbon Dioxide 24 mmol/L (22-30); Chloride 105 mmol/L (98-107); Creatine Kinase 38 U/L (55-170); Glucose 92 mg/dL (74-99); Non-African American GFR(CKD) 88 (>60 ml/min/1.73 sqM); Potassium 4.3 mmol/L (3.5-5.1); Sodium 138 mmol/L (137-145); Total Protein 7.1 g/dL (6.3-8.2)
[2024-10-19 16:42] LABS: INR 1.1 (<1.2); Partial Thromboplastin Time 27.8 sec (22.0-30.0); Prothrombin Time 12.0 sec (10.0-12.5)
--- NOTE | 2024-10-19 16:53 | ED ---
Neuro HPI - General Chief Complaint: Neuro Symptoms/Deficit Stated Complaint: Abn lab results Time Seen by Provider: 10/19/24 13:50 Source: patient Mode of arrival: ambulatory Limitations: no limitations - History of Present Illness Is the patient presenting with stroke symptoms?: Yes Initial Comments: 84-year-old male presents to the emergency department with report of stroke. Patient has a history of stroke. He takes aspirin 81 mg and Plavix. Daughter at bedside states that approximately 2 weeks ago he started having symptoms of a headache and confusion. She reports to numerous episodes of similar in the past which were diagnosed as TIAs. He follows with Dr. Gillette. States that he has had significant evaluation of these episodes. His most recent stroke was in March. When his confusion started 2 weeks ago she saw his primary care doctor. They ordered an MRI. MRI was completed on Friday. They received a call today stating that the study was positive for stroke and the patient needed to come into the ER. The daughter did not feel that this was necessary as he has had multiple strokes in the past however she did agree to comply. She states that most of the patient's symptoms have resolved at this time. He is not confused any longer and has a residual minor headache. She reports that they are pursuing more comfort measures for the patient due to his age and medical history. Patient denies any symptoms at this time other than a 2 out of 10 headache. No fevers. No head injury. No other alleviating, precipitating or modifying factors - Related Data Home Medications: Home Medications Medication Instructions Recorded Confirmed Montelukast Sodium [Singulair] 10 mg PO HS 12/05/14 10/19/24 Tamsulosin [Flomax] 0.4 mg PO BID 05/15/15 10/19/24 Fluticasone/Vilanterol [Breo 1 puff INHALATION RT-DAILY 09/18/20 10/19/24 Ellipta 100-25 Mcg Inhaler] Venlafaxine HCl ER [Effexor XR] 75 mg PO DAILY 09/18/20 10/19/24 Finasteride [Proscar] 5 mg PO DAILY 11/24/21 10/19/24 Aspirin EC [Ecotrin Low Dose] 81 mg PO HS 10/19/24 10/19/24 Dapagliflozin Propanediol [Farxiga] 5 mg PO DAILY 10/19/24 10/19/24 Dorzolamide-Timol 2.23%/0.68% 1 drop BOTH EYES BID 10/19/24 10/19/24 [Cosopt] Latanoprost [Latanoprost 0.005%] 1 drop BOTH EYES HS 10/19/24 10/19/24 Mirabegron [Myrbetriq] 25 mg PO DAILY 10/19/24 10/19/24 Multivitamins, Thera [Multivitamin 1 tab PO DAILY 10/19/24 10/19/24 (formulary)] Ranolazine [Ranexa] 500 mg PO BID 10/19/24 10/19/24 Previous Rx's Medication Instructions Recorded Atorvastatin [Lipitor] 80 mg PO HS #30 tab 06/06/20 Clopidogrel [Plavix] 75 mg PO DAILY #30 tab 06/06/20 Famotidine [Pepcid] 20 mg PO BID #60 tab 06/06/20 Ticagrelor [Brilinta] 90 mg PO BID #60 tab 10/19/24 Allergies/Adverse Reactions: Allergies Allergy/AdvReac Type Severity Reaction Status Date / Time Sulfa (Sulfonamide Allergy Severe Itching Verified 10/19/24 18:14 Antibiotics) cheese Allergy Unknown, Verified 10/19/24 18:14 ALLERGY TESTING RESULTS honey Allergy Unknown Verified 10/19/24 18:14 Milk Containing Products Allergy Unknown Verified 10/19/24 18:14 (Dairy) [Dairy] yeast, dried [yeast] Allergy Unknown Verified 10/19/24 18:14 metformin AdvReac Diarrhea Verified 10/19/24 18:14 sulfamethoxazole AdvReac Diarrhea Verified 10/19/24 18:14 [From Bactrim] trimethoprim [From Bactrim] AdvReac Diarrhea Verified 10/19/24 18:14 apples Allergy Allergy Uncoded 10/19/24 18:14 Testing Review of Systems ROS Statement: Those systems with pertinent positive or pertinent negative responses have been documented in the HPI. ROS Other: All systems not noted in ROS Statement are negative. General Exam Limitations: no limitations General appearance: alert, in no apparent distress Head exam: Present: atraumatic, normocephalic, normal inspection Eye exam: Present: normal appearance, PERRL, EOMI. Absent: scleral icterus, conjunctival injection, periorbital swelling ENT exam: Present: normal exam, mucous membranes moist Neck exam: Present: normal inspection. Absent: tenderness, meningismus, lymphadenopathy Respiratory exam: Present: normal lung sounds bilaterally. Absent: respiratory distress, wheezes, rales, rhonchi, stridor Cardiovascular Exam: Present: regular rate, normal rhythm, normal heart sounds. Absent: systolic murmur, diastolic murmur, rubs, gallop, clicks GI/Abdominal exam: Present: soft, normal bowel sounds. Absent: distended, tenderness, guarding, rebound, rigid Extremities exam: Present: normal inspection, full ROM, normal capillary refill. Absent: tenderness, pedal edema, joint swelling, calf tenderness Back exam: Present: normal inspection Neurological exam: Present: alert, CN II-XII intact Psychiatric exam: Present: normal affect, normal mood Skin exam: Present: warm, dry, intact, normal color. Absent: rash Stroke MDM - Lab Data Result diagrams: 10/19/24 15:00 10/19/24 15:00 Lab Results 10/19/24 10/19/24 10/19/24 Range/Units 15:00 15:00 15:00 WBC 7.09 (4.50-10.00) 10*3/uL RBC 4.46 (4.40-5.60) 10*6/uL Hgb 13.0 (13.0-17.0) g/dL Hct 38.6 L (39.6-50.0) % MCV 86.5 (80.0-97.0) fL MCH 29.1 (27.0-32.0) pg MCHC 33.7 (32.0-37.0) g/dL Plt Count 269 (140-440) 10*3/uL MPV 8.8 L (9.5-12.2) fL Immature Gran % (Auto) 0.7 % Neutrophils % 68.1 % Lymphocytes % 13.4 % Monocytes % 14.4 % Eosinophils % 2.7 % Basophils % 0.7 % Immature Gran # 0.05 H (0.00-0.04) 10*3/uL Neutrophils # 4.83 (1.80-7.70) 10*3/uL Lymphocytes # 0.95 (0.90-5.00) 10*3/uL Monocytes # 1.02 H (0.20-1.00) 10*3/uL Eosinophils # 0.19 (0.04-0.35) 10*3/uL Basophils # 0.05 (0.00-0.10) 10*3/uL PT (10.0-12.5) sec INR (<1.2) APTT (22.0-30.0) sec Sodium 138 (137-145) mmol/L Potassium 4.3 (3.5-5.1) mmol/L Chloride 105 (98-107) mmol/L Carbon Dioxide 24 (22-30) mmol/L Anion Gap 9 mmol/L BUN 14 (9-20) mg/dL Creatinine 0.67 (0.66-1.25) mg/dL Est GFR (CKD-EPI)AfAm >90 (>60 ml/min/1.73 sqM) Est GFR (CKD-EPI)NonAf 88 (>60 ml/min/1.73 sqM) Glucose 92 (74-99) mg/dL Calcium 8.7 (8.4-10.2) mg/dL Total Bilirubin 0.5 (0.2-1.3) mg/dL AST 22 (17-59) U/L ALT 13 (4-49) U/L Alkaline Phosphatase 76 (38-126) U/L Creatine Kinase 38 L (55-170) U/L Troponin I <0.012 (0.000-0.034) ng/mL Total Protein 7.1 (6.3-8.2) g/dL Albumin 3.5 (3.5-5.0) g/dL 10/19/24 Range/Units 15:58 WBC (4.50-10.00) 10*3/uL RBC (4.40-5.60) 10*6/uL Hgb (13.0-17.0) g/dL Hct (39.6-50.0) % MCV (80.0-97.0) fL MCH (27.0-32.0) pg MCHC (32.0-37.0) g/dL Plt Count (140-440) 10*3/uL MPV (9.5-12.2) fL Immature Gran % (Auto) % Neutrophils % % Lymphocytes % % Monocytes % % Eosinophils % % Basophils % % Immature Gran # (0.00-0.04) 10*3/uL Neutrophils # (1.80-7.70) 10*3/uL Lymphocytes # (0.90-5.00) 10*3/uL Monocytes # (0.20-1.00) 10*3/uL Eosinophils # (0.04-0.35) 10*3/uL Basophils # (0.00-0.10) 10*3/uL PT 12.0 (10.0-12.5) sec INR 1.1 (<1.2) APTT 27.8 (22.0-30.0) sec Sodium (137-145) mmol/L Potassium (3.5-5.1) mmol/L Chloride (98-107) mmol/L Carbon Dioxide (22-30) mmol/L Anion Gap mmol/L BUN (9-20) mg/dL Creatinine (0.66-1.25) mg/dL Est GFR (CKD-EPI)AfAm (>60 ml/min/1.73 sqM) Est GFR (CKD-EPI)NonAf (>60 ml/min/1.73 sqM) Glucose (74-99) mg/dL Calcium (8.4-10.2) mg/dL Total Bilirubin (0.2-1.3) mg/dL AST (17-59) U/L ALT (4-49) U/L Alkaline Phosphatase (38-126) U/L Creatine Kinase (55-170) U/L Troponin I (0.000-0.034) ng/mL Total Protein (6.3-8.2) g/dL Albumin (3.5-5.0) g/dL - Medical Decision Making Was pt. sent in by a medical professional or institution (, PA, FIELD ARTILLERY TARGETING TECHNICIAN, urgent care, hospital, or fdc...) When possible be specific @ -Patient was sent in from the primary care office Did you speak to anyone other than the patient for history (EMS, parent, family, police, friend...)? What history was obtained from this source @ -Spoke with the daughter for history Did you review nursing and triage notes (agree or disagree)? Why? @ -I reviewed and agree with nursing and triage notes Were old charts reviewed (outside hosp., previous admission, EMS record, old EKG, old radiological studies, urgent care reports/EKG's, fdc records)? Report findings @ -I reviewed the MRI results that were completed on Friday which demonstrate acute stroke Differential Diagnosis (chest pain, altered mental status, abdominal pain women, abdominal pain men, vaginal bleeding, weakness, fever, dyspnea, syncope, headache, dizziness, GI bleed, back pain, seizure, CVA, palpatations, mental health, musculoskeletal)? @ -Differential CVA Ischemic stroke, hemorrhagic stroke, brain tumor, atypical migraine, Wernicke's encephalopathy, seizure, multiple sclerosis, meningitis, encephalitis, hypoglycemia, Guillain-Walker, electrolytes disturbance, myasthenia gravis.... This is not meant to be an all-inclusive list EKG interpreted by me (3pts min.). @ -Yes and demonstrates sinus bradycardia with a rate of 53. [place] interval 296. QRS 108. QTc of 409. No acute ST segment elevations or depressions X-rays interpreted by me (1pt min.). @ -None done CT interpreted by me (1pt min.). @ -None done U/S interpreted by me (1pt. min.). @ -None done What testing was considered but not performed or refused? (CT, X-rays, U/S, labs)? Why? @ -Echo and carotids however patient does not want to be admitted. Daughter is agreeable to this What meds were considered but not given or refused? Why? @ -None Did you discuss the management of the patient with other professionals (professionals i.e. , PA, FIELD ARTILLERY TARGETING TECHNICIAN, lab, RT, psych nurse, sexual assault social worker, director advertising, teacher, public affairs officer, case technician)? Give summary @ -Spoke with Dr. Harris for recommendations Was smoking cessation discussed for >3mins.? @ -No Was critical care preformed (if so, how long)? @ -No Were there social determinants of health that impacted care today? How? (Homelessness, low income, unemployed, alcoholism, drug addiction, transport ation, low edu. Level, literacy, decrease access to med. care, care home, rehab)? @ -No Was there de-escalation of care discussed even if they declined (Discuss DNR or withdrawal of care, Hospice)? DNR status @ -No What co-morbidities impacted this encounter? (DM, HTN, Smoking, COPD, CAD, Cancer, CVA, ARF, Chemo, Hep., AIDS, mental health diagnosis, sleep apnea, morbid obesity)? @ -CVA Was patient admitted / discharged? Hospital course, mention meds given and route, prescriptions, significant lab abnormalities, going to OR and other pertinent info. @ -Upon arrival patient seen and evaluated in bed 19. Thorough history and physical exam was performed. We did obtain the MRI results which were completed at [facility]. It demonstrates a small focus of impeding diffusion in the right periventricular white matter along the body of the left lateral ventricle. I did conduct laboratory studies. I recommended admission for echo and carotids with neurology consult. Daughter is the patient's decision-maker. States that she would prefer that her father remain comfortable at this time. She is questioning whether there are any medication changes we can make and have the patient follow-up outpatient so that way he can be at home. I did call and speak with Dr. harris. He also recommended admission but was willing to provide recommendations as he understands that comfort is the main goal over aggressive treatment. He did recommend that the patient be placed on Brilinta twice daily and continue taking the baby aspirin. He will follow-up with Dr. Gillette. The daughter is aware that the preferred treatment plan would be for the patient to be admitted. She is aware of this and understands the risks of leaving. Patient was given the first dose in the emergency department. Prescription called to the pharmacy. Patient discharged in stable condition Undiagnosed new problem with uncertain prognosis? @ -No Drug Therapy requiring intensive monitoring for toxicity (Heparin, Nitro, Insulin, Cardizem)? @ -No Were any procedures done? @ -No Diagnosis/symptom? @ -Acute CVA, history of CVA Acute, or Chronic, or Acute on Chronic? @ -Acute Uncomplicated (without systemic symptoms) or Complicated (systemic symptoms)? @ -Complicated Side effects of treatment? @ -No Exacerbation, Progression, or Severe Exacerbation? @ -No Poses a threat to life or bodily function? How? (Chest pain, [place], [place], pneumonia, PE, COPD, DKA, ARF, appy, cholecystitis, CVA, Diverticulitis, Homicidal, Suicidal, threat to staff... and all critical care pts) @ -Yes this patient does have signs of new stroke Past Medical History Past Medical History: Asthma, Cancer, CVA/TIA, GERD/Reflux, Hyperlipidemia, Osteoarthritis (OA), Sleep Apnea/CPAP/BIPAP Additional Past Medical History / Comment(s): 01/10/17 ADMISSION FOR PNEUMONIA. Patient reports that he no longer has DM as of reports from DR. OSAMN. Migra roxanne. USES CPAP. History of Any Multi-Drug Resistant Organisms: None Reported Past Surgical History: Coronary Bypass/CABG, Orthopedic Surgery, Tonsillectomy Additional Past Surgical History / Comment(s): marlyn rotator cuff (rt x 2), rt ankle reconstructions, tera fundoplication., CABG 01/2015, nasal surgery, left knee arthroscopy, marlyn cataracts Past Anesthesia/Blood Transfusion Reactions: Previous Problems w/ Anesthesia Additional Past Anesthesia/Blood Transfusion Reaction / Comment(s): confusion and hallucinations after anesthesia Past Psychological History: Depression Smoking Status: Never smoker Past Alcohol Use History: None Reported Past Drug Use History: None Reported - Past Family History Mother Family Medical History: Cancer, CVA/TIA Additional Family Medical History / Comment(s): skin and breast cancer Father Family Medical History: Congestive Heart Failure (CHF) Additional Family Medical History / Comment(s): pacemaker/aicd Course Vital Signs 10/19/24 10/19/24 10/19/24 13:42 16:00 17:55 Temperature 97.7 F 97.9 F Pulse Rate 63 49 L 51 L Respiratory 18 18 16 Rate Blood Pressure 128/72 133/61 132/56 O2 Sat by Pulse 97 98 98 Oximetry Disposition Clinical Impression: CVA (cerebral vascular accident) Disposition: HOME SELF-CARE Condition: Stable Instructions (If sedation given, give patient instructions): Stroke (DC) Additional Instructions: Please stop taking the Plavix. Start taking the Brilinta twice a day starting tomorrow. Continue all of the rest of your medications. Get the soonest appointment that you can with Dr. Gillette. Return for any new or worsening symptoms. Our neurologist did recommend EEG Prescriptions: Ticagrelor [Brilinta] 90 mg PO BID #60 tab Is patient prescribed a controlled substance at d/c from ED?: No Referrals: Eugene Liu MD [Primary Care Provider] - 1-2 days Arsh Gillette DO [STAFF PHYSICIAN] - 1-2 days Time of Disposition: 17:24
[2024-10-19] MEDS: TICAGRELOR 90 MG TAB PO STA (17:49)
[2024-10-19 17:58] VITALS: BP 132/56; PULSE 51; RESP 16; TEMP 97.9
== END 2024-10-19 17:58 | disposition home or self-care (01) ==
LOC: EC 13:39
DX: I63.9 Cerebral infarction, unspecified (principal); Z88.1 Allergy status to other antibiotic agents; Z88.2 Allergy status to sulfonamides; Z91.011 Allergy to milk products; Z91.018 Allergy to other foods
CPT/HCPCS: 36415; 80053; 82550; 84484; 85025; 85610; 85730; 93005; 99285